=== PATIENT | male | born 2000 | race Caucasian/White ===

== ENCOUNTER 2020-10-20 15:16 | Emergency (ER) | payer MEDICAID ==
[~2020-10-20] VITALS: Ht 170.2 cm; Wt 63.6 kg
[2020-10-20] MEDS ORDERED: QUET300T2 PO (15:41)
[2020-10-20] MEDS ORDERED: ARIP5TAB14 PO ×2 (15:41)
[2020-10-20] MEDS ORDERED: DIVA500T9 PO (15:41)
[2020-10-20] MEDS ORDERED: BUSP10TA11 PO (15:41)
[2020-10-20] MEDS ORDERED: CETI-90 PO (15:41)
[2020-10-20] MEDS ORDERED: OMEP40CA21 PO (15:41)
--- NOTE | 2020-10-20 16:06 | NUR ---
Per pt's mother, last psychiatric hospitalization was 04/2020. Pt is responding to internal stimuli AEB his talking when none engaged with him with simultaneous hand gestures in the air.
[2020-10-20] MEDS ORDERED: LORazepam 2 mg/ml vial IM ONE (16:25)
[2020-10-20 16:44] LABS: BASOPHILS # (AUTO) 0.1 X10'3 (0-0.2); BASOPHILS % (AUTO) 0.7 % (0-1); EOSINOPHILS % (AUTO) 0.1 % (0-6); HEMATOCRIT 39.9 % (42.0-52.0); HEMOGLOBIN 13.7 g/dl (14.0-17.9); LYMPHOCYTES # (AUTO) 1.7 X10'3 (1.1-4.8); LYMPHOCYTES % (AUTO) 19.1 % (21-51); MEAN CORPUSCULAR HEMOGLOBIN 31.6 PG (27.0-31.0); MEAN CORPUSCULAR HGB CONC 34.3 g/dL (33.0-36.5); MEAN CORPUSCULAR VOLUME 92.1 FL (78-98); MEAN PLATELET VOLUME 7.7 FL (7.4-10.4); MONOCYTES # (AUTO) 0.9 X10'3 (0-0.9); MONOCYTES % (AUTO) 10.3 % (2-12); NEUTROPHILS # (AUTO) 6.2 X10'3 (1.8-7.7); NEUTROPHILS % (AUTO) 69.8 % (42-75); PLATELET COUNT 249 X10'3 (140-440); RED BLOOD COUNT 4.33 X10'6 (4.70-6.10); RED CELL DISTRIBUTION WIDTH 13.1 % (11.5-14.5); WHITE BLOOD COUNT 8.9 X10'3 (4.5-11.0)
[2020-10-20 16:58] LABS: ALANINE AMINOTRANSFERASE 23 U/L (12-78); ALBUMIN/GLOBULIN RATIO 1.3 (1.1-1.5); ALKALINE PHOSPHATASE 70 IU/L (46-116); ANION GAP 11 (8-16); ASPARTATE AMINO TRANSFERASE 28 U/L (10-37); BILIRUBIN,TOTAL 0.5 MG/DL (0.1-1.0); BLOOD UREA NITROGEN 17 MG/DL (7-18); CALCIUM 8.7 MG/DL (8.5-10.1); CHLORIDE 103 MMOL/L (99-107); CREATININE 1.06 MG/DL (0.60-1.10); GLUCOSE 111 MG/DL (70-104); POTASSIUM 3.3 MMOL/L (3.5-5.1); SODIUM 139 MMOL/L (135-145); TOTAL PROTEIN 7.2 G/DL (6.4-8.2); eGFR 88 ML/MIN
[2020-10-20] MEDS ORDERED: potassium Cl 20 mEq SR tablet PO ONE (17:05)
[2020-10-20 17:18] LABS: ETHANOL < 0.010 GM/DL (0.0-0.010)
[2020-10-20] MEDS ORDERED: OLANZapine **IM** 10 mg inj. IM ONE (17:20)
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
[2020-10-20 17:41] LABS: CLARITY,URINE SLIGHTLY CLOUDY (Clear); COLOR,URINE YELLOW (Yellow); GLUCOSE, URINE NEGATIVE (Neg); KETONES,URINE TRACE mg/dl (Neg); LEUKOCYTE ESTERASE ,URINE NEGATIVE (Neg); NITRITES, URINE NEGATIVE (Neg); OCCULT BLOOD,URINE NEGATIVE (Neg); PH,URINE 7.5 (4.8-8.0); PROTEIN,URINE TRACE mg/dl (Neg)
[2020-10-20 17:44] LABS: UA COLLECTION TYPE CLN CATCH MIDSTREAM
[2020-10-20 17:45] LABS: URINE AMPHETAMINE SCREEN POSITIVE (Neg); URINE BARBITUATE SCREEN NEGATIVE (Neg); URINE BENZODIAZEPINES SCREEN NEGATIVE (Neg); URINE CANNABINOID SCREEN POSITIVE (Neg); URINE COCAINE SCREEN NEGATIVE (Neg); URINE METHADONE SCREEN NEGATIVE (Neg); URINE OPIATE SCREEN NEGATIVE (Neg); URINE PHENCYCLIDINE SCREEN NEGATIVE (Neg)
[2020-10-20 17:47] LABS: AMORPHOUS PHOSPHATES 1+; BACTERIA,URINE NONE SEEN /HPF (Neg); MUCUS STRANDS FEW /LPF (Neg); RBC,URINE 0-2 /HPF (0-2); SQUAMOUS EPITHELIAL CELL,UR NONE SEEN /LPF (FEW); WBC,URINE 0-4 /HPF (0-4)
--- NOTE | 2020-10-20 19:20 | NUR ---
Patient ate a sandwich and swallowed PO potassium pills with water. Mother will be leaving- she is POA and can be reached at [phone] (Renata Gould).
--- NOTE | 2020-10-20 20:28 | NUR ---
pATIENT RESTING INS TRETCHER LAYING ON HIS SIDE, EVEN AND UNLABORED RESPIRATIONS. APPEARS TO BE ASLEEP
--- NOTE | 2020-10-20 22:50 | NUR ---
Patient resting comfortably sleeping on his side, respirations even and unlabored.
--- NOTE | 2020-10-21 09:00 | NUR ---
Attempted to assess patient unable due to patient is sedated. Patient does answer simple question with one word then gets back to sleep.
--- NOTE | 2020-10-21 11:01 | NUR ---
attempted to assess patient yet unable due to patientis sedated at this time.
--- NOTE | 2020-10-21 11:03 | NUR ---
Mental health attempted to assess patient, they stated they will come back later this afternoon to try to assess again
--- NOTE | 2020-10-21 17:47 | NUR ---
JUST CALLED [facility] TO SEE WHEN A CLINICIAN WOULD BE COMING BY TO SEE THE PT. WE WERE TOLD SOMEONE WOULD BE HERE BY 1700 TO SEE PT, AND NO ONE HAS BEEN HERE YET.
--- NOTE | 2020-10-21 18:22 | NUR ---
PT MOVED FROM ER BED 10 TO OVERFLOW BED 22
[2020-10-21 21:38] VITALS: BP 98/64
== END 2020-10-21 21:44 | disposition home or self-care (01) ==
LOC: ER 15:18
DX: F23 Brief psychotic disorder (principal); Z59.0 Homelessness; Z79.899 Other long term (current) drug therapy
CPT/HCPCS: 36415; 80053; 80305; 80320; 81001; 84443; 85025; 96372; 99284; J2060; J3490

== ENCOUNTER 2021-12-12 23:25 | Emergency (ER) | payer MEDICAID, MEDICARE ==
[~2021-12-12] VITALS: Ht 172.7 cm; Wt 60.0 kg
[~2021-12-12 23:25] MED LIST: ARIP5TAB14 PO; BUSP10TA11 PO; CETI-90 PO; DIVA500T9 PO; OMEP40CA21 PO; QUET300T2 PO
[2021-12-12] MEDS ORDERED: ketamine 50 mg/ml 10ml vial IM ONE (23:30)
[2021-12-12] MEDS ORDERED: ringers solution, lacted 1,000 ML IV ONE (23:40)
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
--- NOTE | 2021-12-13 00:01 | NUR ---
PT MEDICATED WITH KETAMINE PER MD.
[2021-12-13 00:08] LABS: BASOPHILS # (AUTO) 0.1 X10'3 (0-0.2); BASOPHILS % (AUTO) 0.8 % (0-1); EOSINOPHILS % (AUTO) 0.2 % (0-6); HEMATOCRIT 38.4 % (42.0-52.0); LYMPHOCYTES # (AUTO) 2.3 X10'3 (1.1-4.8); LYMPHOCYTES % (AUTO) 17.4 % (21-51); MEAN CORPUSCULAR HEMOGLOBIN 29.7 PG (27.0-31.0); MEAN CORPUSCULAR HGB CONC 33.9 g/dL (33.0-36.5); MEAN CORPUSCULAR VOLUME 87.4 FL (78-98); MEAN PLATELET VOLUME 7.3 FL (7.4-10.4); MONOCYTES % (AUTO) 7.6 % (2-12); NEUTROPHILS # (AUTO) 9.9 X10'3 (1.8-7.7); PLATELET COUNT 356 X10'3 (140-440); RED BLOOD COUNT 4.39 X10'6 (4.70-6.10); RED CELL DISTRIBUTION WIDTH 14.2 % (11.5-14.5); WHITE BLOOD COUNT 13.4 X10'3 (4.5-11.0)
[2021-12-13 00:42] LABS: URINE AMPHETAMINE SCREEN POSITIVE (Neg); URINE BARBITUATE SCREEN NEGATIVE (Neg); URINE BENZODIAZEPINES SCREEN NEGATIVE (Neg); URINE CANNABINOID SCREEN POSITIVE (Neg); URINE COCAINE SCREEN NEGATIVE (Neg); URINE METHADONE SCREEN NEGATIVE (Neg); URINE OPIATE SCREEN NEGATIVE (Neg); URINE PHENCYCLIDINE SCREEN NEGATIVE (Neg)
[2021-12-13 00:49] LABS: ANION GAP 19 (8-16); BLOOD UREA NITROGEN 25 MG/DL (7-18); BUN/CREATININE RATIO 16.6 (5.4-32.0); CALCIUM 9.1 MG/DL (8.5-10.1); CHLORIDE 99 MMOL/L (99-107); CREATININE 1.51 MG/DL (0.60-1.10); GLUCOSE 125 MG/DL (70-104); SODIUM 139 MMOL/L (135-145); TOTAL CARBON DIOXIDE 21.4 MMOL/L (24-32); eGFR 58 ML/MIN
[2021-12-13 00:50] LABS: ALANINE AMINOTRANSFERASE 58 U/L (12-78); ALBUMIN 4.2 G/DL (3.4-5.0); ALKALINE PHOSPHATASE 96 IU/L (46-116); ASPARTATE AMINO TRANSFERASE 79 U/L (10-37); BILIRUBIN,TOTAL 0.7 MG/DL (0.1-1.0); TOTAL PROTEIN 8.3 G/DL (6.4-8.2)
[2021-12-13 00:51] LABS: CREATINE KINASE 3383 U/L (39-308); VALPROATE < 3.0 UG/ML (50-100)
[2021-12-13 00:52] LABS: ACETAMINOPHEN < 2.0 UG/ML (10-30); POTASSIUM 2.8 MMOL/L (3.5-5.1)
[2021-12-13 00:53] LABS: ETHANOL < 0.010 GM/DL (0.0-0.010)
[2021-12-13] MEDS ORDERED: ketamine 50 mg/ml 10ml vial IM ONE (01:05)
[2021-12-13] MEDS ORDERED: normal saline 1000ML IV soln IVB ONE ×2 (01:05→07:45)
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
[2021-12-13 01:36] LABS: CLARITY,URINE SLIGHTLY CLOUDY (Clear); COLOR,URINE YELLOW (Yellow); GLUCOSE, URINE NEGATIVE (Neg); KETONES,URINE NEGATIVE (Neg); LEUKOCYTE ESTERASE ,URINE NEGATIVE (Neg); NITRITES, URINE NEGATIVE (Neg); OCCULT BLOOD,URINE TRACE-INTACT (Neg); PROTEIN,URINE 30 mg/dl (Neg); UROBILINOGEN,URINE 0.2 E.U/dL (0.2-1.0)
[2021-12-13 01:38] LABS: UA COLLECTION TYPE FOLEY CATH
[2021-12-13] MEDS: potassium Cl 10 mEq/100mL bag IV SCH ×4 (01:40→04:10)
[2021-12-13 01:45] LABS: BACTERIA,URINE NONE SEEN /HPF (Neg); MUCUS STRANDS MANY /LPF (Neg); RBC,URINE 0-2 /HPF (0-2); SQUAMOUS EPITHELIAL CELL,UR FEW /LPF (FEW); TRANSITIONAL EPI CELLS,URINE FEW /HPF; WBC,URINE 0-4 /HPF (0-4)
[2021-12-13] MEDS: potassium CL 10mEq/100ml bag 100 ML IV SCH ×2 (04:10→08:06)
[2021-12-13 04:26] LABS: ALBUMIN 3.2 G/DL (3.4-5.0); ANION GAP 9 (8-16); BLOOD UREA NITROGEN 20 MG/DL (7-18); BUN/CREATININE RATIO 22.2 (5.4-32.0); CALCIUM 7.2 MG/DL (8.5-10.1); CHLORIDE 110 MMOL/L (99-107); GLUCOSE 68 MG/DL (70-104); POTASSIUM 3.2 MMOL/L (3.5-5.1); SODIUM 142 MMOL/L (135-145); TOTAL CARBON DIOXIDE 22.7 MMOL/L (24-32); eGFR > 90 ML/MIN
[2021-12-13 04:27] LABS: CREATINE KINASE 4325 U/L (39-308)
[2021-12-13] MEDS ORDERED: ringers solution, lacted 1,000 ML IV ONE (04:50)
--- NOTE | 2021-12-13 06:40 | NUR ---
restraints removed at this time. patient calm and requesting water
[2021-12-13 07:02] LABS: ALANINE AMINOTRANSFERASE 71 U/L (12-78); ALBUMIN 3.4 G/DL (3.4-5.0); ALKALINE PHOSPHATASE 91 IU/L (46-116); ANION GAP 10 (8-16); ASPARTATE AMINO TRANSFERASE 125 U/L (10-37); BILIRUBIN,TOTAL 0.7 MG/DL (0.1-1.0); BLOOD UREA NITROGEN 19 MG/DL (7-18); BUN/CREATININE RATIO 21.8 (5.4-32.0); CALCIUM 8.1 MG/DL (8.5-10.1); CHLORIDE 105 MMOL/L (99-107); CREATININE 0.87 MG/DL (0.60-1.10); GLUCOSE 84 MG/DL (70-104); POTASSIUM 3.1 MMOL/L (3.5-5.1); SODIUM 141 MMOL/L (135-145); TOTAL CARBON DIOXIDE 25.9 MMOL/L (24-32); TOTAL PROTEIN 6.9 G/DL (6.4-8.2); eGFR > 90 ML/MIN
[2021-12-13 07:16] LABS: CREATINE KINASE 4925 U/L (39-308)
--- NOTE | 2021-12-13 07:35 | NUR ---
HAKEEM WHITT advised of K level, states he will order 40meq PO
[2021-12-13] MEDS ORDERED: potassium Cl 20 mEq SR tablet PO STA (07:46)
[2021-12-13 12:36] LABS: CREATINE KINASE 5522 U/L (39-308)
--- NOTE | 2021-12-13 13:10 | NUR ---
Pt d/chome via ambuatory in good condition,instructions given, pt verbalized understanding.
[2021-12-13 13:11] VITALS: BP 120/84
== END 2021-12-13 13:13 | disposition home or self-care (01) ==
LOC: ER 23:25
DX: S00.11XA Contusion of right eyelid and periocular area, initial encounter (principal); R74.8 Abnormal levels of other serum enzymes; E87.6 Hypokalemia; Z79.899 Other long term (current) drug therapy; Z79.2 Long term (current) use of antibiotics; W18.39XA Other fall on same level, initial encounter; Y93.89 Activity, other specified; Y92.89 Other specified places as the place of occurrence of the external cause; Y99.8 Other external cause status
CPT/HCPCS: 36415; 70450; 80048; 80053; 80164; 80178; 80305; 80320; 80329; 81001; 82550; 85025; 93005; 96361; 96372; 96374; 96375; 99285; J3480; J3490; J7030; J7120

== ENCOUNTER 2024-10-23 11:46 | Inpatient (IN) | payer MEDICARE, MEDICAID ==
[~2024-10-23] VITALS: Ht 170.2 cm; Wt 75.3 kg
[~2024-10-23 11:46] MED LIST changes: +ANBESOL MM; +ARIP15TA68 PO; -ARIP5TAB14 PO; +ATI1T PO; -BUSP10TA11 PO; -CETI-90 PO; -DIVA500T9 PO; +MULT-622 PO; -OMEP40CA21 PO; +PRAZ1CAP5 PO; +QUET-1 PO; -QUET300T2 PO; +SENN-362 PO; +TRAZ-251 PO
[2024-10-23] MEDS ORDERED: magnesium hydroxide 30ml (MOM) UD suspension PO PRN (15:45)
[2024-10-23] MEDS ORDERED: mag hydrox/Alum hydrox/simeth 30ml oral suspension PO PRN (15:45)
[2024-10-23] MEDS ORDERED: loperamide 2mg capsule PO PRN (15:45)
[2024-10-23 15:55] VITALS: BP 121/69; PULSE 80; RESP 16; TEMP 98.6; O2SAT 100
[2024-10-23 16:11] VITALS: RESP 16; O2SAT 100
[2024-10-23 17:12] LABS: MEAN PLATELET VOLUME 7.2 FL (7.4-10.4); RED CELL DISTRIBUTION WIDTH 13.7 % (11.5-14.5)
[2024-10-23 19:00] VITALS: RESP 18; O2SAT 100
[2024-10-23 20:00] VITALS: BP 115/75; PULSE 83; RESP 18; TEMP 97.1; O2SAT 100
[2024-10-23] MEDS ORDERED: POLY17PO10 PO (20:01)
[2024-10-23] MEDS ORDERED: POLY119P2 PO (20:01)
[2024-10-23] MEDS ORDERED: CLINDA TP (20:01)
[2024-10-23] MEDS ORDERED: NICOTINE POLACRILEX 2 MG LOZENGE BC PRN (22:15)
[2024-10-24 06:56] LABS: CHOL/HDL RATIO 2.8 (0.00-4.99); LDL CHOLESTEROL 71 MG/DL (50-100)
[2024-10-24] MEDS: multivitamins, therapeutics tablet PO SCH (07:29)
[2024-10-24] MEDS: polyethylene glycol 3350 17gm powd pack PO SCH (07:29)
[2024-10-24 07:32] VITALS: RESP 16; O2SAT 99
[2024-10-24 08:00] VITALS: BP 104/60; PULSE 60; RESP 16; TEMP 97.9; O2SAT 99
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
[2024-10-24 15:40] LABS: CREATININE 0.71 MG/DL (0.60-1.10); TOTAL CARBON DIOXIDE 29.1 MMOL/L (24-32); eCRCL 149 ML/MIN; eGFR > 90 ML/MIN
[2024-10-24] MEDS: NICOTINE POLACRILEX 2 MG LOZENGE BC PRN (16:03)
[2024-10-24 16:47] LABS: URINE AMPHETAMINE SCREEN POSITIVE (Neg); URINE BARBITUATE SCREEN NEGATIVE (Neg); URINE BENZODIAZEPINES SCREEN NEGATIVE (Neg); URINE CANNABINOID SCREEN POSITIVE (Neg); URINE COCAINE SCREEN NEGATIVE (Neg); URINE METHADONE SCREEN NEGATIVE (Neg); URINE OPIATE SCREEN NEGATIVE (Neg); URINE PHENCYCLIDINE SCREEN NEGATIVE (Neg)
--- NOTE | 2024-10-24 18:59 | HISTORY AND PHYSICAL-Residence ---
History & Physical Providers to CC Resident Creating Document: NADIA HAMMOND, RES ~ History of Present Illness Reason for Admit\Complaint: Mental health consult History of Present Illness The patient is a 24-year-old male with history of substance abuse disorder was admitted into the mental health unit. Patient says that he does not know why he is in the hospital and why they brought him here. He looks frustrated with what happened. He does not have any past medical history. Denies fever, cough, chest pain, palpitations, shortness of breath, nausea, vomiting, diarrhea, constipation, abdominal pain, burning micturition. He says that he has history of schizophrenia for which he was on Seroquel. He reported being compliant with his medications. Allergies: Coded Allergies: latex (Verified Allergy, Intermediate, itching redness swelling, 06/16/22) Uncoded Allergies: surgical tape, cloth (Allergy, Intermediate, redness, swelling, 04/03/22) Home Medications Home Medications Active Miralax (Polyethylene Glycol 3350) 17 Gram/Dose Powder 17 Gm PO DAILY dissolve in water [Clinda] 1 TP BID Ativan (Lorazepam) 1 Mg Tablet 1 Mg PO Q6H PRN 14 Days Senna Lax (Sennosides) 8.6 Mg Tablet 8.6 Mg PO HS 30 Days Aripiprazole 15 Mg Tablet 30 Mg PO DAILY 30 Days Trazodone HCl 50 Mg Tablet 200 Mg PO HS 30 Days Prazosin Hcl 1 Mg Capsule 1 Mg PO HS 30 Days Daily Slick (Multivitamin) 1 Each Tablet 1 Tab PO DAILY 30 Days Seroquel* (Quetiapine Fumarate) 100 Mg Tablet 550 Tab PO HS 30 Days Reported Miralax* (Polyethylene Glycol) 1 Packet Packet 1 Pkt PO DAILY dissolve in water Past Medical History Past Medical History Substance use disorder Schizophrenia Past Surgical History Surgical History Comment None Family History Family History: FH: stomach ulcer MOTHER Past Social History Social History Comment The patient is single and lives by himself. Smokes about one pack of cigarettes per day. Denies alcohol consumption. Does methamphetamines. Does not remember the last time he took methamphetamines. Drug Use: Methamphetamine Lives In: Homeless ROS ROS Reviewed in full. Negative except for pertinent positives in HPI. Exam Vitals: Vital Signs Date Time Temp Pulse Resp B/P (MAP) Pulse Ox O2 Delivery O2 Flow Rate FiO2 10/24/24 08:00 97.9 60 16 104/60 (75) 99 Room Air General: Adult male, alert and oriented, easily irritable Head: Normocephalic with an atraumatic Eyes: Pupils- 3mm, reacting to light, conjunctiva- anicteric Nose and throat: No polyps, septum- normal, no mucosal ulcers Neck: Supple, no lymphadenopathy, no carotid bruit Respiratory: No use of accessory muscles of respiration, Bilateral normal vesiscular breath sounds heard. No wheeze, rhochi or creps Cardiac: S1-S2 heard, rhythm regular, no gallop/murmur Abdomen: non distended, no tenderness, no organomegaly, bowel sounds - heard Extremities: no clubbing, no pedal edema, no deformities, peripheral pulses - 2+ Skin: warm and dry, no rash, no purpura Neuro: No focal deficit, gross cranial nerve exam - normal Diagnostic Data Last Recorded Lab Results: 10/23/24 1603 10/24/24 0633 Additional Plan Schizophrenia Management as per Psychiatry. Substance use history Urine toxicology screen positive for cannabinoids and methamphetamines. Management as per Psychiatry. Substance use navigator and high school social studies teacher. Labs reviewed. The patient does not have any other past or present medical conditions. Disposition: Hospitalist team will continue to follow the patient during the course of his hospital stay. Nadia Hammond MD Internal Medicine Resident, PGY-1 Date of Service: Oct 24, 2024 Billing Provider: ABEL DUKES MD Common Visit Codes: [id number] INP/OBS CARE(LOW) NADIA HAMMOND, RES Oct 24, 2024 18:59 ABEL DUKES MD Oct 25, 2024 12:10
[2024-10-24 19:00] VITALS: BP 116/48; PULSE 63; RESP 16; TEMP 97.4; O2SAT 96
[2024-10-25 07:00] VITALS: RESP 16; O2SAT 100
[2024-10-25 08:00] VITALS: BP 99/50; PULSE 57; RESP 16; TEMP 97.8; O2SAT 100
--- NOTE | 2024-10-25 13:01 | PROGRESS NOTE ---
Progress Note Dictate Providers to CC ~ Central Line/PICC still needed: N\\A Antibiotic Ordered?: No MRSA Education MRSA Education Provided to pt: No Objective Vitals Vital Signs Date Time Temp Pulse Resp B/P (MAP) Pulse Ox O2 Delivery O2 Flow Rate FiO2 10/25/24 08:00 97.8 57 16 99/50 (66) 100 Room Air Lab Results: 10/23/24 1603 10/24/24 0633 Counseling Services Smoking & Tobacco Cessation: > 10 Minutes Problem\\Assessment\\Plan Problems/Diagnosis: (1) Gravely disabled (2) Schizophrenia Psychiatrist's Progress Note Date of Service: Oct 25, 2024 Notes CHART REVIEW Pt is a 24-year-old single male who is currently conserved in [facility] and his conservator is Yocasta Vinson. Pt was recently at [facility] and was discharged in May 2024 and had placement at [facility] in [place]. 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 The pt is now at [facility] awaiting new placement. The pt reports that he felt he was doing well at his most recent placement and doesn't understand why he was moved out and why he likely cannot return. The pt reports that he was close to his dad and was getting visits and is worried he'll be moved to another facility with more restrictions. The pt appears upset and unable to process how the course of his actions led to where he's at now. The pt will likely be at [facility] until his conservator finds placement for him. ASSESSMENT The patient was interviewed in observation room. The patient was actively walking in hallway. The patient endorses " I really hope I can go back." Patient endorses no worsening mental health symptoms. Denies SI. Denies HI. Denies AVH. Patient endorses adequate sleep and food intake. The patient is stable no acute distress noted. The patient presents as a bit anxious, depressed, cooperative, and engaged during session. Despite the patient's drug screen coming back positive for amphetamines patient denies any drug use. Per staff report patient is medication compliant. Per staff report no abnormal behaviors. Per staff report patient has been engaging with activities in peers. Will continue daily assessment and adjusting treatment as needed. Closely monitor behavior and response to medication during hospitalization. Results Of any Diagn. Testing REVIEW OF LABS WBC 8.0 RBC 4.55 HEMOGLOBIN 14.2 HEMATOCRIT 41.8 PLATELET [id number] SODIUM 143 POTASSIUM 4.2 CHLORIDE 104 ANION GAP 10 BUN 11 CREATININE 0.71 CALCIUM 8.8 ALBUMIN 3.8 TSH 0.78 LDL 71 HDL 50 TRIGLYCERIDES 111 URINE TOX SCREEN POSITIVE CANNABIS AND AMPHETAMINES URINALYSIS NEGATIVE Appearnace: Other (APPROPRIATE. AVERAGE WEIGHT AVERAGE HEIGHT MALE. WEARING STREET CLOTHING. SHABBY HAIRCUT) Speech: Other (CIRCUMSTANTIAL ) Eye Contact: Other (INTERMITTENT) Motor Activity: Normal Affect: Full Mood: Anxious Orientation Impairment: None Memory Impairment: None Attention: Normal Hallucinations: None Other: None Suicidality: None Homicidality: None Delusions: None Behavior: Cooperative Insight: Fair, Poor Judgment: Poor Treatment ABILIFY 30 MG P.O. DAILY PRAZOSIN 1 MG P.O. Q.H.S. SEROQUEL 550 MG P.O. Q.H.S. TRAZODONE 200 MG P.O. Q.H.S. SENNA 8.6 MG ONE TAB P.O. Q.H.S. ATIVAN 1 MG P.O. Q.6 PRN NEEDED FOR ANXIETY Monitoring by Staff, Milieu, Group, and Individual counseling as needed -- According to the [place] Suicide Assessment the above named patient is on Q15 MINUTE CHECKS. LPS CONSERVED Total time spent 40 minutes on REVIEW OF Clinical notes [X ] RN notes [X] PCT documentation [X] SW notes Labs [ X] Medications [X] Care trends/care activity [X] Vitals [X] DISCUSSION WITH laboratory chemist [X] Staff SW Treatment Team [X] Discharge UNSURE AT THIS TIME. PATIENT IS LPS CONSERVED AWAITING PLACEMENT. CODING VISIT-PSYCHIATRY Date of Service: Oct 25, 2024 Billing Provider: KARIS HALLMAN APRN Psych Common Visit Codes: [id number] INP/OBS CARE(Mod) KARIS HALLMAN APRN Oct 25, 2024 13:01
[2024-10-25 20:00] VITALS: BP 119/69; PULSE 70; RESP 14; TEMP 98.1; O2SAT 99
[2024-10-26 07:30] VITALS: BP 119/68; PULSE 70; RESP 16; TEMP 97.5; O2SAT 100
[2024-10-26] MEDS: lactose-reduced food (Ensure Enlive) - 237ml bottle PO SCH (08:02)
--- NOTE | 2024-10-26 10:22 | PROGRESS NOTE ---
Progress Note Dictate Providers to CC ~ Central Line/PICC still needed: N\\A Antibiotic Ordered?: No MRSA Education MRSA Education Provided to pt: No Objective Vitals Vital Signs Date Time Temp Pulse Resp B/P (MAP) Pulse Ox O2 Delivery O2 Flow Rate FiO2 10/25/24 20:00 98.1 70 14 119/69 (86) 99 Room Air Lab Results: 10/23/24 1603 10/24/24 0633 Counseling Services Smoking & Tobacco Cessation: > 10 Minutes Problem\\Assessment\\Plan Problems/Diagnosis: (1) Gravely disabled (2) Schizophrenia Psychiatrist's Progress Note Date of Service: Oct 26, 2024 Notes CHART REVIEW Pt is a 24-year-old single male who is currently conserved in [facility] and his conservator is Yocasta Vinson. Pt was recently at [facility] and was discharged in May 2024 and had placement at [facility] in [place]. 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 The pt is now at [facility] awaiting new placement. The pt reports that he felt he was doing well at his most recent placement and doesn't understand why he was moved out and why he likely cannot return. The pt reports that he was close to his dad and was getting visits and is worried he'll be moved to another facility with more restrictions. The pt appears upset and unable to process how the course of his actions led to where he's at now. The pt will likely be at [facility] until his conservator finds placement for him. ASSESSMENT The patient was interviewed in observation room. The patient was actively walking in hallway. The patient endorses "Fine." The patient was informed he is not able to return [facility] due to non-compliance. The patient endorses no worsening mental health symptoms. Denies SI. Denies HI. Denies AVH. Patient endorses adequate sleep and food intake. The patient is stable no acute distress noted. The patient presents as a bit anxious, cooperative, and engaged during session. Despite the patient's drug screen coming back positive for amphetamines patient denies any drug use. Per staff report patient is medication compliant. Per staff report no abnormal behaviors. Per staff report patient has been engaging with activities in peers. Will continue daily assessment and adjusting treatment as needed. Closely monitor behavior and response to medication during hospitalization. Results Of any Diagn. Testing REVIEW OF LABS WBC 8.0 RBC 4.55 HEMOGLOBIN 14.2 HEMATOCRIT 41.8 PLATELET [id number] SODIUM 143 POTASSIUM 4.2 CHLORIDE 104 ANION GAP 10 BUN 11 CREATININE 0.71 CALCIUM 8.8 ALBUMIN 3.8 TSH 0.78 LDL 71 HDL 50 TRIGLYCERIDES 111 URINE TOX SCREEN POSITIVE CANNABIS AND AMPHETAMINES URINALYSIS NEGATIVE Speech: Other (CIRCUMSTANTIAL) Eye Contact: Normal Motor Activity: Normal Affect: Full Mood: Anxious, Irritable Orientation Impairment: None Memory Impairment: None Attention: Normal Hallucinations: None Other: None Suicidality: None Homicidality: None Delusions: None Behavior: Cooperative Insight: Fair, Poor Judgment: Poor Treatment ABILIFY 30 MG P.O. DAILY PRAZOSIN 1 MG P.O. Q.H.S. SEROQUEL 550 MG P.O. Q.H.S. TRAZODONE 200 MG P.O. Q.H.S. SENNA 8.6 MG ONE TAB P.O. Q.H.S. ATIVAN 1 MG P.O. Q.6 PRN NEEDED FOR ANXIETY Monitoring by Staff, Milieu, Group, and Individual counseling as needed -- According to the [place] Suicide Assessment the above named patient is on Q15 MINUTE CHECKS. LPS CONSERVED Total time spent 45 minutes on REVIEW OF Clinical notes [X ] RN notes [X] PCT documentation [X] SW notes Labs [ X] Medications [X] Care trends/care activity [X] Vitals [X] DISCUSSION WITH water quality analyst [X] Staff SW Treatment Team [X] Discharge UNSURE AT THIS TIME. PATIENT IS LPS CONSERVED AWAITING PLACEMENT. CODING VISIT-PSYCHIATRY Date of Service: Oct 26, 2024 Billing Provider: KARIS HALLMAN APRN Psych Common Visit Codes: [id number] INP/OBS CARE(Mod) KARIS HALLMAN APRN Oct 26, 2024 10:22
[2024-10-26 18:46] VITALS: RESP 16
--- NOTE | 2024-10-26 18:49 | PROGRESS NOTE ---
Daily Progress Note Providers to CC ~ Antibiotic Timeout Antibiotic Ordered?: No Subjective Patient was seen in mental health unit in presence of nursing staff he denied any concerns looks comfortable Objective Vital Signs Date Time Temp Pulse Resp B/P (MAP) Pulse Ox O2 Delivery O2 Flow Rate FiO2 10/26/24 07:30 97.5 70 16 119/68 (85) 100 Room Air Result Diagram: 10/23/24 1603 10/24/24 0633 General-patient not in any acute distress, awake , age-appropriate, looks comfortable HEENT-atraumatic normocephalic, neck supple without elevated JVD, No lymphadenopathy bilaterally. Eyes-no icterus or pallor seen in eyes Chest-clear to auscultation bilaterally, breathing nonlabored no tachypnea, no wheezing, no crepitation, no crackles. Heart-S1-S2 normal, regular heart rate no murmur Abdomen bowel sounds positive on auscultation, soft nondistended nontender no guarding, no rigidity Skin no active skin rash Neurology-grossly intact, nonfocal alert awake oriented Extremity- no pedal edema able to move all 4 extremities Psychiatry - patient is not confused or agitated cooperated during physical examination Problem\Assessment\Plan Schizophrenia Management as per Psychiatry. Substance use history Urine toxicology screen positive for cannabinoids and methamphetamines. Management as per Psychiatry. Substance use navigator and social sciences chair. Labs reviewed. The patient does not have any other past or present medical conditions. Disposition: Hospitalist team will continue to follow the patient during the course of his hospital stay. Date of Service: Oct 26, 2024 Billing Provider: ALBARO BARNETT MD Common Visit Codes: [id number] INP/OBS CARE(LOW) ALBARO BARNETT MD Oct 26, 2024 18:49
[2024-10-26 19:42] VITALS: BP 118/58; PULSE 55; RESP 18; TEMP 97.7; O2SAT 95
--- NOTE | 2024-10-27 06:24 | PROGRESS NOTE ---
Progress Note Dictate Providers to CC ~ Central Line/PICC still needed: N\\A Antibiotic Ordered?: No MRSA Education MRSA Education Provided to pt: No Objective Vitals Vital Signs Date Time Temp Pulse Resp B/P (MAP) Pulse Ox O2 Delivery O2 Flow Rate FiO2 10/26/24 19:42 97.7 55 18 118/58 (78) 95 10/26/24 18:46 Room Air Lab Results: 10/23/24 1603 10/24/24 0633 Counseling Services Smoking & Tobacco Cessation: > 10 Minutes Problem\\Assessment\\Plan Problems/Diagnosis: (1) Gravely disabled (2) Schizophrenia Psychiatrist's Progress Note Date of Service: Oct 27, 2024 Notes CHART REVIEW Pt is a 24-year-old single male who is currently conserved in [facility] and his conservator is Yocasta Vinson. Pt was recently at [facility] and was discharged in May 2024 and had placement at [facility] in [place]. 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 The pt is now at [facility] awaiting new placement. The pt reports that he felt he was doing well at his most recent placement and doesn't understand why he was moved out and why he likely cannot return. The pt reports that he was close to his dad and was getting visits and is worried he'll be moved to another facility with more restrictions. The pt appears upset and unable to process how the course of his actions led to where he's at now. The pt will likely be at [facility] until his conservator finds placement for him. ASSESSMENT The patient was interviewed in observation room. The patient was actively resting in bed with eyes open. The patient endorses "I'm fine." "I can't believe I can't go back, I really liked that place." The patient endorses no worsening mental health symptoms. Denies SI. Denies HI. Denies AVH. Patient endorses adequate sleep and food intake. The patient is stable no acute distress noted. The patient presents as calm, cooperative, and engaged during session. Per staff report patient is medication compliant. Per staff report no abnormal behaviors. Per staff report patient has been engaging with activities in peers. Will continue daily assessment and adjusting treatment as needed. Closely monitor behavior and response to medication during hospitalization. Results Of any Diagn. Testing REVIEW OF LABS WBC 8.0 RBC 4.55 HEMOGLOBIN 14.2 HEMATOCRIT 41.8 PLATELET [id number] SODIUM 143 POTASSIUM 4.2 CHLORIDE 104 ANION GAP 10 BUN 11 CREATININE 0.71 CALCIUM 8.8 ALBUMIN 3.8 TSH 0.78 LDL 71 HDL 50 TRIGLYCERIDES 111 URINE TOX SCREEN POSITIVE CANNABIS AND AMPHETAMINES URINALYSIS NEGATIVE Appearnace: Other Speech: Impoverished, Other (CIRCUMSTANTIAL) Eye Contact: Other (INTERMITTENT) Motor Activity: Normal Affect: Constricted Orientation Impairment: None Memory Impairment: None Attention: Normal Hallucinations: None Other: None Suicidality: None Homicidality: None Delusions: None Behavior: Cooperative Insight: Fair, Poor Judgment: Fair, Poor Treatment ABILIFY 30 MG P.O. DAILY PRAZOSIN 1 MG P.O. Q.H.S. SEROQUEL 550 MG P.O. Q.H.S. TRAZODONE 200 MG P.O. Q.H.S. SENNA 8.6 MG ONE TAB P.O. Q.H.S. ATIVAN 1 MG P.O. Q.6 PRN NEEDED FOR ANXIETY Monitoring by Staff, Milieu, Group, and Individual counseling as needed -- According to the [place] Suicide Assessment the above named patient is on Q15 MINUTE CHECKS. LPS CONSERVED Total time spent 35 minutes on REVIEW OF Clinical notes [X ] RN notes [X] PCT documentation [X] SW notes Labs [ X] Medications [X] Care trends/care activity [X] Vitals [X] DISCUSSION WITH administrative professional [X] Staff SW Treatment Team [X] Discharge UNSURE AT THIS TIME. PATIENT IS LPS CONSERVED AWAITING PLACEMENT. CODING VISIT-PSYCHIATRY Date of Service: Oct 27, 2024 Billing Provider: KARIS HALLMAN APRN Psych Common Visit Codes: [id number] INP/OBS CARE(Mod) Problem Qualifiers (1) Schizophrenia: Qualified Codes: F20.9 - Schizophrenia, unspecified KARIS HALLMAN APRN Oct 27, 2024 06:24
[2024-10-27 07:30] VITALS: BP 94/58; PULSE 71; RESP 16; TEMP 98.8; O2SAT 97
[2024-10-27 18:48] VITALS: RESP 16
[2024-10-27 19:17] VITALS: BP 118/73; PULSE 71; RESP 16; TEMP 98.8; O2SAT 96
[2024-10-28 07:30] VITALS: BP 115/65; PULSE 88; RESP 16; TEMP 97.4; O2SAT 98
--- NOTE | 2024-10-28 17:01 | PROGRESS NOTE ---
Progress Note Dictate Providers to CC ~ Central Line/PICC still needed: N\A Antibiotic Ordered?: No Objective Vitals Vital Signs Date Time Temp Pulse Resp B/P (MAP) Pulse Ox O2 Delivery O2 Flow Rate FiO2 10/28/24 07:30 16 98 Room Air 10/28/24 07:30 97.4 88 115/65 (82) Lab Results: 10/24/24 0633 Problem\Assessment\Plan Problems/Diagnosis: (1) Schizophrenia (2) Gravely disabled Psychiatrist's Progress Note Date of Service: Oct 28, 2024 Notes Temo Cook is a 24-year-old single male who is currently conserved in [facility] and his conservator is Yocasta Vinson. Pt was recently at [facility] and was discharged in May 2024 and had placement at [facility] in [place]. 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 The pt is now at [facility] awaiting new placement. The pt reports that he felt he was doing well at his most recent placement and doesn't understand why he was moved out and why he likely cannot return. The pt reports that he was close to his dad and was getting visits and is worried he'll be moved to another facility with more restrictions. The pt appears upset and unable to process how the course of his actions led to where he's at now. The pt will likely be at [facility] until his conservator finds placement for him. Patient is of normal height and weight. He has short dark hair. Some acne. Not much facial hair. He is wearing street clothes. He is up pacing the hallways. He is a little sad because he is back here. Nothing much going on. Had a relapse. Got caught with a girl in his room and a baggie with residue. Then ended up using again because he might as well if he was going to get blamed for it. Might go to board and care or locked. Little depressed, mad at himself. Doesn't want to use again. It's hard. Doesn't think rehab or AA would work. may want to use more. A little irritable. No AH/VH. No Paranoia. Sleeping okay but wondering if can get more med to help sleep. Last BM today. Mental Status Eye contact: Fair; Behavior: Cooperative. Speech: Regular Mood: 'I'm okay' Affect: Constricted. Thought process: No disorganization, Minimal speech. Denies Paranoid Delusions. Thought Content: immediate needs/medications. Cognition: A&O X4; Insight: Poor. Judgment: Very Poor and impulsive; SI Denies/HI Denies, AH Denies/VH Denies Results Of any Diagn. Testing REVIEW OF LABS WBC 8.0 RBC 4.55 HEMOGLOBIN 14.2 HEMATOCRIT 41.8 PLATELET [id number] SODIUM 143 POTASSIUM 4.2 CHLORIDE 104 ANION GAP 10 BUN 11 CREATININE 0.71 CALCIUM 8.8 ALBUMIN 3.8 TSH 0.78 LDL 71 HDL 50 TRIGLYCERIDES 111 URINE TOX SCREEN POSITIVE CANNABIS AND AMPHETAMINES URINALYSIS NEGATIVE Treatment Fairly stable. Increase seroquel 600mg hs from 550mg ABILIFY 30 MG P.O. DAILY PRAZOSIN 1 MG P.O. Q.H.S. SEROQUEL 600 MG P.O. Q.H.S. TRAZODONE 200 MG P.O. Q.H.S. SENNA 8.6 MG ONE TAB P.O. Q.H.S. ATIVAN 1 MG P.O. Q.6 PRN NEEDED FOR ANXIETY Monitoring by Staff, Milieu, Group, and Individual counseling as needed -- According to the [place] Suicide Assessment the above named patient is on Q15 MINUTE CHECKS. LPS CONSERVED Discharge UNSURE AT THIS TIME. PATIENT IS LPS CONSERVED AWAITING PLACEMENT. REVIEW OF Clinical notes [X ] RN notes [X] PCT documentation [X] SW notes [X] Labs [ X] Medications [X] Care trends/care activity [X] Vitals [X] DISCUSSION WITH security test engineer [X] CODING VISIT-PSYCHIATRY Date of Service: Oct 28, 2024 Billing Provider: HARRY HALL Psych Common Visit Codes: [id number] INP/OBS CARE(Mod) Problem Qualifiers (1) Schizophrenia: Qualified Codes: F20.9 - Schizophrenia, unspecified HARRY HALL Oct 28, 2024 17:01
[2024-10-28 19:00] VITALS: RESP 18; O2SAT 97
--- NOTE | 2024-10-28 19:28 | PROGRESS NOTE- Residence ---
Progress Note - Resident Providers to CC Resident Creating Document: NADIA HAMMOND, RES ~ Antibiotic Timeout Antibiotic Ordered?: No Subjective The patient was seen and examined at bedside today. He has no new complaints except for an acne on his chin. Objective Vital Signs Date Time Temp Pulse Resp B/P (MAP) Pulse Ox O2 Delivery O2 Flow Rate FiO2 10/28/24 07:30 16 98 Room Air 10/28/24 07:30 97.4 88 115/65 (82) Result Diagram: 10/24/24 0633 Adult male, alert and oriented, not in acute distress Head: Normocephalic with an atraumatic Eyes: Pupils- 3mm, reacting to light, conjunctiva- anicteric Nose and throat: No polyps, septum- normal, no mucosal ulcers Neck: Supple, no lymphadenopathy, no carotid bruit Respiratory: No use of accessory muscles of respiration, Bilateral normal vesiscular breath sounds heard. No wheeze, rhochi or creps Cardiac: S1-S2 heard, rhythm regular, no gallop/murmur Abdomen: non distended, no tenderness, no organomegaly, bowel sounds - heard Extremities: no clubbing, no pedal edema, no deformities, peripheral pulses - 2+ Skin: warm and dry, no rash, no purpura, multiple acne on his face Neuro: No focal deficit, gross cranial nerve exam - normal Plan Plan Schizophrenia Management as per Psychiatry. Substance use history Urine toxicology screen positive for cannabinoids and methamphetamines. Management as per Psychiatry. Substance use navigator and psych social worker. Labs reviewed. The patient does not have any other past or present medical conditions. Disposition: Hospitalist team will continue to follow the patient during the course of his hospital stay. Nadia Hammond MD Internal Medicine Resident, PGY-1 Date of Service: Oct 28, 2024 Billing Provider: JOY NOLASCO MD Common Visit Codes: [id number] INP/OBS CARE(MOD) NADIA HAMMOND, RES Oct 28, 2024 19:28 JOY NOLASCO MD Oct 31, 2024 16:41
[2024-10-28 19:45] VITALS: BP 106/54; PULSE 65; RESP 18; TEMP 97.9; O2SAT 97
[2024-10-29 08:00] VITALS: BP 107/60; PULSE 60; RESP 16; TEMP 99.1; O2SAT 100
--- NOTE | 2024-10-29 17:51 | PROGRESS NOTE ---
Progress Note Dictate Providers to CC ~ Central Line/PICC still needed: N\A Antibiotic Ordered?: No Objective Vitals Vital Signs Date Time Temp Pulse Resp B/P (MAP) Pulse Ox O2 Delivery O2 Flow Rate FiO2 10/29/24 08:00 99.1 60 16 107/60 (76) 100 Room Air Problem\Assessment\Plan Problems/Diagnosis: (1) Schizophrenia (2) Gravely disabled Psychiatrist's Progress Note Date of Service: Oct 29, 2024 Notes Temo Cook is a 24-year-old single male who is currently conserved in [facility] and his conservator is Yocasta Vinson. Pt was recently at [facility] and was discharged in May 2024 and had placement at [facility] in [place]. 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 The pt is now at [facility] awaiting new placement. The pt reports that he felt he was doing well at his most recent placement and doesn't understand why he was moved out and why he likely cannot return. The pt reports that he was close to his dad and was getting visits and is worried he'll be moved to another facility with more restrictions. The pt appears upset and unable to process how the course of his actions led to where he's at now. The pt will likely be at [facility] until his conservator finds placement for him. Patient is of normal height and weight. He has short dark hair. Some acne. No real facial hair. He is wearing street clothes. He is up walking the hallway after dinner and states he is doing fine for the most part. He states his mood has been fine. Not depressed or anxious. He denies any AH/VH or paranoid thinking. He has no huge complaints. He had a visit with his mother today. He wishes he could smoke. He is waiting for RN to bring him a nicotine lozenge. States he had an episode where he had a muscle spasm and felt unsteady on his feet for a second. Wondering if meds can cause this. Mental Status Eye contact: Fair; Behavior: Cooperative. Speech: Regular Mood: 'I'm okay' Affect: Constricted. Thought process: No disorganization, Minimal speech. Denies Paranoid Delusions. Thought Content: immediate needs/medications. Cognition: A&O X4; Insight: Poor. Judgment: Very Poor and impulsive; SI Denies/HI Denies, AH Denies/VH Denies Results Of any Diagn. Testing REVIEW OF LABS WBC 8.0 RBC 4.55 HEMOGLOBIN 14.2 HEMATOCRIT 41.8 PLATELET [id number] SODIUM 143 POTASSIUM 4.2 CHLORIDE 104 ANION GAP 10 BUN 11 CREATININE 0.71 CALCIUM 8.8 ALBUMIN 3.8 TSH 0.78 LDL 71 HDL 50 TRIGLYCERIDES 111 URINE TOX SCREEN POSITIVE CANNABIS AND AMPHETAMINES URINALYSIS NEGATIVE Treatment Hypotensive. Encouraged more fluids. ABILIFY 30 MG P.O. DAILY PRAZOSIN 1 MG P.O. Q.H.S. SEROQUEL 550 MG P.O. Q.H.S. TRAZODONE 200 MG P.O. Q.H.S. SENNA 8.6 MG ONE TAB P.O. Q.H.S. ATIVAN 1 MG P.O. Q.6 PRN NEEDED FOR ANXIETY Monitoring by Staff, Milieu, Group, and Individual counseling as needed -- According to the [place] Suicide Assessment the above named patient is on Q15 MINUTE CHECKS. LPS CONSERVED Discharge UNSURE AT THIS TIME. PATIENT IS LPS CONSERVED AWAITING PLACEMENT. REVIEW OF Clinical notes [X ] RN notes [X] PCT documentation [X] SW notes [X] Labs [ X] Medications [X] Care trends/care activity [X] Vitals [X] DISCUSSION WITH talent development director [X] CODING VISIT-PSYCHIATRY Date of Service: Oct 29, 2024 Billing Provider: HARRY HALL Psych Common Visit Codes: [id number] INP/OBS CARE(Mod) Problem Qualifiers (1) Schizophrenia: Qualified Codes: F20.9 - Schizophrenia, unspecified HARRY HALL Oct 29, 2024 17:51
[2024-10-29 19:00] VITALS: RESP 18; O2SAT 99
[2024-10-29 20:00] VITALS: BP 123/64; PULSE 68; RESP 18; TEMP 97.2; O2SAT 99
[2024-10-30 08:00] VITALS: BP 107/58; PULSE 60; RESP 16; TEMP 97.3; O2SAT 99
--- NOTE | 2024-10-30 09:54 | PROGRESS NOTE ---
Progress Note Dictate Providers to CC ~ Central Line/PICC still needed: N\\A Antibiotic Ordered?: No MRSA Education MRSA Education Provided to pt: No Objective Vitals Vital Signs Date Time Temp Pulse Resp B/P (MAP) Pulse Ox O2 Delivery O2 Flow Rate FiO2 10/29/24 20:00 97.2 68 18 123/64 (83) 99 Room Air Problem\\Assessment\\Plan Problems/Diagnosis: (1) Gravely disabled (2) Schizophrenia Psychiatrist's Progress Note Date of Service: Oct 30, 2024 Notes CHART REVIEW Pt is a 24-year-old single male who is currently conserved in [facility] and his conservator is Yocasta Vinson. Pt was recently at [facility] and was discharged in May 2024 and had placement at [facility] in [place]. 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 The pt is now at [facility] awaiting new placement. The pt reports that he felt he was doing well at his most recent placement and doesn't understand why he was moved out and why he likely cannot return. The pt reports that he was close to his dad and was getting visits and is worried he'll be moved to another facility with more restrictions. The pt appears upset and unable to process how the course of his actions led to where he's at now. The pt will likely be at [facility] until his conservator finds placement for him. ASSESSMENT The patient was interviewed in observation room. The patient was actively standing in hallway. The patient endorses "Temo is doing well." "I hope I can stay here until my conservatorship is up by next year so I can go on my own." The patient endorses no worsening mental health symptoms. Denies SI. Denies HI. Denies AVH. Patient endorses adequate sleep and food intake. The patient is stable no acute distress noted. The patient presents as calm, cooperative, and engaged during session. Per staff report patient is medication compliant. Per staff report no abnormal behaviors. Per staff report patient has been engaging with activities in peers. Will continue daily assessment and adjusting treatment as needed. Closely monitor behavior and response to medi cation during hospitalization. Results Of any Diagn. Testing REVIEW OF LABS WBC 8.0 RBC 4.55 HEMOGLOBIN 14.2 HEMATOCRIT 41.8 PLATELET [id number] SODIUM 143 POTASSIUM 4.2 CHLORIDE 104 ANION GAP 10 BUN 11 CREATININE 0.71 CALCIUM 8.8 ALBUMIN 3.8 TSH 0.78 LDL 71 HDL 50 TRIGLYCERIDES 111 URINE TOX SCREEN POSITIVE CANNABIS AND AMPHETAMINES URINALYSIS NEGATIVE Appearnace: Other (APPROPRIATE. AVERAGE HIGH AVERAGE WEIGHT MALE. WEARING STREET CLOTHING. SHORT DARK HAIR.) Speech: Other (CIRCUMSTANTIAL) Eye Contact: Normal Motor Activity: Normal Affect: Full Mood: Euthymic Orientation Impairment: None Memory Impairment: None Attention: Normal Hallucinations: None Other: None Suicidality: None Homicidality: None Delusions: None Behavior: Cooperative Insight: Fair Judgment: Fair Treatment ABILIFY 30 MG P.O. DAILY PRAZOSIN 1 MG P.O. Q.H.S. SEROQUEL 550 MG P.O. Q.H.S. TRAZODONE 200 MG P.O. Q.H.S. SENNA 8.6 MG ONE TAB P.O. Q.H.S. ATIVAN 1 MG P.O. Q.6 PRN NEEDED FOR ANXIETY Monitoring by Staff, Milieu, Group, and Individual counseling as needed -- According to the [place] Suicide Assessment the above named patient is on Q15 MINUTE CHECKS. LPS CONSERVED Total time spent 45 minutes on REVIEW OF Clinical notes [X ] RN notes [X] PCT documentation [X] SW notes Labs [ X] Medications [X] Care trends/care activity [X] Vitals [X] DISCUSSION WITH fibre technologist [X] Staff SW Treatment Team [X] Discharge UNSURE AT THIS TIME. PATIENT IS LPS CONSERVED AWAITING PLACEMENT. CODING VISIT-PSYCHIATRY Date of Service: Oct 30, 2024 Billing Provider: KARIS HALLMAN APRN Psych Common Visit Codes: [id number] INP/OBS CARE(Mod) Problem Qualifiers (1) Schizophrenia: Qualified Codes: F20.9 - Schizophrenia, unspecified KARIS HALLMAN APRN Oct 30, 2024 09:54
[2024-10-30 13:53] VITALS: BP 107/58; PULSE 60; RESP 16; TEMP 97.3; O2SAT 99
[2024-10-30 19:43] VITALS: RESP 18; O2SAT 97
[2024-10-30 20:00] VITALS: BP 137/71; PULSE 79; RESP 18; TEMP 98.5; O2SAT 97
--- NOTE | 2024-10-30 20:41 | PROGRESS NOTE ---
Daily Progress Note Providers to CC ~ Antibiotic Timeout Antibiotic Ordered?: No Subjective Patient was seen in his room looks comfortable cooperated during physical exam denied any concerns, passed stools today Objective Vital Signs Date Time Temp Pulse Resp B/P (MAP) Pulse Ox O2 Delivery O2 Flow Rate FiO2 10/30/24 19:43 18 97 Room Air 10/30/24 13:53 97.3 60 107/58 (74) General-patient not in any acute distress, awake , age-appropriate, looks comfortable HEENT-atraumatic normocephalic, neck supple without elevated JVD, No lymphadenopathy bilaterally. Eyes-no icterus or pallor seen in eyes Chest-clear to auscultation bilaterally, breathing nonlabored no tachypnea, no wheezing, no crepitation, no crackles. Heart-S1-S2 normal, regular heart rate no murmur Abdomen bowel sounds positive on auscultation, soft nondistended nontender no guarding, no rigidity Skin no active skin rash Neurology-grossly intact, nonfocal alert awake oriented Extremity- no pedal edema able to move all 4 extremities Psychiatry - patient is not confused or agitated cooperated during physical examination Problem\Assessment\Plan Schizophrenia Management as per Psychiatry. Substance use history Urine toxicology screen positive for cannabinoids and methamphetamines. Management as per Psychiatry. Substance use navigator and social security benefits interviewer. Labs reviewed. The patient does not have any other past or present medical conditions. Disposition: Hospitalist team will continue to follow the patient during the course of his hospital stay. Date of Service: Oct 30, 2024 Billing Provider: ALBARO BARNETT MD Common Visit Codes: [id number] INP/OBS CARE(LOW) ALBARO BARNETT MD Oct 30, 2024 20:41
[2024-10-31 07:34] VITALS: BP 110/58; PULSE 65; RESP 12; TEMP 97.3; O2SAT 99
[2024-10-31 08:30] VITALS: RESP 12
--- NOTE | 2024-10-31 10:21 | PROGRESS NOTE ---
Progress Note Dictate Providers to CC ~ Central Line/PICC still needed: N\\A Antibiotic Ordered?: No MRSA Education MRSA Education Provided to pt: No Objective Vitals Vital Signs Date Time Temp Pulse Resp B/P (MAP) Pulse Ox O2 Delivery O2 Flow Rate FiO2 10/31/24 08:30 12 Room Air 10/31/24 07:34 97.3 65 110/58 (75) 99 Problem\\Assessment\\Plan Problems/Diagnosis: (1) Gravely disabled (2) Schizophrenia Psychiatrist's Progress Note Date of Service: Oct 31, 2024 Notes CHART REVIEW Pt is a 24-year-old single male who is currently conserved in [facility] and his conservator is Yocasta Vinson. Pt was recently at [facility] and was discharged in May 2024 and had placement at [facility] in [place]. 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 The pt is now at [facility] awaiting new placement. The pt reports that he felt he was doing well at his most recent placement and doesn't understand why he was moved out and why he likely cannot return. The pt reports that he was close to his dad and was getting visits and is worried he'll be moved to another facility with more restrictions. The pt appears upset and unable to process how the course of his actions led to where he's at now. The pt will likely be at [facility] until his conservator finds placement for him. ASSESSMENT The patient was interviewed in observation room. The patient was actively walking hallway engaging with peers. The patient endorses "I am doing good." The patient endorses his sister and her came to visit him today and it was a "good" visit. The patient endorses no worsening mental health symptoms. Denies SI. Denies HI. Denies AVH. Patient endorses adequate sleep and food intake. The patient is stable no acute distress noted. The patient presents as calm, cooperative, and engaged during session. Per staff report patient is medication compliant. Per staff report no abnormal behaviors. Per staff report patient has been engaging with activities in peers. Will continue daily assessment and adjusting treatment as needed. Closely monitor behavior and response to medication during hospitalization. Results Of any Diagn. Testing REVIEW OF LABS WBC 8.0 RBC 4.55 HEMOGLOBIN 14.2 HEMATOCRIT 41.8 PLATELET [id number] SODIUM 143 POTASSIUM 4.2 CHLORIDE 104 ANION GAP 10 BUN 11 CREATININE 0.71 CALCIUM 8.8 ALBUMIN 3.8 TSH 0.78 LDL 71 HDL 50 TRIGLYCERIDES 111 URINE TOX SCREEN POSITIVE CANNABIS AND AMPHETAMINES URINALYSIS NEGATIVE Appearnace: Other (APPROPRIATE. AVERAGE HIGH AVERAGE WEIGHT MALE. WEARING STREET CLOTHING. SHORT DARK HAIR.) Speech: Other (CIRCUMSTANTIAL) Eye Contact: Other (INTERMITTENT) Motor Activity: Normal Affect: Full Mood: Euthymic Orientation Impairment: None Memory Impairment: None Attention: Normal Hallucinations: None Other: None Suicidality: None Homicidality: None Delusions: None Behavior: Cooperative Insight: Fair Judgment: Fair Treatment ABILIFY 30 MG P.O. DAILY PRAZOSIN 1 MG P.O. Q.H.S. SEROQUEL 550 MG P.O. Q.H.S. TRAZODONE 200 MG P.O. Q.H.S. SENNA 8.6 MG ONE TAB P.O. Q.H.S. ATIVAN 1 MG P.O. Q.6 PRN NEEDED FOR ANXIETY Monitoring by Staff, Milieu, Group, and Individual counseling as needed -- According to the [place] Suicide Assessment the above named patient is on Q15 MINUTE CHECKS. LPS CONSERVED Total time spent 40 minutes on REVIEW OF Clinical notes [X ] RN notes [X] PCT documentation [X] SW notes Labs [ X] Medications [X] Care trends/care activity [X] Vitals [X] DISCUSSION WITH metal bonding helper [X] Staff SW Treatment Team [X] Discharge UNSURE AT THIS TIME. PATIENT IS LPS CONSERVED AWAITING PLACEMENT. CODING VISIT-PSYCHIATRY Date of Service: Oct 31, 2024 Billing Provider: KARIS HALLMAN APRN Psych Common Visit Codes: 30365-UET/OBS DISCH DAY >30min Problem Qualifiers (1) Schizophrenia: Qualified Codes: F20.9 - Schizophrenia, unspecified KARIS HALLMAN APRN Oct 31, 2024 10:21
[2024-10-31 19:58] VITALS: RESP 16; O2SAT 99
[2024-10-31 20:00] VITALS: BP 114/57; PULSE 61; RESP 16; TEMP 98.2; O2SAT 99
[2024-11-01 07:00] VITALS: RESP 16; O2SAT 99
[2024-11-01 08:00] VITALS: BP 113/64; PULSE 81; RESP 16; TEMP 97.9; O2SAT 99
--- NOTE | 2024-11-01 09:57 | PROGRESS NOTE ---
Progress Note Dictate Providers to CC ~ Central Line/PICC still needed: N\A Antibiotic Ordered?: No MRSA Education MRSA Education Provided to pt: No Objective Vitals Vital Signs Date Time Temp Pulse Resp B/P (MAP) Pulse Ox O2 Delivery O2 Flow Rate FiO2 11/01/24 08:00 97.9 81 16 113/64 (80) 99 Room Air Counseling Services Smoking & Tobacco Cessation: > 10 Minutes Problem\Assessment\Plan Problems/Diagnosis: (1) Gravely disabled (2) Schizophrenia Psychiatrist's Progress Note Date of Service: Nov 01, 2024 Notes CHART REVIEW Pt is a 24-year-old single male who is currently conserved in [facility] and his conservator is Yocasta Karel. Pt was recently at [facility] and was discharged in May 2024 and had placement at [facility] in [place]. 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 The pt is now at [facility] awaiting new placement. The pt reports that he felt he was doing well at his most recent placement and doesn't understand why he was moved out and why he likely cannot return. The pt reports that he was close to his dad and was getting visits and is worried he'll be moved to another facility with more restrictions. The pt appears upset and unable to process how the course of his actions led to where he's at now. The pt will likely be at [facility] until his conservator finds placement for him. ASSESSMENT The patient was interviewed in observation room. The patient was actively standing in hallway. The patient endorses The patient endorses no worsening mental health symptoms. Denies SI. Denies HI. Denies AVH. Patient endorses adequate sleep and food intake. The patient is stable no acute distress noted. The patient presents as calm, cooperative, and engaged during session. Per staff report patient is medication compliant. Per staff report no abnormal behaviors. Per staff report patient has been engaging with activities in peers. Will continue daily assessment and adjusting treatment as needed. Closely monitor behavior and response to medication during hospitalization. Results Of any Diagn. Testing REVIEW OF LABS WBC 8.0 RBC 4.55 HEMOGLOBIN 14.2 HEMATOCRIT 41.8 PLATELET [id number] SODIUM 143 POTASSIUM 4.2 CHLORIDE 104 ANION GAP 10 BUN 11 CREATININE 0.71 CALCIUM 8.8 ALBUMIN 3.8 TSH 0.78 LDL 71 HDL 50 TRIGLYCERIDES 111 URINE TOX SCREEN POSITIVE CANNABIS AND AMPHETAMINES URINALYSIS NEGATIVE Appearnace: Other (APPROPRIATE. AVERAGE HIGH AVERAGE WEIGHT MALE. WEARING STREET CLOTHING. SHORT DARK HAIR) Speech: Other (CIRCUMSTANTIAL) Eye Contact: Normal Motor Activity: Normal Affect: Full Mood: Euthymic Orientation Impairment: None Memory Impairment: None Attention: Normal Hallucinations: None Other: None Suicidality: None Homicidality: None Delusions: None Behavior: Cooperative Insight: Fair Judgment: Fair Treatment ABILIFY 30 MG P.O. DAILY PRAZOSIN 1 MG P.O. Q.H.S. SEROQUEL 550 MG P.O. Q.H.S. TRAZODONE 200 MG P.O. Q.H.S. SENNA 8.6 MG ONE TAB P.O. Q.H.S. ATIVAN 1 MG P.O. Q.6 PRN NEEDED FOR ANXIETY Monitoring by Staff, Milieu, Group, and Individual counseling as needed -- According to the [place] Suicide Assessment the above named patient is on Q15 MINUTE CHECKS. LPS CONSERVED Total time spent 45 minutes on REVIEW OF Clinical notes [X ] RN notes [X] PCT documentation [X] SW notes Labs [ X] Medications [X] Care trends/care activity [X] Vitals [X] DISCUSSION WITH cloth finishing range back tender [X] Staff SW Treatment Team [X] Discharge UNSURE AT THIS TIME. PATIENT IS LPS CONSERVED AWAITING PLACEMENT. CODING VISIT-PSYCHIATRY Date of Service: Nov 01, 2024 Billing Provider: KARIS HALLMAN APRN Psych Common Visit Codes: [id number] INP/OBS CARE(Low) Problem Qualifiers (1) Schizophrenia: Qualified Codes: F20.9 - Schizophrenia, unspecified KARIS HALLMAN APRN Nov 01, 2024 09:57
--- NOTE | 2024-11-01 10:00 | PROGRESS NOTE ---
Progress Note Dictate Providers to CC ~ Central Line/PICC still needed: N\\A Antibiotic Ordered?: No MRSA Education MRSA Education Provided to pt: No Objective Vitals Vital Signs Date Time Temp Pulse Resp B/P (MAP) Pulse Ox O2 Delivery O2 Flow Rate FiO2 11/01/24 08:00 97.9 81 16 113/64 (80) 99 Room Air Problem\\Assessment\\Plan Problems/Diagnosis: (1) Gravely disabled (2) Schizophrenia Psychiatrist's Progress Note Date of Service: Nov 01, 2024 Notes CHART REVIEW Pt is a 24-year-old single male who is currently conserved in [facility] and his conservator is Yocasta Karel. Pt was recently at [facility] and was discharged in May 2024 and had placement at [facility] in [place]. 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 The pt is now at [facility] awaiting new placement. The pt reports that he felt he was doing well at his most recent placement and doesn't understand why he was moved out and why he likely cannot return. The pt reports that he was close to his dad and was getting visits and is worried he'll be moved to another facility with more restrictions. The pt appears upset and unable to process how the course of his actions led to where he's at now. The pt will likely be at [facility] until his conservator finds placement for him. ASSESSMENT The patient was interviewed in observation room. The patient was actively walking hallway engaging with peers. The patient endorses "Good." The pateint divina gonzales he has been trying to get hold of his conservetor to see if she has found him placement yet. "I am just a little worried I will be here for while and I just want to be out to see my family." The patient endorses no worsening mental health symptoms. Denies SI. Denies HI. Denies AVH. Patient endorses adequate sleep and food intake. The patient is stable no acute distress noted. The patient presents as calm, cooperative, and engaged during session. Per staff report patient is medication compliant. Per staff report no abnormal behaviors. Per staff report patient has been engaging with activities in peers. Will continue daily assessment and adjusting treatment as needed. Closely monitor behavior and response to medication during hospitalization. Results Of any Diagn. Testing REVIEW OF LABS WBC 8.0 RBC 4.55 HEMOGLOBIN 14.2 HEMATOCRIT 41.8 PLATELET [id number] SODIUM 143 POTASSIUM 4.2 CHLORIDE 104 ANION GAP 10 BUN 11 CREATININE 0.71 CALCIUM 8.8 ALBUMIN 3.8 TSH 0.78 LDL 71 HDL 50 TRIGLYCERIDES 111 URINE TOX SCREEN POSITIVE CANNABIS AND AMPHETAMINES URINALYSIS NEGATIVE Appearnace: Other (APPROPRIATE. AVERAGE HIGH AVERAGE WEIGHT MALE.WEARING STREET CLOTHING.SHORT DARK HAIR) Speech: Other Eye Contact: Normal Motor Activity: Normal Affect: Full Mood: Euthymic Orientation Impairment: None Memory Impairment: None Attention: Normal Hallucinations: None Other: None Suicidality: None Homicidality: None Delusions: None Behavior: Cooperative Insight: Fair Judgment: Fair Treatment ABILIFY 30 MG P.O. DAILY PRAZOSIN 1 MG P.O. Q.H.S. SEROQUEL 550 MG P.O. Q.H.S. TRAZODONE 200 MG P.O. Q.H.S. SENNA 8.6 MG ONE TAB P.O. Q.H.S. ATIVAN 1 MG P.O. Q.6 PRN NEEDED FOR ANXIETY Monitoring by Staff, Milieu, Group, and Individual counseling as needed -- According to the [place] Suicide Assessment the above named patient is on Q15 MINUTE CHECKS. LPS CONSERVED Total time spent 45 minutes on REVIEW OF Clinical notes [X ] RN notes [X] PCT documentation [X] SW notes Labs [ X] Medications [X] Care trends/care activity [X] Vitals [X] DISCUSSION WITH jute bag sewer [X] Staff SW Treatment Team [X] Discharge UNSURE AT THIS TIME. PATIENT IS LPS CONSERVED AWAITING PLACEMENT. CODING VISIT-PSYCHIATRY Date of Service: Nov 01, 2024 Billing Provider: KARIS HALLMAN APRN Psych Common Visit Codes: [id number] INP/OBS CARE(Low) Problem Qualifiers (1) Schizophrenia: Qualified Codes: F20.9 - Schizophrenia, unspecified KARIS HALLMAN APRN Nov 01, 2024 10:00
--- NOTE | 2024-11-01 18:54 | PROGRESS NOTE- Residence ---
Progress Note - Resident Providers to CC Resident Creating Document: OLY SIN RES ~ Antibiotic Timeout Antibiotic Ordered?: No Subjective Patient was seen at the [facility] this afternoon, complained about the pain and needle sensation over half of his left arm shooting from the left wrist he attributed from the previous scar is the cause of that abnormal sensation. He did have a injury and a broken and dislocated right wrist on slip and for from skateboarding last more than two years ago and complained about the deformity of his right thumb could not thumbs up and curvature and permanent flexion of the right index finger. Objective Vital Signs Date Time Temp Pulse Resp B/P (MAP) Pulse Ox O2 Delivery O2 Flow Rate FiO2 11/01/24 08:00 97.9 81 16 113/64 (80) 99 Room Air Vitals were stable at the moment. On exam, General: Well alert, well oriented, not confused, not agitated, not in acute distress, well cooperated during the physical. HEENT: Conjunctive are pink, sclerae clear, no icterus, pupil is equal in both sides, reactive to light, no ear discharge, no pharyngeal erythema or an edema, mouth and lips are moist. Neck: Supple, no JVD, no lymphadenopathy and thyromegaly. Lungs:Equal air entry on both lungs, no additional sounds Heart: S1-S2 regular sinus rhythm and, regular rate, no gallops, no rubs, no murmurs Abdomen: No visible peristalsis, Bowel sounds present on auscultation, soft, nontender, no guarding, no rigidity Extremities: Right thumb could not thumbs up info degree up to 90 degree, right index finger flexion, left wrist per minute scars, No obvious deformities, no pitting edema bilaterally, capillary refill intact, able to wiggle toes both sides, peripheral pulsations are intact on both sides METAL INSPECTOR: No focal neurological deficits, no motor and sensory weakness in all 4 extremities, could move all 4 extremities Musculoskeletal: No joint swelling, deformities, inflammations, and no scoliosis and back tenderness Skin: No active skin lesions and rashes Assessment Assessment A 24-year-old single male who was transferred from [place] for behavior r ehabilitation for his behavior issues and substance abuse history while his conservatory find a new placement for him. Plan Plan Schizophrenia Management as per Psychiatry. Substance use history Urine toxicology screen positive for cannabinoids and methamphetamines. Management as per Psychiatry. Substance use navigator and environmental services lead. Abnormal deformities and pin and needle abnormal sensation over the left thumb -recommended to wear a wrist and thumb stabilizer -recommended to follow up with PCP fro the regular physical therapy session for the deformities -will consider to add PO Gabapentin low dose 50 or 75 mg at night time once daily as needed if the abnormal sensation are persistent and if Psych meds allow for the non drug to drug interaction Labs reviewed. The patient does not have any other past or present medical conditions. Disposition: Hospitalist team will follow the patient during hospitalization, you are welcome to questions and medical consultation, appreciate for letting us involved in patient's care. Resident MD attestation: Patient was seen, examined and discussed with attending MD, Dr. Khadar SIN MD Internal Medicine Resident, PGY2 [facility] Date of Service: Nov 01, 2024 Billing Provider: JOY NOLASCO MD Common Visit Codes: [id number] INP/OBS CARE(MOD) OLY SIN, RES Nov 01, 2024 18:54 JOY NOLASCO MD Dec 11, 2024 14:35
[2024-11-01 19:00] VITALS: RESP 16; O2SAT 97
[2024-11-01 20:00] VITALS: BP 115/60; PULSE 65; RESP 16; TEMP 98; O2SAT 97
[2024-11-02 07:30] VITALS: BP 104/55; PULSE 70; RESP 16; TEMP 98.3; O2SAT 99
--- NOTE | 2024-11-02 13:25 | PROGRESS NOTE ---
Progress Note Dictate Providers to CC ~ Central Line/PICC still needed: N\\A Antibiotic Ordered?: No MRSA Education MRSA Education Provided to pt: No Objective Vitals Vital Signs Date Time Temp Pulse Resp B/P (MAP) Pulse Ox O2 Delivery O2 Flow Rate FiO2 11/02/24 07:30 98.3 70 16 104/55 (71) 99 Room Air Problem\\Assessment\\Plan Problems/Diagnosis: (1) Gravely disabled (2) Schizophrenia Psychiatrist's Progress Note Date of Service: Nov 02, 2024 Notes CHART REVIEW Pt is a 24-year-old single male who is currently conserved in [facility] and his conservator is Yocasta Vinson. Pt was recently at [facility] and was discharged in May 2024 and had placement at [facility] in [place]. 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 The pt is now at [facility] awaiting new placement. The pt reports that he felt he was doing well at his most recent placement and doesn't understand why he was moved out and why he likely cannot return. The pt reports that he was close to his dad and was getting visits and is worried he'll be moved to another facility with more restrictions. The pt appears upset and unable to process how the course of his actions led to where he's at now. The pt will likely be at [facility] until his conservator finds placement for him. ASSESSMENT The patient was interviewed in observation room. The patient was actively standing in hallway. The patient endorses "I'm doing Good." "I am bored out of my mind, though." "I didn't sleep good last because I was having nightmares." .Denies SI. Denies HI. Denies AVH. Patient endorses adequate food intake. The patient is stable no acute distress noted. The patient presents as calm, cooperative, and engaged during session. Per staff report patient is medication compliant. Per staff report no abnormal behaviors. Per staff report patient has been engaging with activities in peers. Will continue daily assessment and adjusting treatment as needed. Closely monitor behavior and response to medication during hospitalization. Results Of any Diagn. Testing REVIEW OF LABS WBC 8.0 RBC 4.55 HEMOGLOBIN 14.2 HEMATOCRIT 41.8 PLATELET [id number] SODIUM 143 POTASSIUM 4.2 CHLORIDE 104 ANION GAP 10 BUN 11 CREATININE 0.71 CALCIUM 8.8 ALBUMIN 3.8 TSH 0.78 LDL 71 HDL 50 TRIGLYCERIDES 111 URINE TOX SCREEN POSITIVE CANNABIS AND AMPHETAMINES URINALYSIS NEGATIVE Appearnace: Other (APPROPRIATE. AVERAGE HIGH AVERAGE WEIGHT MALE.WEARING STREET CLOTHING.SHORT DARK HAIR) Speech: Other (CIRCUMSTANTIAL) Eye Contact: Normal Motor Activity: Normal Affect: Constricted Orientation Impairment: None Memory Impairment: None Attention: Normal Hallucinations: None Other: None Suicidality: None Homicidality: None Delusions: None Behavior: Cooperative Insight: Fair Judgment: Fair Treatment ABILIFY 30 MG P.O. DAILY Increase PRAZOSIN 2 MG P.O. Q.H.S. SEROQUEL 550 MG P.O. Q.H.S. TRAZODONE 200 MG P.O. Q.H.S. SENNA 8.6 MG ONE TAB P.O. Q.H.S. ATIVAN 1 MG P.O. Q.6 PRN NEEDED FOR ANXIETY Monitoring by Staff, Milieu, Group, and Individual counseling as needed -- According to the [place] Suicide Assessment the above named patient is on Q15 MINUTE CHECKS. LPS CONSERVED Total time spent 35 minutes on REVIEW OF Clinical notes [X ] RN notes [X] PCT documentation [X] SW notes Labs [ X] Medications [X] Care trends/care activity [X] Vitals [X] DISCUSSION WITH credit investigator [X] Staff SW Treatment Team [X] Discharge UNSURE AT THIS TIME. PATIENT IS LPS CONSERVED AWAITING PLACEMENT. CODING VISIT-PSYCHIATRY Date of Service: Nov 02, 2024 Billing Provider: KARIS HALLMAN APRN Psych Common Visit Codes: [id number] INP/OBS CARE(Low) Problem Qualifiers (1) Schizophrenia: Qualified Codes: F20.9 - Schizophrenia, unspecified KARIS HALLMAN APRN Nov 02, 2024 13:25
[2024-11-02 19:55] VITALS: BP 114/72; PULSE 83; RESP 18; TEMP 98.8; O2SAT 97
[2024-11-02 20:50] VITALS: RESP 18; O2SAT 97
[2024-11-03 07:30] VITALS: BP 109/44; PULSE 59; RESP 16; TEMP 97.3; O2SAT 98
--- NOTE | 2024-11-03 09:57 | PROGRESS NOTE ---
Progress Note Dictate Providers to CC ~ Central Line/PICC still needed: N\\A Antibiotic Ordered?: No MRSA Education MRSA Education Provided to pt: No Objective Vitals Vital Signs Date Time Temp Pulse Resp B/P (MAP) Pulse Ox O2 Delivery O2 Flow Rate FiO2 11/02/24 20:50 18 97 11/02/24 19:55 98.8 83 114/72 (86) Room Air Counseling Services Smoking & Tobacco Cessation: > 10 Minutes Problem\\Assessment\\Plan Problems/Diagnosis: (1) Gravely disabled (2) Schizophrenia Psychiatrist's Progress Note Date of Service: Nov 03, 2024 Notes CHART REVIEW Pt is a 24-year-old single male who is currently conserved in [facility] and his conservator is Yocasta Vinson. Pt was recently at [facility] and was discharged in May 2024 and had placement at [facility] in [place]. 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 The pt is now at [facility] awaiting new placement. The pt reports that he felt he was doing well at his most recent placement and doesn't understand why he was moved out and why he likely cannot return. The pt reports that he was close to his dad and was getting visits and is worried he'll be moved to another facility with more restrictions. The pt appears upset and unable to process how the course of his actions led to where he's at now. The pt will likely be at [facility] until his conservator finds placement for him. ASSESSMENT The patient was interviewed in observation room. The patient was actively walking in hallway. The patient endorses "Good." "I slept pretty good last night, no nightmares." The patient endorses no worsening mental health symptoms. Denies SI. Denies HI. Denies AVH. Patient endorses adequate food intake. The patient is stable no acute distress noted. The patient presents as calm, cooperative, and engaged during session. Per staff report patient is medication compliant. Per staff report no abnormal behaviors. Per staff report patient has been engaging with activities in peers. Will continue daily assessment and adjusting treatment as needed. Closely monitor behavior and response to medication during hospitalization. Results Of any Diagn. Testing REVIEW OF LABS WBC 8.0 RBC 4.55 HEMOGLOBIN 14.2 HEMATOCRIT 41.8 PLATELET [id number] SODIUM 143 POTASSIUM 4.2 CHLORIDE 104 ANION GAP 10 BUN 11 CREATININE 0.71 CALCIUM 8.8 ALBUMIN 3.8 TSH 0.78 LDL 71 HDL 50 TRIGLYCERIDES 111 URINE TOX SCREEN POSITIVE CANNABIS AND AMPHETAMINES URINALYSIS NEGATIVE Appearnace: Other (APPROPRIATE. AVERAGE HIGH AVERAGE WEIGHT MALE.WEARING STREET CLOTHING.SHORT DARK HAIR) Speech: Normal Eye Contact: Normal Motor Activity: Normal Affect: Full Mood: Euthymic Orientation Impairment: None Memory Impairment: None Attention: Normal Hallucinations: None Other: None Suicidality: None Homicidality: None Delusions: None Behavior: Cooperative Insight: Fair Judgment: Fair, Poor Treatment ABILIFY 30 MG P.O. DAILY PRAZOSIN 2 MG P.O. Q.H.S. SEROQUEL 550 MG P.O. Q.H.S. TRAZODONE 200 MG P.O. Q.H.S. SENNA 8.6 MG ONE TAB P.O. Q.H.S. ATIVAN 1 MG P.O. Q.6 PRN NEEDED FOR ANXIETY Monitoring by Staff, Milieu, Group, and Individual counseling as needed -- According to the [place] Suicide Assessment the above named patient is on Q15 MINUTE CHECKS. LPS CONSERVED Total time spent 45 minutes on REVIEW OF Clinical notes [X ] RN notes [X] PCT documentation [X] SW notes Labs [ X] Medications [X] Care trends/care activity [X] Vitals [X] DISCUSSION WITH cow rider [X] Staff SW Treatment Team [X] Discharge UNSURE AT THIS TIME. PATIENT IS LPS CONSERVED AWAITING PLACEMENT. CODING VISIT-PSYCHIATRY Date of Service: Nov 03, 2024 Billing Provider: KARIS HALLMAN APRN Psych Common Visit Codes: [id number] INP/OBS CARE(Low) Problem Qualifiers (1) Schizophrenia: Qualified Codes: F20.9 - Schizophrenia, unspecified KARIS HALLMAN APRN Nov 03, 2024 09:57
--- NOTE | 2024-11-03 19:13 | PROGRESS NOTE- Residence ---
Progress Note - Resident Providers to CC Resident Creating Document: OLY SIN RES ~ Antibiotic Timeout Antibiotic Ordered?: Yes Subjective Patient has the same complaint for pain and needles sensation over the half of left thumb and complained that he is not still having any wrist stabilizing wear. Objective Vital Signs Date Time Temp Pulse Resp B/P (MAP) Pulse Ox O2 Delivery O2 Flow Rate FiO2 11/03/24 07:30 16 98 Room Air 11/03/24 07:30 97.3 59 109/44 (65) Vitals were stable at the moment. On exam, General: Well alert, well oriented, not confused, not agitated, not in acute distress, well cooperated during the physical. HEENT: Conjunctive are pink, sclerae clear, no icterus, pupil is equal in both sides, reactive to light, no ear discharge, no pharyngeal erythema or an edema, mouth and lips are moist. Neck: Supple, no JVD, no lymphadenopathy and thyromegaly. Lungs:Equal air entry on both lungs, no additional sounds Heart: S1-S2 regular sinus rhythm and, regular rate, no gallops, no rubs, no murmurs Abdomen: No visible peristalsis, Bowel sounds present on auscultation, soft, nontender, no guarding, no rigidity Extremities: Right thumb could not thumbs up info degree up to 90 degree, right index finger flexion, left wrist per minute scars, No obvious deformities, no pitting edema bilaterally, capillary refill intact, able to wiggle toes both sides, peripheral pulsations are intact on both sides BOOKMOBILE DRIVER: No focal neurological deficits, no motor and sensory weakness in all 4 extremities, could move all 4 extremities Musculoskeletal: No joint swelling, deformities, inflammations, and no scoliosis and back tenderness Skin: No active skin lesions and rashes Assessment Assessment A 24-year-old single male who was transferred from [place] for behavior rehabilitation for his behavior issues and substance abuse history while his conservatory find a new placement for him. Plan Plan Schizophrenia Management as per Psychiatry. Substance use history Urine toxicology screen positive for cannabinoids and methamphetamines. Management as per Psychiatry. Substance use navigator and director of social work. Abnormal deformities and pin and needle abnormal sensation over the left thumb -recommended to wear a wrist and thumb stabilizer, ordered miscellaneous nursing order to prescribe a wrist stabilizing wear -recommended to follow up with PCP fro the regular physical therapy session for the deformities -will consider to add PO Gabapentin low dose 50 or 75 mg at night time once daily as needed if the abnormal sensation are persistent and if Psych meds allow for the non drug to drug interaction Labs reviewed. The patient does not have any other past or present medical conditions. Disposition: Hospitalist team will follow the patient during hospitalization, you are welcome to questions and medical consultation, appreciate for letting us involved in patient's care. Resident MD attestation: Patient was seen, examined and discussed with attending MD, Dr. Khadar SIN MD Internal Medicine Resident, PGY2 [facility] Date of Service: Nov 03, 2024 Billing Provider: JOY NOLASCO MD Common Visit Codes: [id number] INP/OBS CARE(MOD) OLY SIN, RES Nov 03, 2024 19:13 JOY NOLASCO MD Dec 11, 2024 14:35
[2024-11-03 19:43] VITALS: BP 129/74; PULSE 70; RESP 18; TEMP 97.7; O2SAT 97
[2024-11-03 19:44] VITALS: RESP 18; O2SAT 97
[2024-11-04 07:30] VITALS: BP 107/62; PULSE 78; RESP 18; TEMP 96.6; O2SAT 98
[2024-11-04 11:18] VITALS: BP 104/62; PULSE 78; RESP 18; TEMP 96.6; O2SAT 98
[2024-11-04 11:22] VITALS: RESP 18; O2SAT 98
--- NOTE | 2024-11-04 12:22 | PROGRESS NOTE ---
Progress Note Dictate Providers to CC ~ Central Line/PICC still needed: N\A Antibiotic Ordered?: No Objective Vitals Vital Signs Date Time Temp Pulse Resp B/P (MAP) Pulse Ox O2 Delivery O2 Flow Rate FiO2 11/04/24 11:22 18 98 Room Air 11/04/24 11:18 96.6 78 104/62 (76) Problem\Assessment\Plan Problems/Diagnosis: (1) Schizophrenia (2) Gravely disabled Psychiatrist's Progress Note Date of Service: Nov 04, 2024 Notes Temo Cook is a 24-year-old single male who is currently conserved in [facility] and his conservator is Yocasta Vinson. Pt was recently at [facility] and was discharged in May 2024 and had placement at [facility] in [place]. 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 The pt is now at [facility] awaiting new placement. The pt reports that he felt he was doing well at his most recent placement and doesn't understand why he was moved out and why he likely cannot return. The pt reports that he was close to his dad and was getting visits and is worried he'll be moved to another facility with more restrictions. The pt appears upset and unable to process how the course of his actions led to where he's at now. The pt will likely be at [facility] until his conservator finds placement for him. Patient is of normal height and weight. He has shaved head. Some acne. Some facial hair. Right guaged ear lobe. He is wearing street clothes. Feeling a bit depressed. No sleep at all. A lot of nightmares. Horrible nightmare and didn't want to sleep after that. 'brother went missing... wandering in dream and panicking.' When woke up feeling panic. Knows in reality he is okay. Denies AH/VH. No Paranoid thinking. Last BM today. Mental Status Eye contact: Fair; Behavior: Cooperative. Speech: Regular Mood: 'I'm okay' Affect: Constricted. Thought process: No disorganization, Minimal speech. Denies Paranoid Delusions. Thought Content: immediate needs/medications. Cognition: A&O X4; Insight: Seems to be improved. He is more insightful. Even asking if his dreams were d/t his psychosis or possibly trauma? Judgment: Poor and impulsive; SI Denies/HI Denies, AH Denies/VH Denies Results Of any Diagn. Testing REVIEW OF LABS WBC 8.0 RBC 4.55 HEMOGLOBIN 14.2 HEMATOCRIT 41.8 PLATELET [id number] SODIUM 143 POTASSIUM 4.2 CHLORIDE 104 ANION GAP 10 BUN 11 CREATININE 0.71 CALCIUM 8.8 ALBUMIN 3.8 TSH 0.78 LDL 71 HDL 50 TRIGLYCERIDES 111 URINE TOX SCREEN POSITIVE CANNABIS AND AMPHETAMINES URINALYSIS NEGATIVE Treatment Too hypotensive to keep increasing Prazosin - Prazosin can actually cause nightmares in some people. Will d/c. Try adding a low dose Remeron to help with his depressive sx and sleep. d/c PRAZOSIN 2 MG P.O. Q.H.S. Remeron 15mg one po hs. ABILIFY 30 MG P.O. DAILY SEROQUEL 550 MG P.O. Q.H.S. TRAZODONE 200 MG P.O. Q.H.S. SENNA 8.6 MG ONE TAB P.O. Q.H.S. ATIVAN 1 MG P.O. Q.6 PRN NEEDED FOR ANXIETY Monitoring by Staff, Milieu, Group, and Individual counseling as needed -- A ccording to the [place] Suicide Assessment the above named patient is on Q15 MINUTE CHECKS. LPS CONSERVED Discharge UNSURE AT THIS TIME. PATIENT IS LPS CONSERVED AWAITING PLACEMENT. REVIEW OF Clinical notes [X ] RN notes [X] PCT documentation [X] SW notes [X] Labs [ X] Medications [X] Care trends/care activity [X] Vitals [X] DISCUSSION WITH construction crew member [X] CODING VISIT-PSYCHIATRY Date of Service: Nov 04, 2024 Billing Provider: HARRY HALL Psych Common Visit Codes: [id number] INP/OBS CARE(Mod) Problem Qualifiers (1) Schizophrenia: Qualified Codes: F20.9 - Schizophrenia, unspecified HARRY HALL Nov 04, 2024 12:22
[2024-11-04 19:46] VITALS: BP 126/64; PULSE 77; RESP 17; TEMP 98.1; O2SAT 96
[2024-11-04 19:48] VITALS: RESP 17; O2SAT 96
[2024-11-05 07:00] VITALS: BP 113/64; PULSE 98; RESP 16; TEMP 97.2; O2SAT 95
--- NOTE | 2024-11-05 16:03 | PROGRESS NOTE ---
Daily Progress Note Providers to CC ~ Antibiotic Timeout Antibiotic Ordered?: No Subjective patient looks Comfortable denies any concerns ambulating well passed stools, no other new concerns Objective Vital Signs Date Time Temp Pulse Resp B/P (MAP) Pulse Ox O2 Delivery O2 Flow Rate FiO2 11/05/24 07:00 16 95 Room Air 11/05/24 07:00 97.2 98 113/64 (80) General-patient not in any acute distress, awake , age-appropriate, looks comfortable HEENT-atraumatic normocephalic, neck supple without elevated JVD, No lymphadenopathy bilaterally. Eyes-no icterus or pallor seen in eyes Chest-clear to auscultation bilaterally, breathing nonlabored no tachypnea, no wheezing, no crepitation, no crackles. Heart-S1-S2 normal, regular heart rate no murmur Abdomen bowel sounds positive on auscultation, soft nondistended nontender no guarding, no rigidity Skin no active skin rash Neurology-grossly intact, nonfocal alert awake oriented Extremity- no pedal edema able to move all 4 extremities Psychiatry - patient is not confused or agitated cooperated during physical examination Problem\Assessment\Plan Schizophrenia Management as per Psychiatry. Substance use history Urine toxicology screen positive for cannabinoids and methamphetamines. Management as per Psychiatry. Substance use navigator and professor of social work. Labs reviewed. The patient does not have any other past or present medical conditions. Disposition: Hospitalist team will continue to follow the patient during the course of his hospital stay. Date of Service: Nov 05, 2024 Billing Provider: ALBARO BARNETT MD Common Visit Codes: [id number] INP/OBS CARE(LOW) ALBARO BARNETT MD Nov 05, 2024 16:03
--- NOTE | 2024-11-05 17:36 | PROGRESS NOTE ---
Progress Note Dictate Providers to CC ~ Central Line/PICC still needed: N\A Antibiotic Ordered?: No Objective Vitals Vital Signs Date Time Temp Pulse Resp B/P (MAP) Pulse Ox O2 Delivery O2 Flow Rate FiO2 11/05/24 07:00 16 95 Room Air 11/05/24 07:00 97.2 98 113/64 (80) Problem\Assessment\Plan Problems/Diagnosis: (1) Schizophrenia (2) Gravely disabled Psychiatrist's Progress Note Date of Service: Nov 05, 2024 Notes Temo Cook is a 24-year-old single male who is currently conserved in [facility] and his conservator is Yocasta Visnon. Pt was recently at [facility] and was discharged in May 2024 and had placement at [facility] in [place]. 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 The pt is now at [facility] awaiting new placement. The pt reports that he felt he was doing well at his most recent placement and doesn't understand why he was moved out and why he likely cannot return. The pt reports that he was close to his dad and was getting visits and is worried he'll be moved to another facility with more restrictions. The pt appears upset and unable to process how the course of his actions led to where he's at now. The pt will likely be at [facility] until his conservator finds placement for him. Patient is of normal height and weight. He has shaved head. Some acne. Some facial hair. Right guaged ear lobe. He is wearing street clothes. Didn't sleep well. Still having nightmares. 'Scary shit.' Wake him up and can't go back to sleep take anxiety med and go back to sleep. No AH/VH. Not Paranoid thinking. A little of sadness. Because of a bunch of things. Naturally feels like he's in a bad mood and 'too nice' and easily lead into bad things. 'been working on that.' learning to set boundaries. He still hasn't been able to get his teeth taking care of. Mental Status Eye contact: Fair; Behavior: Cooperative. Speech: Regular Mood: 'I'm okay' Affect: Constricted. Thought process: No disorganization, Minimal speech. Denies Paranoid Delusions. Thought Content: immediate needs/medications. Cognition: A&O X4; Insight: Seems to be improved. He is more insightful. Even asking if his dreams were d/t his psychosis or possibly trauma? Judgment: Poor and impulsive; SI Denies/HI Denies, AH Denies/VH Denies Results Of any Diagn. Testing REVIEW OF LABS WBC 8.0 RBC 4.55 HEMOGLOBIN 14.2 HEMATOCRIT 41.8 PLATELET [id number] SODIUM 143 POTASSIUM 4.2 CHLORIDE 104 ANION GAP 10 BUN 11 CREATININE 0.71 CALCIUM 8.8 ALBUMIN 3.8 TSH 0.78 LDL 71 HDL 50 TRIGLYCERIDES 111 URINE TOX SCREEN POSITIVE CANNABIS AND AMPHETAMINES URINALYSIS NEGATIVE Treatment INCREASE Remeron to help with his depressive sx and sleep. d/c PRAZOSIN 2 MG P.O. Q.H.S. INCREASE Remeron 30mg one po hs. ABILIFY 30 MG P.O. DAILY SEROQUEL 550 MG P.O. Q.H.S. TRAZODONE 200 MG P.O. Q.H.S. SENNA 8.6 MG ONE TAB P.O. Q.H.S. ATIVAN 1 MG P.O. Q.6 PRN NEEDED FOR ANXIETY Monitoring by Staff, Milieu, Group, and Individual counseling as needed -- According to the [place] Suicide Assessment the above named patient is on Q15 MINUTE CHECKS. LPS CONSERVED Discharge UNSURE AT THIS TIME. PATIENT IS LPS CONSERVED AWAITING PLACEMENT. REVIEW OF Clinical notes [X ] RN notes [X] PCT documentation [X] SW notes [X] Labs [ X] Medications [X] Care trends/care activity [X] Vitals [X] DISCUSSION WITH recruiting coordinator [X] CODING VISIT-PSYCHIATRY Date of Service: Nov 05, 2024 Billing Provider: HARRY HALL Psych Common Visit Codes: [id number] INP/OBS CARE(Mod) Problem Qualifiers (1) Schizophrenia: Qualified Codes: F20.9 - Schizophrenia, unspecified HARRY HALL Nov 05, 2024 17:35
[2024-11-05 19:41] VITALS: RESP 16; O2SAT 99
[2024-11-05 20:10] VITALS: BP 126/73; PULSE 85; RESP 16; TEMP 97.8; O2SAT 99
[2024-11-06 07:00] VITALS: RESP 15; O2SAT 97
[2024-11-06 08:00] VITALS: BP 113/50; PULSE 56; RESP 15; TEMP 98; O2SAT 97
--- NOTE | 2024-11-06 09:44 | PROGRESS NOTE ---
Progress Note Dictate Providers to CC ~ Central Line/PICC still needed: N\\A Antibiotic Ordered?: No MRSA Education MRSA Education Provided to pt: No Objective Vitals Vital Signs Date Time Temp Pulse Resp B/P (MAP) Pulse Ox O2 Delivery O2 Flow Rate FiO2 11/05/24 20:10 97.8 85 16 126/73 (90) 99 11/05/24 19:41 Room Air Counseling Services Smoking & Tobacco Cessation: > 10 Minutes Problem\\Assessment\\Plan Problems/Diagnosis: (1) Gravely disabled (2) Schizophrenia Psychiatrist's Progress Note Date of Service: Nov 06, 2024 Notes CHART REVIEW Pt is a 24-year-old single male who is currently conserved in [facility] and his conservator is Yocasta Vinson. Pt was recently at [facility] and was discharged in May 2024 and had placement at [facility] in [place]. 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 The pt is now at [facility] awaiting new placement. The pt reports that he felt he was doing well at his most recent placement and doesn't understand why he was moved out and why he likely cannot return. The pt reports that he was close to his dad and was getting visits and is worried he'll be moved to another facility with more restrictions. The pt appears upset and unable to process how the course of his actions led to where he's at now. The pt will likely be at [facility] until his conservator finds placement for him. ASSESSMENT The patient was interviewed in observation room. The patient was actively walking in hallway. The patient endorses "I am doing okay." "I slept really good with the higher dose of my Remeron." The patient endorses no worsening mental health symptoms. Denies SI. Denies HI. Denies AVH. Patient endorses adequate food intake food intake. The patient is stable no acute distress noted. The patient presents as calm, cooperative, and engaged during session. Per staff report patient is medication compliant. Per staff report no abnormal behaviors. Per staff report patient has been engaging with activities in peers. Will continue daily assessment and adjusting treatment as needed. Closely monitor behavior and response to medication during hospitalization. Results Of any Diagn. Testing REVIEW OF LABS WBC 8.0 RBC 4.55 HEMOGLOBIN 14.2 HEMATOCRIT 41.8 PLATELET [id number] SODIUM 143 POTASSIUM 4.2 CHLORIDE 104 ANION GAP 10 BUN 11 CREATININE 0.71 CALCIUM 8.8 ALBUMIN 3.8 TSH 0.78 LDL 71 HDL 50 TRIGLYCERIDES 111 URINE TOX SCREEN POSITIVE CANNABIS AND AMPHETAMINES URINALYSIS NEGATIVE Appearnace: Other (APPROPRIATE. AVERAGE HIGH AVERAGE WEIGHT MALE.WEARING STREET CLOTHING.BALD) Speech: Other (SABRA) Eye Contact: Normal Motor Activity: Normal Affect: Full Orientation Impairment: None Memory Impairment: None Attention: Normal Hallucinations: None Other: None Suicidality: None Homicidality: None Delusions: None Behavior: Cooperative Insight: Fair Judgment: Fair, Poor Treatment ABILIFY 30 MG P.O. DAILY SEROQUEL 550 MG P.O. Q.H.S. TRAZODONE 200 MG P.O. Q.H.S. SENNA 8.6 MG ONE TAB P.O. Q.H.S. ATIVAN 1 MG P.O. Q.6 PRN NEEDED FOR ANXIETY Monitoring by Staff, Milieu, Group, and Individual counseling as needed -- According to the [place] Suicide Assessment the above named patient is on Q15 MINUTE CHECKS. LPS CONSERVED Total time spent 45 minutes on REVIEW OF Clinical notes [X ] RN notes [X] PCT documentation [X] SW notes Labs [ X] Medications [X] Care trends/care activity [X] Vitals [X] DISCUSSION WITH bench assembler electrical [X] Staff SW Treatment Team [X] Discharge UNSURE AT THIS TIME. PATIENT IS LPS CONSERVED AWAITING PLACEMENT. CODING VISIT-PSYCHIATRY Date of Service: Nov 06, 2024 Billing Provider: KARIS HALLMAN APRN Psych Common Visit Codes: [id number] INP/OBS CARE(Mod) Problem Qualifiers (1) Schizophrenia: Qualified Codes: F20.9 - Schizophrenia, unspecified KARIS HALLMAN APRN Nov 06, 2024 09:44
[2024-11-06 16:52] LABS: URINE AMPHETAMINE SCREEN NEGATIVE (Neg); URINE BARBITUATE SCREEN NEGATIVE (Neg); URINE BENZODIAZEPINES SCREEN NEGATIVE (Neg); URINE CANNABINOID SCREEN NEGATIVE (Neg); URINE COCAINE SCREEN NEGATIVE (Neg); URINE METHADONE SCREEN NEGATIVE (Neg); URINE OPIATE SCREEN NEGATIVE (Neg); URINE PHENCYCLIDINE SCREEN NEGATIVE (Neg)
[2024-11-06 19:00] VITALS: RESP 16; O2SAT 96
[2024-11-06 20:00] VITALS: BP 116/56; PULSE 60; RESP 18; TEMP 98; O2SAT 97
[2024-11-07 07:43] VITALS: RESP 12; O2SAT 99
[2024-11-07 08:35] VITALS: BP 89/59; PULSE 65; RESP 12; TEMP 98.2; O2SAT 99
--- NOTE | 2024-11-07 13:53 | PROGRESS NOTE ---
Progress Note Dictate Providers to CC ~ Central Line/PICC still needed: N\\A Antibiotic Ordered?: No MRSA Education MRSA Education Provided to pt: No Objective Vitals Vital Signs Date Time Temp Pulse Resp B/P (MAP) Pulse Ox O2 Delivery O2 Flow Rate FiO2 11/07/24 08:35 98.2 65 12 89/59 (69) 99 Room Air Problem\\Assessment\\Plan Problems/Diagnosis: (1) Gravely disabled (2) Schizophrenia Psychiatrist's Progress Note Date of Service: Nov 07, 2024 Notes CHART REVIEW Pt is a 24-year-old single male who is currently conserved in [facility] and his conservator is Yocasta Karel. Pt was recently at [facility] and was discharged in May 2024 and had placement at [facility] in [place]. 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 The pt is now at [facility] awaiting new placement. The pt reports that he felt he was doing well at his most recent placement and doesn't understand why he was moved out and why he likely cannot return. The pt reports that he was close to his dad and was getting visits and is worried he'll be moved to another facility with more restrictions. The pt appears upset and unable to process how the course of his actions led to where he's at now. The pt will likely be at [facility] until his conservator finds placement for him. ASSESSMENT The patient was interviewed in observation room. The patient was actively sitting in rec room engaging with peers. The patient endorses "doing good." The patient endorses no worsening mental health symptoms. Denies SI. Denies HI. Denies AVH. Patient endorses adequate food intake food intake. The patient is stable no acute distress noted. The patient presents as calm, cooperative, and engaged during session. Per staff report patient is medication compliant. Per staff report no abnormal behaviors. Per staff report patient has been engaging with activities in peers. Will continue daily assessment and adjusting treatment as needed. Closely monitor behavior and response to medication during hospitalization. Results Of any Diagn. Testing REVIEW OF LABS WBC 8.0 RBC 4.55 HEMOGLOBIN 14.2 HEMATOCRIT 41.8 PLATELET [id number] SODIUM 143 POTASSIUM 4.2 CHLORIDE 104 ANION GAP 10 BUN 11 CREATININE 0.71 CALCIUM 8.8 ALBUMIN 3.8 TSH 0.78 LDL 71 HDL 50 TRIGLYCERIDES 111 URINE TOX SCREEN POSITIVE CANNABIS AND AMPHETAMINES URINALYSIS NEGATIVE Appearnace: Other (APPROPRIATE. AVERAGE HIGH AVERAGE WEIGHT MALE.WEARING STREET CLOTHING.BALD) Speech: Other (CIRCUMSTANTIAL) Eye Contact: Normal Motor Activity: Normal Affect: Full Mood: Euthymic Orientation Impairment: None Memory Impairment: None Attention: Normal Hallucinations: None Other: None Suicidality: None Homicidality: None Delusions: None Behavior: Cooperative Insight: Fair Judgment: Fair Treatment ABILIFY 30 MG P.O. DAILY SEROQUEL 550 MG P.O. Q.H.S. TRAZODONE 200 MG P.O. Q.H.S. SENNA 8.6 MG ONE TAB P.O. Q.H.S. ATIVAN 1 MG P.O. Q.6 PRN NEEDED FOR ANXIETY Monitoring by Staff, Milieu, Group, and Individual counseling as needed -- According to the [place] Suicide Assessment the above named patient is on Q15 MINUTE CHECKS. LPS CONSERVED Total time spent 30 minutes on REVIEW OF Clinical notes [X ] RN notes [X] PCT documentation [X] SW notes Labs [ X] Medications [X] Care trends/care activity [X] Vitals [X] DISCUSSION WITH cake press operator helper [X] Staff SW Treatment Team [X] Discharge UNSURE AT THIS TIME. PATIENT IS LPS CONSERVED AWAITING PLACEMENT. CODING VISIT-PSYCHIATRY Date of Service: Nov 07, 2024 Billing Provider: KARIS HALLMAN APRN Psych Common Visit Codes: [id number] INP/OBS CARE(Low) Problem Qualifiers (1) Schizophrenia: Qualified Codes: F20.9 - Schizophrenia, unspecified KARIS HALLMAN APRN Nov 07, 2024 13:53
[2024-11-07 19:00] VITALS: RESP 16; O2SAT 99
--- NOTE | 2024-11-07 19:31 | PROGRESS NOTE- Residence ---
Progress Note - Resident Providers to CC Resident Creating Document: PHILLIP SOSA, RES ~ Antibiotic Timeout Antibiotic Ordered?: No Subjective Patient was seen and examined at bedside, denied any new medical symptoms. He claims of having right wrist dislocation 2 weeks ago at the prior facility and he has reduced it by himself. Objective Vital Signs Date Time Temp Pulse Resp B/P (MAP) Pulse Ox O2 Delivery O2 Flow Rate FiO2 11/07/24 08:35 98.2 65 12 89/59 (69) 99 Room Air Awake , alert, and oriented x4, resting comfortably in the bed, in no acute distress HEENT: Atraumatic, normocephalic, EOMI, anicteric sclera ; pink conjunctiva Neck: Trachea midline. Supple, full range of motion, no JVD Cardiac: Regular rhythm, regular rate with no murmurs all over the precordium. Respiratory: Equal breath sounds bilaterally, no tachypnea, no wheezing ,rub or rales, Chest wall is symmetric and without deformity. Gastrointestinal: Abdomen symmetric, non-distended, soft, non-tender, normal bowel sounds x4 quadrant, normoactive, no hepatosplenomegaly Musculoskeletal: No pedal edema, no cyanosis Neurological: Speech is clear, alert, and oriented x 4. No motor or sensory deficit, deep tendon reflexes normal, cerebellar intact. Cranial nerves II-XII intact. Skin: Warm and dry Advance Care Planning Advanced Care plannin - 30 Minutes Assessment Assessment A 24-year-old single male who was transferred from [facility] for behavior rehabilitation for his behavior issues and substance abuse history was admitted for further management. Plan Plan Schizophrenia Management as per Psychiatry. Substance use history Urine toxicology screen positive for cannabinoids and methamphetamines. Management as per Psychiatry. Substance use navigator and high school social studies teacher consulted. Dislocation of his right wrist Patient was requesting for a wrist brace, ordering it again admissions nursing orders He further denied any pain, pins and needles sensations Wrist x-ray ordered Phillip Sosa MD Internal Medicine Resident, PGY-2 Date of Service: Nov 07, 2024 Billing Provider: JOY NOLASCO MD Common Visit Codes: [id number] INP/OBS CARE(MOD) PHILLIP SOSA, RES Nov 07, 2024 19:31 JOY NOLASCO MD Dec 11, 2024 14:36
[2024-11-07 19:52] VITALS: BP 106/71; PULSE 79; RESP 16; TEMP 98.3; O2SAT 99
[2024-11-08 07:00] VITALS: RESP 16; O2SAT 97
[2024-11-08 08:00] VITALS: BP 105/59; PULSE 61; RESP 16; TEMP 97.8; O2SAT 97
--- NOTE | 2024-11-08 10:56 | PROGRESS NOTE ---
Progress Note Dictate Providers to CC ~ Central Line/PICC still needed: N\\A Antibiotic Ordered?: No MRSA Education MRSA Education Provided to pt: No Objective Vitals Vital Signs Date Time Temp Pulse Resp B/P (MAP) Pulse Ox O2 Delivery O2 Flow Rate FiO2 11/08/24 08:00 97.8 61 16 105/59 (74) 97 Room Air Counseling Services Smoking & Tobacco Cessation: > 10 Minutes Problem\\Assessment\\Plan Problems/Diagnosis: (1) Gravely disabled (2) Schizophrenia Psychiatrist's Progress Note Date of Service: Nov 08, 2024 Notes CHART REVIEW Pt is a 24-year-old single male who is currently conserved in [facility] and his conservator is Yocasta Karel. Pt was recently at [facility] and was discharged in May 2024 and had placement at [facility] in [place]. 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 The pt is now at [facility] awaiting new placement. The pt reports that he felt he was doing well at his most recent placement and doesn't understand why he was moved out and why he likely cannot return. The pt reports that he was close to his dad and was getting visits and is worried he'll be moved to another facility with more restrictions. The pt appears upset and unable to process how the course of his actions led to where he's at now. The pt will likely be at [facility] until his conservator finds placement for him. ASSESSMENT The patient was interviewed in observation room. The patient was actively walking in hallway. The patient endorses "Okay." "I am just bored." The patient endorses no worsening mental health symptoms. Denies SI. Denies HI. Denies AVH. Patient endorses adequate food intake food intake. The patient is stable no acute distress noted. The patient presents as calm, cooperative, and engaged during session. Per staff report patient is medication compliant. Per staff report no abnormal behaviors. Per staff report patient has been engaging with activities in peers. Will continue daily assessment and adjusting treatment as needed. Closely monitor behavior and response to medication during hospitalization. Results Of any Diagn. Testing REVIEW OF LABS WBC 8.0 RBC 4.55 HEMOGLOBIN 14.2 HEMATOCRIT 41.8 PLATELET [id number] SODIUM 143 POTASSIUM 4.2 CHLORIDE 104 ANION GAP 10 BUN 11 CREATININE 0.71 CALCIUM 8.8 ALBUMIN 3.8 TSH 0.78 LDL 71 HDL 50 TRIGLYCERIDES 111 URINE TOX SCREEN POSITIVE CANNABIS AND AMPHETAMINES URINALYSIS NEGATIVE Appearnace: Other (APPROPRIATE. AVERAGE HIGH AVERAGE WEIGHT MALE.WEARING STREET CLOTHING.BALD) Speech: Other (CIRCUMSTANTIAL) Eye Contact: Normal Motor Activity: Normal Affect: Full Mood: Euthymic Orientation Impairment: None Memory Impairment: None Attention: Normal Hallucinations: None Other: None Suicidality: None Homicidality: None Delusions: None Behavior: Cooperative Insight: Fair, Poor Judgment: Fair, Poor Treatment ABILIFY 30 MG P.O. DAILY SEROQUEL 550 MG P.O. Q.H.S. TRAZODONE 200 MG P.O. Q.H.S. SENNA 8.6 MG ONE TAB P.O. Q.H.S. ATIVAN 1 MG P.O. Q.6 PRN NEEDED FOR ANXIETY Monitoring by Staff, Milieu, Group, and Individual counseling as needed -- According to the [place] Suicide Assessment the above named patient is on Q15 MINUTE CHECKS. LPS CONSERVED Total time spent 25 minutes on REVIEW OF Clinical notes [X ] RN notes [X] PCT documentation [X] SW notes Labs [ X] Medications [X] Care trends/care activity [X] Vitals [X] DISCUSSION WITH fiber artist [X] Staff SW Treatment Team [X] Discharge UNSURE AT THIS TIME. PATIENT IS LPS CONSERVED AWAITING PLACEMENT. CODING VISIT-PSYCHIATRY Date of Service: Nov 08, 2024 Billing Provider: KARIS HALLMAN APRN Psych Common Visit Codes: [id number] INP/OBS CARE(Low) Problem Qualifiers (1) Schizophrenia: Qualified Codes: F20.9 - Schizophrenia, unspecified KARIS HALLMAN APRN Nov 08, 2024 10:56
[2024-11-08] MEDS ORDERED: CLIN60SO2 TOP (14:52)
--- NOTE | 2024-11-08 16:29 | RADIOLOGY REPORT ---
EXAM: DI WRIST,LIMITED (AP/LAT) CLINICAL HISTORY: Patient reports dislocation, "popping out sometimes" COMPARISON: None TECHNIQUE: DI WRIST,LIMITED (AP/LAT) Findings/Impression: 2 views of the right wrist. There is no evidence of an acute fracture, dislocation, blastic, or lytic lesions. If symptoms persis t or worsen, recommend CT for further evaluation. No radiopaque foreign bodies. No joint effusion or superficial soft tissue abnormalities.
[2024-11-08 19:53] VITALS: BP 104/61; PULSE 100; RESP 18; TEMP 98.7; O2SAT 97
[2024-11-08 20:00] VITALS: RESP 18; O2SAT 97
[2024-11-09 07:00] VITALS: RESP 18; O2SAT 97
[2024-11-09 08:00] VITALS: BP 131/82; PULSE 71; RESP 18; TEMP 97.8; O2SAT 97
--- NOTE | 2024-11-09 14:21 | PROGRESS NOTE ---
Progress Note Dictate Providers to CC ~ Central Line/PICC still needed: N\\A Antibiotic Ordered?: No MRSA Education MRSA Education Provided to pt: No Objective Vitals Vital Signs Date Time Temp Pulse Resp B/P (MAP) Pulse Ox O2 Delivery O2 Flow Rate FiO2 11/09/24 08:00 97.8 71 18 131/82 (98) 97 Room Air Problem\\Assessment\\Plan Problems/Diagnosis: (1) Gravely disabled (2) Schizophrenia Psychiatrist's Progress Note Date of Service: Nov 09, 2024 Notes CHART REVIEW Pt is a 24-year-old single male who is currently conserved in [facility] and his conservator is Yocasta Karel. Pt was recently at [facility] and was discharged in May 2024 and had placement at [facility] in [place]. 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 The pt is now at [facility] awaiting new placement. The pt reports that he felt he was doing well at his most recent placement and doesn't understand why he was moved out and why he likely cannot return. The pt reports that he was close to his dad and was getting visits and is worried he'll be moved to another facility with more restrictions. The pt appears upset and unable to process how the course of his actions led to where he's at now. The pt will likely be at [facility] until his conservator finds placement for him. ASSESSMENT The patient was interviewed in observation room. The patient was actively resting in bed with eyes closed. The patient endorses "good.' The patient endorses no worsening mental health symptoms. Denies SI. Denies HI. Denies AVH. Patient endorses adequate food intake food intake. The patient is stable no acute distress noted. The patient presents as calm, cooperative, and engaged during session. Per staff report patient is medication compliant. Per staff report no abnormal behaviors. Per staff report patient has been engaging with activities in peers. Will continue daily assessment and adjusting treatment as needed. Closely monitor behavior and response to medication during hospitalization. Results Of any Diagn. Testing REVIEW OF LABS WBC 8.0 RBC 4.55 HEMOGLOBIN 14.2 HEMATOCRIT 41.8 PLATELET [id number] SODIUM 143 POTASSIUM 4.2 CHLORIDE 104 ANION GAP 10 BUN 11 CREATININE 0.71 CALCIUM 8.8 ALBUMIN 3.8 TSH 0.78 LDL 71 HDL 50 TRIGLYCERIDES 111 URINE TOX SCREEN POSITIVE CANNABIS AND AMPHETAMINES URINALYSIS NEGATIVE Appearnace: Other (APPROPRIATE. AVERAGE HIGH AVERAGE WEIGHT MALE.WEARING STREET CLOTHING.BALD HEAD) Speech: Other (CIRCUMSTANTIAL) Eye Contact: Normal Motor Activity: Normal Affect: Full Mood: Euthymic Orientation Impairment: None Memory Impairment: None Attention: Normal Hallucinations: None Other: None Suicidality: None Homicidality: None Delusions: None Behavior: Cooperative Insight: Fair Judgment: Fair Treatment ABILIFY 30 MG P.O. DAILY SEROQUEL 550 MG P.O. Q.H.S. TRAZODONE 200 MG P.O. Q.H.S. SENNA 8.6 MG ONE TAB P.O. Q.H.S. ATIVAN 1 MG P.O. Q.6 PRN NEEDED FOR ANXIETY Monitoring by Staff, Milieu, Group, and Individual counseling as needed -- According to the [place] Suicide Assessment the above named patient is on Q15 MINUTE CHECKS. LPS CONSERVED Total time spent 20 minutes on REVIEW OF Clinical notes [X ] RN notes [X] PCT documentation [X] SW notes Labs [ X] Medications [X] Care trends/care activity [X] Vitals [X] DISCUSSION WITH time clock inspector [X] Staff SW Treatment Team [X] Discharge UNSURE AT THIS TIME. PATIENT IS LPS CONSERVED AWAITING PLACEMENT. CODING VISIT-PSYCHIATRY Date of Service: Nov 09, 2024 Billing Provider: KARIS HALLMAN APRN Psych Common Visit Codes: [id number] INP/OBS CARE(Mod) Problem Qualifiers (1) Schizophrenia: Qualified Codes: F20.9 - Schizophrenia, unspecified KARIS HALLMAN APRN Nov 09, 2024 14:21
--- NOTE | 2024-11-09 15:28 | PROGRESS NOTE ---
Daily Progress Note Providers to CC ~ no new complaint today, resting comfortably in the bed Central Line/PICC still needed: No Grullon-Non Protocol Grullon Indications Met/Not Met: F/C Indications Not Met Antibiotic Timeout Antibiotic Ordered?: No MRSA Education MRSA Education Provided to pt: No Subjective As above Objective Vital Signs Date Time Temp Pulse Resp B/P (MAP) Pulse Ox O2 Delivery O2 Flow Rate FiO2 11/09/24 08:00 97.8 71 18 131/82 (98) 97 Room Air Vital signs, stable ,afebrile. Pulse Oximetry reflects adequate oxygenation. BMI is 24 General: well developed, well nourished. Awake , alert, and oriented x4, resting comfortably in the bed, in no acute distress . Skin: Warm, dry, no pallor, no rash or petechiae. HEENT: Atraumatic, normocephalic, EOMI, anicteric sclera B; pink conjunctiva; PERRLA, normal oropharynx, moist oral and nasal mucosa. Tympanic membrane , nose , throat clear. Neck: Trachea midline. Supple, full range of motion, no JVD, bruit , hepatojugular reflex , lymphadenopathy or masses, or other lesions Cardiac: Regular rhythm, regular rate no murmurs, rubs, or gallops. Normal S1 and S2, no S3 noticed. PMI is normal. Respiratory: Equal breath sounds bilaterally, no tachypnea; lungs clear to auscultation bilaterally, no wheezing ,rub or rales, or crackles. Chest wall is symmetric and without deformity. No signs of trauma. Chest wall is nontender. No signs of respiratory distress. Resonance is normal upon percussion bilaterally. Gastrointestinal: Abdomen symmetric, non-distended, soft, non-tender, normal bowel sounds x4 quadrant, normoactive, no hepatosplenomegaly , no masses , no bruit, no flank pain bilaterally. No voluntary guarding, rebound, or rigidity. No tenderness to percussion. No pulsatile masses. Equal femoral pulses. No Stafford's sign or McBurney point tenderness. Back; no CVA tenderness bilaterally, no deformities. Neck and back are without deformity as well. No tenderness noted on palpation of the spinous processes. Spinous processes are midline. Cervical, thoracic, and lumbar paraspinal muscles are not tender and are without spasm. : normal external genitalia, without lesions, swelling, masses or tenderness. Musculoskeletal: Extremities, normal range of motion, non-tender, muscle strength 5/5 x 4. Negative Homans signs bilaterally on lower extremity. Distal pulses full symmetrical, no clubbing, cyanosis , edema. Neurological: Speech is clear, alert, and oriented x 4. No motor or sensory deficit, deep tendon reflexes normal, cerebellar intact. Cranial nerves II-XII intact. Psych: Alert and or appropriate, normal affect. Vascular: Good distal pulses, which are equal x4; capillary refill less than 2 seconds. Lymphatic, no lymphadenopathy. Problem\Assessment\Plan Assessment/plan Schizophrenia in exacerbation Management as per Psychiatry. Substance use history Urine toxicology screen positive for cannabinoids and methamphetamines. Management as per Psychiatry. Substance use navigator and social work specialist. Labs reviewed. The patient does not have any other past or present medical conditions. Disposition: Hospitalist team will continue to follow the patient during the course of his hospital stay. Sepsis Screening Reassessment Date: Nov 09, 2024 Date of Service: Nov 09, 2024 Billing Provider: BULMARO SCANLON MD Common Visit Codes: [id number] INP/OBS CARE(LOW) BULMARO SCANLON MD Nov 09, 2024 15:28
[2024-11-09 19:00] VITALS: RESP 16; O2SAT 99
[2024-11-09 20:00] VITALS: BP 109/67; PULSE 66; RESP 16; TEMP 98.1; O2SAT 99
[2024-11-10 07:00] VITALS: RESP 16; O2SAT 98
--- NOTE | 2024-11-10 07:46 | PROGRESS NOTE ---
Progress Note Dictate Providers to CC ~ Central Line/PICC still needed: N\\A Antibiotic Ordered?: No MRSA Education MRSA Education Provided to pt: No Objective Vitals Vital Signs Date Time Temp Pulse Resp B/P (MAP) Pulse Ox O2 Delivery O2 Flow Rate FiO2 11/09/24 20:00 98.1 66 16 109/67 (81) 99 Room Air Counseling Services Smoking & Tobacco Cessation: > 10 Minutes Problem\\Assessment\\Plan Problems/Diagnosis: (1) Gravely disabled (2) Schizophrenia Psychiatrist's Progress Note Date of Service: Nov 10, 2024 Notes CHART REVIEW Pt is a 24-year-old single male who is currently conserved in [facility] and his conservator is Yocasta Karel. Pt was recently at [facility] and was discharged in May 2024 and had placement at [facility] in [place]. 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 The pt is now at [facility] awaiting new placement. The pt reports that he felt he was doing well at his most recent placement and doesn't understand why he was moved out and why he likely cannot return. The pt reports that he was close to his dad and was getting visits and is worried he'll be moved to another facility with more restrictions. The pt appears upset and unable to process how the course of his actions led to where he's at now. The pt will likely be at [facility] until his conservator finds placement for him. ASSESSMENT The patient was interviewed in observation room. The patient was actively standing in hallway engaging with his nurse. The patient endorses "I'm good.' "There is really nothing to do here so I get bored and sleep a lot." "I Am sleeping really good at nighttime too." "My mom brought me some new clothing yesterday." The patient endorses no worsening mental health symptoms. Denies SI. Denies HI. Denies AVH. Patient endorses adequate food intake food intake. The patient is stable no acute distress noted. The patient presents as calm, cooperative, and engaged during session. Per staff report patient is medication compliant. Per staff report no abnormal behaviors. Will continue daily assessment and adjusting treatment as needed. Closely monitor behavior and response to medication during hospitalization. Results Of any Diagn. Testing REVIEW OF LABS WBC 8.0 RBC 4.55 HEMOGLOBIN 14.2 HEMATOCRIT 41.8 PLATELET [id number] SODIUM 143 POTASSIUM 4.2 CHLORIDE 104 ANION GAP 10 BUN 11 CREATININE 0.71 CALCIUM 8.8 ALBUMIN 3.8 TSH 0.78 LDL 71 HDL 50 TRIGLYCERIDES 111 URINE TOX SCREEN POSITIVE CANNABIS AND AMPHETAMINES URINALYSIS NEGATIVE Appearnace: Other (APPROPRIATE. AVERAGE HIGH AVERAGE WEIGHT MALE.WEARING STREET CLOTHING.BALD HEAD) Speech: Other (CIRCUMSTANTIAL) Eye Contact: Other (INTERMITTENT) Motor Activity: Normal Affect: Full Orientation Impairment: None Memory Impairment: None Attention: Normal Hallucinations: None Other: None Suicidality: None Homicidality: None Delusions: None Behavior: Cooperative Insight: Fair Judgment: Fair Treatment ABILIFY 30 MG P.O. DAILY SEROQUEL 550 MG P.O. Q.H.S. TRAZODONE 200 MG P.O. Q.H.S. SENNA 8.6 MG ONE TAB P.O. Q.H.S. ATIVAN 1 MG P.O. Q.6 PRN NEEDED FOR ANXIETY Monitoring by Staff, Milieu, Group, and Individual counseling as needed -- According to the [place] Suicide Assessment the above named patient is on Q15 MINUTE CHECKS. LPS CONSERVED Total time spent 25 minutes on REVIEW OF Clinical notes [X ] RN notes [X] PCT documentation [X] SW notes Labs [ X] Medications [X] Care trends/care activity [X] Vitals [X] DISCUSSION WITH ehs specialist [X] Staff SW Treatment Team [X] Discharge UNSURE AT THIS TIME. PATIENT IS LPS CONSERVED AWAITING PLACEMENT. CODING VISIT-PSYCHIATRY Date of Service: Nov 10, 2024 Billing Provider: KARIS HALLMAN APRN Psych Common Visit Codes: [id number] INP/OBS CARE(Low) Problem Qualifiers (1) Schizophrenia: Qualified Codes: F20.9 - Schizophrenia, unspecified KARIS HALLMAN APRN Nov 10, 2024 07:46
[2024-11-10 07:58] VITALS: BP 92/50; PULSE 78; RESP 16; TEMP 97.5; O2SAT 98
[2024-11-10 19:17] VITALS: RESP 16; O2SAT 98
[2024-11-10 19:21] VITALS: BP 113/70; PULSE 79; RESP 16; TEMP 98; O2SAT 98
[2024-11-11 07:00] VITALS: RESP 12; O2SAT 97
[2024-11-11 08:00] VITALS: BP 105/62; PULSE 57; RESP 12; TEMP 97
--- NOTE | 2024-11-11 10:45 | PROGRESS NOTE ---
Progress Note Dictate Providers to CC ~ Central Line/PICC still needed: N\\A Antibiotic Ordered?: No MRSA Education MRSA Education Provided to pt: No Objective Vitals Vital Signs Date Time Temp Pulse Resp B/P (MAP) Pulse Ox O2 Delivery O2 Flow Rate FiO2 11/10/24 19:21 98.0 79 16 113/70 (84) 98 Room Air Counseling Services Smoking & Tobacco Cessation: > 10 Minutes Problem\\Assessment\\Plan Problems/Diagnosis: (1) Gravely disabled (2) Schizophrenia Psychiatrist's Progress Note Date of Service: Nov 11, 2024 Notes CHART REVIEW Pt is a 24-year-old single male who is currently conserved in [facility] and his conservator is Yocasta Karel. Pt was recently at [facility] and was discharged in May 2024 and had placement at [facility] in [place]. 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 The pt is now at [facility] awaiting new placement. The pt reports that he felt he was doing well at his most recent placement and doesn't understand why he was moved out and why he likely cannot return. The pt reports that he was close to his dad and was getting visits and is worried he'll be moved to another facility with more restrictions. The pt appears upset and unable to process how the course of his actions led to where he's at now. The pt will likely be at [facility] until his conservator finds placement for him. ASSESSMENT The patient was interviewed in observation room. The patient was actively standing in hallway. The patient endorses "doing good." "Have you heard anything?" "I am just bored out of my mind but my sister should be coming to see me tonight." The patient endorses no worsening mental health symptoms. Denies SI. Denies HI. Denies AVH. Patient endorses adequate food intake food intake. The patient is stable no acute distress noted. The patient presents as calm, cooperative, and engaged during session. Per staff report patient is medication compliant. Per staff report no abnormal behaviors. Will continue daily assessment and adjusting treatment as needed. Closely monitor behavior and response to medication during hospitalization. Results Of any Diagn. Testing REVIEW OF LABS WBC 8.0 RBC 4.55 HEMOGLOBIN 14.2 HEMATOCRIT 41.8 PLATELET [id number] SODIUM 143 POTASSIUM 4.2 CHLORIDE 104 ANION GAP 10 BUN 11 CREATININE 0.71 CALCIUM 8.8 ALBUMIN 3.8 TSH 0.78 LDL 71 HDL 50 TRIGLYCERIDES 111 URINE TOX SCREEN POSITIVE CANNABIS AND AMPHETAMINES URINALYSIS NEGATIVE Appearnace: Other (APPROPRIATE. AVERAGE HIGH AVERAGE WEIGHT MALE.WEARING STREET CLOTHING.BALD HEAD) Speech: Other (CIRCUMSTANTIAL) Eye Contact: Normal Motor Activity: Normal Affect: Full Orientation Impairment: None Memory Impairment: None Attention: Normal Hallucinations: None Other: None Suicidality: None Homicidality: None Delusions: None Behavior: Cooperative Insight: Fair Judgment: Fair Treatment ABILIFY 30 MG P.O. DAILY SEROQUEL 550 MG P.O. Q.H.S. TRAZODONE 200 MG P.O. Q.H.S. SENNA 8.6 MG ONE TAB P.O. Q.H.S. ATIVAN 1 MG P.O. Q.6 PRN NEEDED FOR ANXIETY Monitoring by Staff, Milieu, Group, and Individual counseling as needed -- According to the [place] Suicide Assessment the above named patient is on Q15 MINUTE CHECKS. LPS CONSERVED Total time spent 30 minutes on REVIEW OF Clinical notes [X ] RN notes [X] PCT documentation [X] SW notes Labs [ X] Medications [X] Care trends/care activity [X] Vitals [X] DISCUSSION WITH counter server [X] Staff SW Treatment Team [X] Discharge UNSURE AT THIS TIME. PATIENT IS LPS CONSERVED AWAITING PLACEMENT. CODING VISIT-PSYCHIATRY Date of Service: Nov 11, 2024 Billing Provider: KARIS HALLMAN APRN Psych Common Visit Codes: [id number] INP/OBS CARE(Low) Problem Qualifiers (1) Schizophrenia: Qualified Codes: F20.9 - Schizophrenia, unspecified KARIS HALLMAN APRN Nov 11, 2024 10:45
--- NOTE | 2024-11-11 15:31 | PROGRESS NOTE ---
Daily Progress Note Providers to CC Doing fine, no new complaint, resting comfortably in the bed ~ Central Line/PICC still needed: No Grullon-Non Protocol Grullon Indications Met/Not Met: F/C Indications Not Met Antibiotic Timeout Antibiotic Ordered?: No MRSA Education MRSA Education Provided to pt: No Subjective As above Objective Vital Signs Date Time Temp Pulse Resp B/P (MAP) Pulse Ox O2 Delivery O2 Flow Rate FiO2 11/11/24 08:00 97.0 57 12 105/62 (76) Room Air 11/11/24 07:00 97 Vital signs, stable ,afebrile. Pulse Oximetry reflects adequate oxygenation. General: well developed, well nourished. Awake , alert, and oriented x4, resting comfortably in the bed, in no acute distress . Skin: Warm, dry, no pallor, no rash or petechiae. HEENT: Atraumatic, normocephalic, EOMI, anicteric sclera B; pink conjunctiva; PERRLA, normal oropharynx, moist oral and nasal mucosa. Tympanic membrane , nose , throat clear. Neck: Trachea midline. Supple, full range of motion, no JVD, bruit , hepatojugular reflex , lymphadenopathy or masses, or other lesions Cardiac: Regular rhythm, regular rate no murmurs, rubs, or gallops. Normal S1 and S2, no S3 noticed. PMI is normal. Respiratory: Equal breath sounds bilaterally, no tachypnea; lungs clear to auscultation bilaterally, no wheezing ,rub or rales, or crackles. Chest wall is symmetric and without deformity. No signs of trauma. Chest wall is nontender. No signs of respiratory distress. Resonance is normal upon percussion bilaterally. Gastrointestinal: Abdomen symmetric, non-distended, soft, non-tender, normal bowel sounds x4 quadrant, normoactive, no hepatosplenomegaly , no masses , no bruit, no flank pain bilaterally. No voluntary guarding, rebound, or rigidity. No tenderness to percussion. No pulsatile masses. Equal femoral pulses. No Stafford's sign or McBurney point tenderness. Back; no CVA tenderness bilaterally, no deformities. Neck and back are without deformity as well. No tenderness noted on palpation of the spinous processes. Spinous processes are midline. Cervical, thoracic, and lumbar paraspinal muscles are not tender and are without spasm. : normal external genitalia, without lesions, swelling, masses or tenderness. Musculoskeletal: Extremities, normal range of motion, non-tender, muscle strength 5/5 x 4. Negative Homans signs bilaterally on lower extremity. Distal pulses full symmetrical, no clubbing, cyanosis , edema. Neurological: Speech is clear, alert, and oriented x 4. No motor or sensory deficit, deep tendon reflexes normal, cerebellar intact. Cranial nerves II-XII intact. Psych: Alert and or appropriate, normal affect. Vascular: Good distal pulses, which are equal x4; capillary refill less than 2 seconds. Lymphatic, no lymphadenopathy. Problem\Assessment\Plan Assessment/plan Schizophrenia in exacerbation Management as per Psychiatry. Substance use history Urine toxicology screen positive for cannabinoids and methamphetamines. Management as per Psychiatry. Substance use navigator and social research assistant. Labs reviewed. T Disposition: Hospitalist team will continue to follow the patient during the course of his hospital stay. Sepsis Screening Reassessment Date: Nov 11, 2024 Date of Service: Nov 11, 2024 Billing Provider: BULMARO SCANLON MD Common Visit Codes: [id number] INP/OBS CARE(LOW) BULMARO SCANLON MD Nov 11, 2024 15:31
[2024-11-11 19:38] VITALS: RESP 17; O2SAT 99
[2024-11-11 19:39] VITALS: PULSE 78; RESP 17; TEMP 98.1; O2SAT 99
[2024-11-12 07:00] VITALS: RESP 14; O2SAT 100
[2024-11-12 08:00] VITALS: BP 96/60; PULSE 71; RESP 14; TEMP 97.6; O2SAT 100
--- NOTE | 2024-11-12 10:25 | PROGRESS NOTE ---
Progress Note Dictate Providers to CC ~ Central Line/PICC still needed: N\\A Antibiotic Ordered?: No MRSA Education MRSA Education Provided to pt: No Objective Vitals Vital Signs Date Time Temp Pulse Resp B/P (MAP) Pulse Ox O2 Delivery O2 Flow Rate FiO2 11/11/24 19:39 98.1 78 17 99 Room Air 11/11/24 08:00 105/62 (76) Problem\\Assessment\\Plan Problems/Diagnosis: (1) Gravely disabled (2) Schizophrenia Psychiatrist's Progress Note Date of Service: Nov 12, 2024 Notes CHART REVIEW Pt is a 24-year-old single male who is currently conserved in [facility] and his conservator is Yocasta Karel. Pt was recently at [facility] and was discharged in May 2024 and had placement at [facility] in [place]. 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 The pt is now at [facility] awaiting new placement. The pt reports that he felt he was doing well at his most recent placement and doesn't understand why he was moved out and why he likely cannot return. The pt reports that he was close to his dad and was getting visits and is worried he'll be moved to another facility with more restrictions. The pt appears upset and unable to process how the course of his actions led to where he's at now. The pt will likely be at [facility] until his conservator finds placement for him. ASSESSMENT The patient was interviewed in observation room. The patient was actively laying in bed with eyes open. The patient endorses "Good." The patient endorses no worsening mental health symptoms. Denies SI. Denies HI. Denies AVH. Patient endorses adequate food intake food intake. The patient is stable no acute distress noted. The patient presents as calm, cooperative, and engaged during session. Per staff report patient is medication compliant. Per staff report no abnormal behaviors. Will continue daily assessment and adjusting treatment as needed. Closely monitor behavior and response to medication during hospitalization. Results Of any Diagn. Testing REVIEW OF LABS WBC 8.0 RBC 4.55 HEMOGLOBIN 14.2 HEMATOCRIT 41.8 PLATELET [id number] SODIUM 143 POTASSIUM 4.2 CHLORIDE 104 ANION GAP 10 BUN 11 CREATININE 0.71 CALCIUM 8.8 ALBUMIN 3.8 TSH 0.78 LDL 71 HDL 50 TRIGLYCERIDES 111 URINE TOX SCREEN POSITIVE CANNABIS AND AMPHETAMINES URINALYSIS NEGATIVE Appearnace: Other (APPROPRIATE. AVERAGE HIGH AVERAGE WEIGHT MALE.WEARING STREET CLOTHING.BALD HEAD) Speech: Other (CIRCUMSTANTIAL) Eye Contact: Normal Motor Activity: Normal Affect: Full Orientation Impairment: None Memory Impairment: None Attention: Normal Hallucinations: None Other: None Suicidality: None Homicidality: None Delusions: None Behavior: Cooperative Insight: Fair Judgment: Fair Treatment ABILIFY 30 MG P.O. DAILY SEROQUEL 550 MG P.O. Q.H.S. TRAZODONE 200 MG P.O. Q.H.S. SENNA 8.6 MG ONE TAB P.O. Q.H.S. ATIVAN 1 MG P.O. Q.6 PRN NEEDED FOR ANXIETY Monitoring by Staff, Milieu, Group, and Individual counseling as needed -- According to the [place] Suicide Assessment the above named patient is on Q15 MINUTE CHECKS. LPS CONSERVED Total time spent 25 minutes on REVIEW OF Clinical notes [X ] RN notes [X] PCT documentation [X] SW notes Labs [ X] Medications [X] Care trends/care activity [X] Vitals [X] DISCUSSION WITH transformer mechanic [X] Staff SW Treatment Team [X] Discharge UNSURE AT THIS TIME. PATIENT IS LPS CONSERVED AWAITING PLACEMENT. CODING VISIT-PSYCHIATRY Date of Service: Nov 12, 2024 Billing Provider: KARIS HALLMAN APRN Psych Common Visit Codes: [id number] INP/OBS CARE(Low) Problem Qualifiers (1) Schizophrenia: Qualified Codes: F20.9 - Schizophrenia, unspecified KARIS HALLMAN APRN Nov 12, 2024 10:25
[2024-11-12 19:00] VITALS: RESP 16; O2SAT 98
[2024-11-12 20:00] VITALS: BP 102/75; PULSE 73; RESP 16; TEMP 97.9; O2SAT 98
[2024-11-13 07:00] VITALS: RESP 16; O2SAT 98
[2024-11-13 08:00] VITALS: BP 102/54; PULSE 88; RESP 16; TEMP 97.8; O2SAT 98
--- NOTE | 2024-11-13 11:44 | PROGRESS NOTE ---
Progress Note Dictate Providers to CC ~ Central Line/PICC still needed: N\\A Antibiotic Ordered?: No MRSA Education MRSA Education Provided to pt: No Objective Vitals Vital Signs Date Time Temp Pulse Resp B/P (MAP) Pulse Ox O2 Delivery O2 Flow Rate FiO2 11/13/24 08:00 97.8 88 16 102/54 (70) 98 Room Air Counseling Services Smoking & Tobacco Cessation: > 10 Minutes Problem\\Assessment\\Plan Problems/Diagnosis: (1) Gravely disabled (2) Schizophrenia Psychiatrist's Progress Note Date of Service: Nov 13, 2024 Notes CHART REVIEW Pt is a 24-year-old single male who is currently conserved in [facility] and his conservator is Yocasta Karel. Pt was recently at [facility] and was discharged in May 2024 and had placement at [facility] in [place]. 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 The pt is now at [facility] awaiting new placement. The pt reports that he felt he was doing well at his most recent placement and doesn't understand why he was moved out and why he likely cannot return. The pt reports that he was close to his dad and was getting visits and is worried he'll be moved to another facility with more restrictions. The pt appears upset and unable to process how the course of his actions led to where he's at now. The pt will likely be at [facility] until his conservator finds placement for him. ASSESSMENT The patient was interviewed in observation room. The patient was actively walking in hallway. The patient endorses "alright." "It is so boring here." She was informed he will get a chest x-ray today so that his conservator can continue to send out packets for placement. The patient endorses no worsening mental health symptoms. Denies SI. Denies HI. Denies AVH. Patient endorses adequate food intake food intake. The patient is stable no acute distress noted. The patient presents as calm, cooperative, and engaged during session. Per staff report patient is medication compliant. Per staff report no abnormal behaviors. Will continue daily assessment and adjusting treatment as needed. Closely monitor behavior and response to medication during hospitalization. Results Of any Diagn. Testing REVIEW OF LABS WBC 8.0 RBC 4.55 HEMOGLOBIN 14.2 HEMATOCRIT 41.8 PLATELET [id number] SODIUM 143 POTASSIUM 4.2 CHLORIDE 104 ANION GAP 10 BUN 11 CREATININE 0.71 CALCIUM 8.8 ALBUMIN 3.8 TSH 0.78 LDL 71 HDL 50 TRIGLYCERIDES 111 URINE TOX SCREEN POSITIVE CANNABIS AND AMPHETAMINES URINALYSIS NEGATIVE Appearnace: Other (APPROPRIATE. AVERAGE HIGH AVERAGE WEIGHT MALE.WEARING STREE T CLOTHING.BALD HEAD) Speech: Other (CIRCUMSTANTIAL) Eye Contact: Normal Motor Activity: Normal Affect: Full Mood: Euthymic Orientation Impairment: None Memory Impairment: None Attention: Normal Hallucinations: None Other: None Suicidality: None Homicidality: None Delusions: None Behavior: Cooperative Insight: Fair Judgment: Fair Treatment ABILIFY 30 MG P.O. DAILY SEROQUEL 550 MG P.O. Q.H.S. TRAZODONE 200 MG P.O. Q.H.S. SENNA 8.6 MG ONE TAB P.O. Q.H.S. ATIVAN 1 MG P.O. Q.6 PRN NEEDED FOR ANXIETY Monitoring by Staff, Milieu, Group, and Individual counseling as needed -- According to the [place] Suicide Assessment the above named patient is on Q15 MINUTE CHECKS. LPS CONSERVED Total time spent 40 minutes on REVIEW OF Clinical notes [X ] RN notes [X] PCT documentation [X] SW notes Labs [ X] Medications [X] Care trends/care activity [X] Vitals [X] DISCUSSION WITH engine installer [X] Staff SW Treatment Team [X] Discharge UNSURE AT THIS TIME. PATIENT IS LPS CONSERVED AWAITING PLACEMENT. CODING VISIT-PSYCHIATRY Date of Service: Nov 13, 2024 Billing Provider: KARIS HALLMAN APRN Psych Common Visit Codes: [id number] INP/OBS CARE(Low) Problem Qualifiers (1) Schizophrenia: Qualified Codes: F20.9 - Schizophrenia, unspecified KARIS HALLMAN APRN Nov 13, 2024 11:44
--- NOTE | 2024-11-13 12:34 | RADIOLOGY REPORT ---
CHEST RADIOGRAPH Indication: to rule out Tuberculosis, placement Technique: Single frontal view of the chest was obtained Comparison: DI CHEST,SINGLE VIEW on DOS: 06/05/24, CHEST,SINGLE VIEW on DOS: 06/22/22 FINDINGS: Lines and Tubes: None Lungs: No focal consolidation. Pleura: No effusion. No pneumothorax. Cardiomediastinal contours: Unremarkable Bones: No acute osseous abnormality. IMPRESSION: No acute cardiopulmonary disease.
[2024-11-13 19:00] VITALS: RESP 16; O2SAT 99
--- NOTE | 2024-11-13 19:21 | PROGRESS NOTE- Residence ---
Progress Note - Resident Providers to CC Resident Creating Document: PHILLIP SOSA, RES ~ Antibiotic Timeout Antibiotic Ordered?: No Subjective Patient was seen and examined at bedside, denied any new medical symptoms. Objective Vital Signs Date Time Temp Pulse Resp B/P (MAP) Pulse Ox O2 Delivery O2 Flow Rate FiO2 11/13/24 08:00 97.8 88 16 102/54 (70) 98 Room Air Awake , alert, and oriented x4, resting comfortably in the bed, in no acute distress HEENT: Atraumatic, normocephalic, EOMI, anicteric sclera ; pink conjunctiva Neck: Trachea midline. Supple, full range of motion, no JVD Cardiac: Regular rhythm, regular rate with no murmurs all over the precordium. Respiratory: Equal breath sounds bilaterally, no tachypnea, no wheezing ,rub or rales, Chest wall is symmetric and without deformity. Gastrointestinal: Abdomen symmetric, non-distended, soft, non-tender, normal bowel sounds x4 quadrant, normoactive, no hepatosplenomegaly Musculoskeletal: No pedal edema, no cyanosis Neurological: Speech is clear, alert, and oriented x 4. No motor or sensory deficit, deep tendon reflexes normal, cerebellar intact. Cranial nerves II-XII intact. Skin: Warm and dry Advance Care Planning Advanced Care plannin - 30 Minutes Assessment Assessment A 24-year-old single male who was transferred from [place] for behavior rehabilitation for his behavior issues and substance abuse history was admitted for further management. Plan Plan Schizophrenia Management as per Psychiatry. Substance use history Urine toxicology screen positive for cannabinoids and methamphetamines. Management as per Psychiatry. Substance use navigator and social secretary consulted. Dislocation of his right wrist Patient was requesting for a wrist brace, ordering it again admissions nursing orders He further denied any pain, pins and needles sensations Wrist x-ray: There is no evidence of an acute fracture, dislocation, blastic, or lytic lesions. If symptoms persist or worsen, recommend CT for further evaluation. No radiopaque foreign bodies. Phillip Sosa MD Internal Medicine Resident, PGY-2 Date of Service: Nov 13, 2024 Billing Provider: JOY NOLASCO MD Common Visit Codes: [id number] INP/OBS CARE(MOD) PHILLIP SOSA, MERVAT Nov 13, 2024 19:21 JOY NOLASCO MD Dec 11, 2024 14:36
[2024-11-13 19:54] VITALS: BP 117/62; PULSE 77; RESP 16; TEMP 98.4; O2SAT 99
[2024-11-14 07:00] VITALS: RESP 17; O2SAT 97
[2024-11-14 08:00] VITALS: BP 120/58; PULSE 64; RESP 17; TEMP 98.3; O2SAT 97
--- NOTE | 2024-11-14 14:00 | PROGRESS NOTE ---
Progress Note Dictate Providers to CC ~ Central Line/PICC still needed: N\\A Antibiotic Ordered?: No MRSA Education MRSA Education Provided to pt: No Objective Vitals Vital Signs Date Time Temp Pulse Resp B/P (MAP) Pulse Ox O2 Delivery O2 Flow Rate FiO2 11/14/24 08:00 98.3 64 17 120/58 (78) 97 Room Air Counseling Services Smoking & Tobacco Cessation: > 10 Minutes Problem\\Assessment\\Plan Problems/Diagnosis: (1) Gravely disabled (2) Schizophrenia Psychiatrist's Progress Note Date of Service: Nov 14, 2024 Notes CHART REVIEW Pt is a 24-year-old single male who is currently conserved in [facility] and his conservator is Yocasta Karel. Pt was recently at [facility] and was discharged in May 2024 and had placement at [facility] in [place]. 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 The pt is now at [facility] awaiting new placement. The pt reports that he felt he was doing well at his most recent placement and doesn't understand why he was moved out and why he likely cannot return. The pt reports that he was close to his dad and was getting visits and is worried he'll be moved to another facility with more restrictions. The pt appears upset and unable to process how the course of his actions led to where he's at now. The pt will likely be at [facility] until his conservator finds placement for him. ASSESSMENT The patient was interviewed in observation room. The patient was actively standing in hallway. The patient endorses "doing good.' The patient endorses no worsening mental health symptoms. Denies SI. Denies HI. Denies AVH. Patient endorses adequate food intake food intake. The patient is stable no acute distress noted. The patient presents as calm, cooperative, and engaged during session. Per staff report patient is medication compliant. Per staff report no abnormal behaviors. Will continue daily assessment and adjusting treatment as needed. Closely monitor behavior and response to medication during hospitalization. Results Of any Diagn. Testing REVIEW OF LABS WBC 8.0 RBC 4.55 HEMOGLOBIN 14.2 HEMATOCRIT 41.8 PLATELET [id number] SODIUM 143 POTASSIUM 4.2 CHLORIDE 104 ANION GAP 10 BUN 11 CREATININE 0.71 CALCIUM 8.8 ALBUMIN 3.8 TSH 0.78 LDL 71 HDL 50 TRIGLYCERIDES 111 URINE TOX SCREEN POSITIVE CANNABIS AND AMPHETAMINES URINALYSIS NEGATIVE Appearnace: Other (APPROPRIATE. AVERAGE HIGH AVERAGE WEIGHT MALE.WEARING STREET CLOTHING.BALD HEAD) Speech: Other (CIRCUMSTANTIAL) Eye Contact: Normal Motor Activity: Normal Affect: Full Orientation Impairment: None Memory Impairment: None Attention: Normal Hallucinations: None Other: None Suicidality: None Homicidality: None Delusions: None Behavior: Cooperative Insight: Fair Judgment: Fair Treatment ABILIFY 30 MG P.O. DAILY SEROQUEL 550 MG P.O. Q.H.S. TRAZODONE 200 MG P.O. Q.H.S. SENNA 8.6 MG ONE TAB P.O. Q.H.S. ATIVAN 1 MG P.O. Q.6 PRN NEEDED FOR ANXIETY Monitoring by Staff, Milieu, Group, and Individual counseling as needed -- According to the [place] Suicide Assessment the above named patient is on Q15 MINUTE CHECKS. LPS CONSERVED Total time spent 30 minutes on REVIEW OF Clinical notes [X ] RN notes [X] PCT documentation [X] SW notes Labs [ X] Medications [X] Care trends/care activity [X] Vitals [X] DISCUSSION WITH organizational development consultant [X] Staff SW Treatment Team [X] Discharge UNSURE AT THIS TIME. PATIENT IS LPS CONSERVED AWAITING PLACEMENT. CODING VISIT-PSYCHIATRY Date of Service: Nov 14, 2024 Billing Provider: KARIS HALLMAN APRN Psych Common Visit Codes: [id number] INP/OBS CARE(Low) Problem Qualifiers (1) Schizophrenia: Qualified Codes: F20.9 - Schizophrenia, unspecified KARIS HALLMAN APRN Nov 14, 2024 14:00
[2024-11-14 19:00] VITALS: RESP 18; O2SAT 98
[2024-11-14 20:00] VITALS: BP 123/73; PULSE 75; RESP 18; TEMP 98; O2SAT 98
[2024-11-15 07:00] VITALS: RESP 16; O2SAT 98
[2024-11-15 08:00] VITALS: BP 129/55; PULSE 57; RESP 16; TEMP 97.2; O2SAT 98
--- NOTE | 2024-11-15 10:48 | PROGRESS NOTE ---
Progress Note Dictate Providers to CC ~ Central Line/PICC still needed: N\\A Antibiotic Ordered?: No MRSA Education MRSA Education Provided to pt: No Objective Vitals Vital Signs Date Time Temp Pulse Resp B/P (MAP) Pulse Ox O2 Delivery O2 Flow Rate FiO2 11/14/24 20:00 98.0 75 18 123/73 (90) 98 Room Air Counseling Services Smoking & Tobacco Cessation: > 10 Minutes Problem\\Assessment\\Plan Problems/Diagnosis: (1) Gravely disabled (2) Schizophrenia Psychiatrist's Progress Note Date of Service: Nov 15, 2024 Notes CHART REVIEW Pt is a 24-year-old single male who is currently conserved in [facility] and his conservator is Yocasta Karel. Pt was recently at [facility] and was discharged in May 2024 and had placement at [facility] in [place]. 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 The pt is now at [facility] awaiting new placement. The pt reports that he felt he was doing well at his most recent placement and doesn't understand why he was moved out and why he likely cannot return. The pt reports that he was close to his dad and was getting visits and is worried he'll be moved to another facility with more restrictions. The pt appears upset and unable to process how the course of his actions led to where he's at now. The pt will likely be at [facility] until his conservator finds placement for him. ASSESSMENT The patient was interviewed in observation room. The patient was actively standing in hallway talking on telephone . The patient endorses "good, just orders usual.' The patient endorses no worsening mental health symptoms. Denies SI. Denies HI. Denies AVH. Patient endorses adequate food intake food intake. The patient is stable no acute distress noted. The patient presents as calm, cooperative, and engaged during session. Per staff report patient is medication compliant. Per staff report no abnormal behaviors. Will continue daily assessment and adjusting treatment as needed. Closely monitor behavior and response to medication during hospitalization. Results Of any Diagn. Testing REVIEW OF LABS WBC 8.0 RBC 4.55 HEMOGLOBIN 14.2 HEMATOCRIT 41.8 PLATELET [id number] SODIUM 143 POTASSIUM 4.2 CHLORIDE 104 ANION GAP 10 BUN 11 CREATININE 0.71 CALCIUM 8.8 ALBUMIN 3.8 TSH 0.78 LDL 71 HDL 50 TRIGLYCERIDES 111 URINE TOX SCREEN POSITIVE CANNABIS AND AMPHETAMINES URINALYSIS NEGATIVE Appearnace: Other (APPROPRIATE. AVERAGE HIGH AVERAGE WEIGHT MALE.WEARING STREET CLOTHING.BALD HEAD) Speech: Other (CIRCUMSTANTIAL) Eye Contact: Normal Motor Activity: Normal Affect: Full Orientation Impairment: None Memory Impairment: None Attention: Normal Hallucinations: None Other: None Suicidality: None Homicidality: None Delusions: None Behavior: Cooperative Insight: Fair Judgment: Fair Treatment ABILIFY 30 MG P.O. DAILY SEROQUEL 550 MG P.O. Q.H.S. TRAZODONE 200 MG P.O. Q.H.S. SENNA 8.6 MG ONE TAB P.O. Q.H.S. ATIVAN 1 MG P.O. Q.6 PRN NEEDED FOR ANXIETY Monitoring by Staff, Milieu, Group, and Individual counseling as needed -- According to the [place] Suicide Assessment the above named patient is on Q15 MINUTE CHECKS. LPS CONSERVED Total time spent 40 minutes on REVIEW OF Clinical notes [X ] RN notes [X] PCT documentation [X] SW notes Labs [ X] Medications [X] Care trends/care activity [X] Vitals [X] DISCUSSION WITH manager nursing [X] Staff SW Treatment Team [X] Discharge UNSURE AT THIS TIME. PATIENT IS LPS CONSERVED AWAITING PLACEMENT. CODING VISIT-PSYCHIATRY Date of Service: Nov 15, 2024 Billing Provider: KARIS HALLMAN APRN Psych Common Visit Codes: [id number] INP/OBS CARE(Low) Problem Qualifiers (1) Schizophrenia: Qualified Codes: F20.9 - Schizophrenia, unspecified KARIS HALLMAN APRN Nov 15, 2024 10:48
--- NOTE | 2024-11-15 17:47 | PROGRESS NOTE- Residence ---
Progress Note - Resident Providers to CC Resident Creating Document: ENMANUEL GARCIAS RES ~ Antibiotic Timeout Antibiotic Ordered?: No Subjective Patient was seen and examined at bedside, denied any new medical symptoms. Objective Vital Signs Date Time Temp Pulse Resp B/P (MAP) Pulse Ox O2 Delivery O2 Flow Rate FiO2 11/15/24 08:00 97.2 57 16 129/55 (79) 98 Room Air General: Well alert, well oriented, not confused, not agitated, not in acute distress, well cooperated during the physical. HEENT: Conjunctive are pink, sclerae clear, no icterus, pupil is equal in both sides, reactive to light, no ear discharge, no pharyngeal erythema or an edema, mouth and lips are moist. Neck: Supple, no JVD, no lymphadenopathy and thyromegaly. Lungs:Equal air entry on both lungs, no additional sounds Heart: S1-S2 regular sinus rhythm and, regular rate, no gallops, no rubs, no murmurs Abdomen: No visible peristalsis, Bowel sounds present on auscultation, soft, nontender, no guarding, no rigidity Extremities: No obvious deformities, no pitting edema bilaterally, capillary refill intact, able to wiggle toes both sides, peripheral pulsations are intact on both sides MACHINE OPERATORS: No focal neurological deficits, no motor and sensory weakness in all 4 extremities, could move all 4 extremities Musculoskeletal: No joint swelling, deformities, inflammations, and no scoliosis and back tenderness Skin: No active skin lesions and rashes Assessment Assessment A 24-year-old single male who was transferred from [place] for behavior rehabilitation for his behavior issues and substance abuse history was admitted for further management. Plan Plan Schizophrenia Management as per Psychiatry. Substance use history Urine toxicology screen positive for cannabinoids and methamphetamines. Management as per Psychiatry. Substance use navigator and social services director consulted. Dislocation of his right wrist Wrist x-ray: There is no evidence of an acute fracture, dislocation, blastic, or lytic lesions. If symptoms persist or worsen, recommend CT for further evaluation. No radiopaque foreign bodies. 11/15/24 Patient denies any pain, pins and needles sensations No new medical symptoms. Date of Service: Nov 15, 2024 Billing Provider: YAMIL VEGA MD Common Visit Codes: [id number] INP/OBS CARE(MOD) ENMANUEL GARCIAS RES Nov 15, 2024 17:46 YAMIL VEGA MD Nov 16, 2024 07:26
[2024-11-15 19:00] VITALS: RESP 17; O2SAT 96
[2024-11-15 20:00] VITALS: BP 123/73; PULSE 75; RESP 18; TEMP 98; O2SAT 98
--- NOTE | 2024-11-16 05:21 | PROGRESS NOTE ---
Progress Note Dictate Providers to CC ~ Central Line/PICC still needed: N\\A Antibiotic Ordered?: No MRSA Education MRSA Education Provided to pt: No Objective Vitals Vital Signs Date Time Temp Pulse Resp B/P (MAP) Pulse Ox O2 Delivery O2 Flow Rate FiO2 11/15/24 20:00 98.0 75 18 123/73 (90) 98 Room Air Problem\\Assessment\\Plan Problems/Diagnosis: (1) Gravely disabled (2) Schizophrenia Psychiatrist's Progress Note Date of Service: Nov 16, 2024 Notes CHART REVIEW Pt is a 24-year-old single male who is currently conserved in [facility] and his conservator is Yocasta Karel. Pt was recently at [facility] and was discharged in May 2024 and had placement at [facility] in [place]. 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 The pt is now at [facility] awaiting new placement. The pt reports that he felt he was doing well at his most recent placement and doesn't understand why he was moved out and why he likely cannot return. The pt reports that he was close to his dad and was getting visits and is worried he'll be moved to another facility with more restrictions. The pt appears upset and unable to process how the course of his actions led to where he's at now. The pt will likely be at [facility] until his conservator finds placement for him. ASSESSMENT The patient was interviewed in observation room. The patient was actively thin at the nurses station engaging with staff. The patient endorses "I'm doing good, just orders usual.' The patient endorses no worsening mental health symptoms. Denies SI. Denies HI. Denies AVH. Patient endorses adequate food intake food intake. The patient is stable no acute distress noted. The patient presents as calm, cooperative, and engaged during session. Per staff report patient is medication compliant. Per staff report no abnormal behaviors. Will continue daily assessment and adjusting treatment as needed. Closely monitor behavior and response to medication during hospitalization. Results Of any Diagn. Testing REVIEW OF LABS WBC 8.0 RBC 4.55 HEMOGLOBIN 14.2 HEMATOCRIT 41.8 PLATELET [id number] SODIUM 143 POTASSIUM 4.2 CHLORIDE 104 ANION GAP 10 BUN 11 CREATININE 0.71 CALCIUM 8.8 ALBUMIN 3.8 TSH 0.78 LDL 71 HDL 50 TRIGLYCERIDES 111 URINE TOX SCREEN POSITIVE CANNABIS AND AMPHETAMINES URINALYSIS NEGATIVE Appearnace: Other (APPROPRIATE. AVERAGE HIGH AVERAGE WEIGHT MALE.WEARING STREET CLOTHING.BALD HEAD) Speech: Other (INTERMITTENT) Eye Contact: Normal Motor Activity: Normal Affect: Constricted Orientation Impairment: None Memory Impairment: None Attention: Normal Hallucinations: None Other: None Suicidality: None Homicidality: None Delusions: None Behavior: Cooperative Insight: Fair Judgment: Fair Treatment ABILIFY 30 MG P.O. DAILY SEROQUEL 550 MG P.O. Q.H.S. TRAZODONE 200 MG P.O. Q.H.S. SENNA 8.6 MG ONE TAB P.O. Q.H.S. ATIVAN 1 MG P.O. Q.6 PRN NEEDED FOR ANXIETY Monitoring by Staff, Milieu, Group, and Individual counseling as needed -- According to the [place] Suicide Assessment the above named patient is on Q15 MINUTE CHECKS. LPS CONSERVED Total time spent 25 minutes on REVIEW OF Clinical notes [X ] RN notes [X] PCT documentation [X] SW notes Labs [ X] Medications [X] Care trends/care activity [X] Vitals [X] DISCUSSION WITH toll bridge operator [X] Staff SW Treatment Team [X] Discharge UNSURE AT THIS TIME. PATIENT IS LPS CONSERVED AWAITING PLACEMENT. CODING VISIT-PSYCHIATRY Date of Service: Nov 16, 2024 Billing Provider: KARIS HALLMAN APRN Psych Common Visit Codes: [id number] INP/OBS CARE(Low) Problem Qualifiers (1) Schizophrenia: Qualified Codes: F20.9 - Schizophrenia, unspecified KARIS HALLMAN APRN Nov 16, 2024 05:21
[2024-11-16 07:00] VITALS: RESP 16; O2SAT 98
[2024-11-16 08:00] VITALS: BP 103/49; PULSE 66; RESP 16; TEMP 97.8; O2SAT 98
[2024-11-16 19:36] VITALS: RESP 16; O2SAT 98
[2024-11-16 19:37] VITALS: BP 111/60; PULSE 71; RESP 16; TEMP 97.7; O2SAT 98
--- NOTE | 2024-11-17 06:38 | PROGRESS NOTE ---
Progress Note Dictate Providers to CC ~ Central Line/PICC still needed: N\\A Antibiotic Ordered?: No MRSA Education MRSA Education Provided to pt: No Objective Vitals Vital Signs Date Time Temp Pulse Resp B/P (MAP) Pulse Ox O2 Delivery O2 Flow Rate FiO2 11/16/24 19:37 97.7 71 16 111/60 (77) 98 Room Air Counseling Services Smoking & Tobacco Cessation: > 10 Minutes Problem\\Assessment\\Plan Problems/Diagnosis: (1) Gravely disabled (2) Schizophrenia Psychiatrist's Progress Note Date of Service: Nov 17, 2024 Notes CHART REVIEW Pt is a 24-year-old single male who is currently conserved in [facility] and his conservator is Yocasta Karel. Pt was recently at [facility] and was discharged in May 2024 and had placement at [facility] in [place]. 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 The pt is now at [facility] awaiting new placement. The pt reports that he felt he was doing well at his most recent placement and doesn't understand why he was moved out and why he likely cannot return. The pt reports that he was close to his dad and was getting visits and is worried he'll be moved to another facility with more restrictions. The pt appears upset and unable to process how the course of his actions led to where he's at now. The pt will likely be at [facility] until his conservator finds placement for him. ASSESSMENT The patient was interviewed in observation room. The patient was actively sitting in rec room. The patient endorses "okay." The patient endorses no worsening mental health symptoms. Denies SI. Denies HI. Denies AVH. Patient endorses adequate food intake food intake. The patient is stable no acute distress noted. The patient presents as calm, cooperative, and engaged during session. Per staff report patient is medication compliant. Per staff report no abnormal behaviors. Will continue daily assessment and adjusting treatment as needed. Closely monitor behavior and response to medication during hospitalization. Results Of any Diagn. Testing REVIEW OF LABS WBC 8.0 RBC 4.55 HEMOGLOBIN 14.2 HEMATOCRIT 41.8 PLATELET [id number] SODIUM 143 POTASSIUM 4.2 CHLORIDE 104 ANION GAP 10 BUN 11 CREATININE 0.71 CALCIUM 8.8 ALBUMIN 3.8 TSH 0.78 LDL 71 HDL 50 TRIGLYCERIDES 111 URINE TOX SCREEN POSITIVE CANNABIS AND AMPHETAMINES URINALYSIS NEGATIVE Appearnace: Other (APPROPRIATE. AVERAGE HIGH AVERAGE WEIGHT MALE.WEARING STREET CLOTHING.BALD HEAD) Speech: Other (CIRCUMSTANTIAL) Eye Contact: Normal Motor Activity: Normal Affect: Full Orientation Impairment: None Memory Impairment: None Attention: Normal Hallucinations: None Other: None Suicidality: None Homicidality: None Delusions: None Behavior: Cooperative Insight: Fair Judgment: Fair Treatment ABILIFY 30 MG P.O. DAILY SEROQUEL 550 MG P.O. Q.H.S. TRAZODONE 200 MG P.O. Q.H.S. SENNA 8.6 MG ONE TAB P.O. Q.H.S. ATIVAN 1 MG P.O. Q.6 PRN NEEDED FOR ANXIETY Monitoring by Staff, Milieu, Group, and Individual counseling as needed -- According to the [place] Suicide Assessment the above named patient is on Q15 MINUTE CHECKS. LPS CONSERVED Total time spent 35 minutes on REVIEW OF Clinical notes [X ] RN notes [X] PCT documentation [X] SW notes Labs [ X] Medications [X] Care trends/care activity [X] Vitals [X] DISCUSSION WITH supervisor bindery [X] Staff SW Treatment Team [X] Discharge UNSURE AT THIS TIME. PATIENT IS LPS CONSERVED AWAITING PLACEMENT. CODING VISIT-PSYCHIATRY Date of Service: Nov 17, 2024 Billing Provider: KARIS HALLMAN APRN Psych Common Visit Codes: [id number] INP/OBS CARE(Low) Problem Qualifiers (1) Schizophrenia: Qualified Codes: F20.9 - Schizophrenia, unspecified KARIS HALLMAN APRN Nov 17, 2024 06:38
[2024-11-17 07:00] VITALS: RESP 16; O2SAT 98
[2024-11-17 08:00] VITALS: BP 109/56; PULSE 61; RESP 16; TEMP 97.7; O2SAT 98
--- NOTE | 2024-11-17 17:42 | PROGRESS NOTE- Residence ---
Progress Note - Resident Providers to CC Resident Creating Document: TIM [facility] RES ~ Antibiotic Timeout Antibiotic Ordered?: No Subjective Patient was seen and examined at bedside, denied any new medical symptoms. Objective Vital Signs Date Time Temp Pulse Resp B/P (MAP) Pulse Ox O2 Delivery O2 Flow Rate FiO2 11/17/24 08:00 97.7 61 16 109/56 (73) 98 Room Air General: Well alert, well oriented. HEENT: Conjunctive are pink, sclerae clear, no icterus, Neck: Supple, no JVD, no lymphadenopathy and thyromegaly. Lungs:Equal air entry on both lungs, no additional sounds Heart: S1-S2 regular sinus rhythm and, regular rate, no gallops, no rubs, no murmurs Abdomen: Bowel sounds present, soft, nontender, no guarding, no rigidity Extremities: No obvious deformities, no pitting edema bilaterally, capillary refill intact, WATER TAXI CAPTAIN: No focal neurological deficits, no motor and sensory weakness in all 4 extremities, could move all 4 extremities Musculoskeletal: No joint swelling, deformities, inflammations, and no scoliosis and back tenderness Skin: No active skin lesions and rashes Assessment Assessment A 24-year-old single male who was transferred from [place] for behavior rehabilitation for his behavior issues and substance abuse history was admitted for further management. Plan Plan Schizophrenia Management as per Psychiatry. Substance use history Urine toxicology screen positive for cannabinoids and methamphetamines. Management as per Psychiatry. Substance use navigator and dialysis social worker consulted. Dislocation of his right wrist Wrist x-ray: There is no evidence of an acute fracture, dislocation, blastic, or lytic lesions. Tim Parish M.D PGY2 Date of Service: Nov 17, 2024 Billing Provider: YAMIL VEGA MD Common Visit Codes: [id number] INP/OBS CARE(MOD) TIM [facility] RES Nov 17, 2024 17:42 YAMIL VEGA MD Nov 17, 2024 20:19
[2024-11-17 19:00] VITALS: RESP 18; O2SAT 97
[2024-11-17 20:00] VITALS: BP 117/67; PULSE 83; RESP 18; TEMP 98.1; O2SAT 97
[2024-11-18 07:42] VITALS: RESP 14; O2SAT 98
[2024-11-18 08:09] VITALS: BP 97/71; PULSE 60; RESP 14; TEMP 97.2; O2SAT 98
--- NOTE | 2024-11-18 10:39 | PROGRESS NOTE ---
Progress Note Dictate Providers to CC ~ Central Line/PICC still needed: N\\A Antibiotic Ordered?: No MRSA Education MRSA Education Provided to pt: No Objective Vitals Vital Signs Date Time Temp Pulse Resp B/P (MAP) Pulse Ox O2 Delivery O2 Flow Rate FiO2 11/18/24 08:09 97.2 60 14 97/71 (80) 98 Room Air Counseling Services Smoking & Tobacco Cessation: 3-10 Minutes Problem\\Assessment\\Plan Problems/Diagnosis: (1) Gravely disabled (2) Schizophrenia Psychiatrist's Progress Note Date of Service: Nov 18, 2024 Notes CHART REVIEW Pt is a 24-year-old single male who is currently conserved in [facility] and his conservator is Yocasta Karel. Pt was recently at [facility] and was discharged in May 2024 and had placement at [facility] in [place]. 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 The pt is now at [facility] awaiting new placement. The pt reports that he felt he was doing well at his most recent placement and doesn't understand why he was moved out and why he likely cannot return. The pt reports that he was close to his dad and was getting visits and is worried he'll be moved to another facility with more restrictions. The pt appears upset and unable to process how the course of his actions led to where he's at now. The pt will likely be at [facility] until his conservator finds placement for him. ASSESSMENT The patient was interviewed in observation room. The patient was actively walking in hallway. The patient endorses "I'm doing good." "My is on vacation so I probably will not hear anything to next week." The patient endorses no worsening mental health symptoms. Denies SI. Denies HI. Denies AVH. Patient endorses adequate food intake food intake. The patient reports last BM was yesterday. The patient is stable no acute distress noted. The patient presents as calm, cooperative, and engaged during session. Per staff report patient is medication compliant. Per staff report no abnormal behaviors. Will continue daily assessment and adjusting treatment as needed. Closely monitor behavior and re sponse to medication during hospitalization. Results Of any Diagn. Testing REVIEW OF LABS WBC 8.0 RBC 4.55 HEMOGLOBIN 14.2 HEMATOCRIT 41.8 PLATELET [id number] SODIUM 143 POTASSIUM 4.2 CHLORIDE 104 ANION GAP 10 BUN 11 CREATININE 0.71 CALCIUM 8.8 ALBUMIN 3.8 TSH 0.78 LDL 71 HDL 50 TRIGLYCERIDES 111 URINE TOX SCREEN POSITIVE CANNABIS AND AMPHETAMINES URINALYSIS NEGATIVE Appearnace: Other (APPROPRIATE. AVERAGE HIGH AVERAGE WEIGHT MALE.WEARING STREET CLOTHING.BALD HEAD) Speech: Other (CIRCUMSTANTIAL) Eye Contact: Other (INTERMITTENT) Motor Activity: Normal Affect: Full Orientation Impairment: None Memory Impairment: None Attention: Normal Hallucinations: None Other: None Suicidality: None Homicidality: None Delusions: None Behavior: Cooperative Insight: Fair Judgment: Fair Treatment ABILIFY 30 MG P.O. DAILY SEROQUEL 550 MG P.O. Q.H.S. TRAZODONE 200 MG P.O. Q.H.S. SENNA 8.6 MG ONE TAB P.O. Q.H.S. ATIVAN 1 MG P.O. Q.6 PRN NEEDED FOR ANXIETY Monitoring by Staff, Milieu, Group, and Individual counseling as needed -- According to the [place] Suicide Assessment the above named patient is on Q15 MINUTE CHECKS. LPS CONSERVED Total time spent 25 minutes on REVIEW OF Clinical notes [X ] RN notes [X] PCT documentation [X] SW notes Labs [ X] Medications [X] Care trends/care activity [X] Vitals [X] DISCUSSION WITH intermediate manager [X] Staff SW Treatment Team [X] Discharge UNSURE AT THIS TIME. PATIENT IS LPS CONSERVED AWAITING PLACEMENT. CODING VISIT-PSYCHIATRY Date of Service: Nov 18, 2024 Billing Provider: KARIS HALLMAN APRN Psych Common Visit Codes: [id number] INP/OBS CARE(Low) Problem Qualifiers (1) Schizophrenia: Qualified Codes: F20.9 - Schizophrenia, unspecified KARIS HALLMAN APRN Nov 18, 2024 10:39
[2024-11-18 19:00] VITALS: RESP 16; O2SAT 97
[2024-11-18 19:27] VITALS: BP 119/68; PULSE 79; RESP 16; TEMP 98; O2SAT 97
[2024-11-19 07:00] VITALS: RESP 16; O2SAT 97
[2024-11-19 08:00] VITALS: BP 93/45; PULSE 63; RESP 16; TEMP 98; O2SAT 97
--- NOTE | 2024-11-19 13:33 | PROGRESS NOTE ---
Progress Note Dictate Providers to CC ~ Central Line/PICC still needed: N\\A Antibiotic Ordered?: N/A MRSA Education MRSA Education Provided to pt: N/A Objective Vitals Vital Signs Date Time Temp Pulse Resp B/P (MAP) Pulse Ox O2 Delivery O2 Flow Rate FiO2 11/19/24 08:00 98.0 63 16 93/45 (61) 97 Room Air Psychiatrist's Progress Note Notes CHART REVIEW Pt is a 24-year-old single male who is currently conserved in [facility] and his conservator is Yocasta Vinson. Pt was recently at [facility] and was discharged in May 2024 and had placement at [facility] in [place]. 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 The pt is now at [facility] awaiting new placement. The pt reports that he felt he was doing well at his most recent placement and doesn't understand why he was moved out and why he likely cannot return. The pt reports that he was close to his dad and was getting visits and is worried he'll be moved to another facility with more restrictions. The pt appears upset and unable to process how the course of his actions led to where he's at now. The pt will likely be at [facility] until his conservator finds placement for him. ASSESSMENT The patient was interviewed in observation room. The patient was actively [facility]ry in [facility]. The patient endorses "I'm doing good." "my conservator is on vacation for a week since Wednesday I have nothing new. The patient endorses no worsening mental health symptoms. Denies SI. Denies HI. Denies AVH. Patient endorses adequate food intake food intake. The patient is stable no acute distress noted. The patient presents as calm, cooperative, and engaged during session. Per staff report patient is medication compliant. Per staff report no abnormal behaviors. Will continue daily assess ment and adjusting treatment as needed. Closely monitor behavior and response to medication during hospitalization. Results Of any Diagn. Testing WBC 8.0 RBC 4.55 HEMOGLOBIN 14.2 HEMATOCRIT 41.8 PLATELET [id number] SODIUM 143 POTASSIUM 4.2 CHLORIDE 104 ANION GAP 10 BUN 11 CREATININE 0.71 CALCIUM 8.8 ALBUMIN 3.8 TSH 0.78 LDL 71 HDL 50 TRIGLYCERIDES 111 URINE TOX SCREEN POSITIVE CANNABIS AND AMPHETAMINES URINALYSIS NEGATIVE Appearnace: Neat Speech: Other (Circumstantial) Eye Contact: Normal Motor Activity: Normal Affect: Constricted Orientation Impairment: None Memory Impairment: None Attention: Normal Hallucinations: None Other: None Suicidality: None Homicidality: None Delusions: None Behavior: Cooperative Insight: Fair Judgment: Fair Treatment ABILIFY 30 MG P.O. DAILY SEROQUEL 550 MG P.O. Q.H.S. TRAZODONE 200 MG P.O. Q.H.S. SENNA 8.6 MG ONE TAB P.O. Q.H.S. ATIVAN 1 MG P.O. Q.6 PRN NEEDED FOR ANXIETY Monitoring by Staff, Milieu, Group, and Individual counseling as needed -- According to the [place] Suicide Assessment the above named patient is on Q15 MINUTE CHECKS. LPS CONSERVED Total time spent 25 minutes on REVIEW OF Clinical notes [X ] RN notes [X] PCT documentation [X] SW notes Labs [ X] Medications [X] Care trends/care activity [X] Vitals [X] DISCUSSION WITH food concession manager [X] Discharge UNSURE AT THIS TIME. PATIENT IS LPS CONSERVED AWAITING PLACEMENT. CODING VISIT-PSYCHIATRY Date of Service: Nov 19, 2024 Billing Provider: BEATRIS VICTORIA APRN Psych Common Visit Codes: [id number] INP/OBS CARE(Mod) BEATRIS VICTORIA APRN Nov 19, 2024 13:33
[2024-11-19 19:00] VITALS: BP 125/69; PULSE 91; RESP 16; TEMP 98.5; O2SAT 100
--- NOTE | 2024-11-19 19:44 | PROGRESS NOTE ---
Daily Progress Note Providers to CC ~ Antibiotic Timeout Antibiotic Ordered?: No Subjective patient looks Comfortable denies any concerns ambulating well passed stools, no other new concerns Objective Vital Signs Date Time Temp Pulse Resp B/P (MAP) Pulse Ox O2 Delivery O2 Flow Rate FiO2 11/19/24 08:00 98.0 63 16 93/45 (61) 97 Room Air General-patient not in any acute distress, awake , age-appropriate, looks comfortable HEENT-atraumatic normocephalic, neck supple without elevated JVD, No ly mphadenopathy bilaterally. Eyes-no icterus or pallor seen in eyes Chest-clear to auscultation bilaterally, breathing nonlabored no tachypnea, no wheezing, no crepitation, no crackles. Heart-S1-S2 normal, regular heart rate no murmur Abdomen bowel sounds positive on auscultation, soft nondistended nontender no guarding, no rigidity Skin no active skin rash Neurology-grossly intact, nonfocal alert awake oriented Extremity- no pedal edema able to move all 4 extremities Psychiatry - patient is not confused or agitated cooperated during physical examination Problem\Assessment\Plan Assessment/plan Schizophrenia in exacerbation Management as per Psychiatry. Substance use history Urine toxicology screen positive for cannabinoids and methamphetamines. Management as per Psychiatry. Substance use navigator and social work lecturer. Labs reviewed. T Disposition: Hospitalist team will continue to follow the patient during the course of his hospital stay. Date of Service: Nov 19, 2024 Billing Provider: ALBARO BARNETT MD Common Visit Codes: [id number] INP/OBS CARE(LOW) ALBARO BARNETT MD Nov 19, 2024 19:44
[2024-11-20 07:00] VITALS: RESP 12; O2SAT 98
[2024-11-20 08:00] VITALS: BP 128/60; PULSE 83; RESP 12; TEMP 98.8; O2SAT 97
--- NOTE | 2024-11-20 09:52 | PROGRESS NOTE ---
Progress Note Dictate Providers to CC ~ Central Line/PICC still needed: N\\A Antibiotic Ordered?: No MRSA Education MRSA Education Provided to pt: No Objective Vitals Vital Signs Date Time Temp Pulse Resp B/P (MAP) Pulse Ox O2 Delivery O2 Flow Rate FiO2 11/20/24 08:00 98.8 83 12 128/60 (82) 97 Room Air Counseling Services Smoking & Tobacco Cessation: > 10 Minutes Problem\\Assessment\\Plan Problems/Diagnosis: (1) Gravely disabled (2) Schizophrenia Psychiatrist's Progress Note Date of Service: Nov 20, 2024 Notes CHART REVIEW Pt is a 24-year-old single male who is currently conserved in [facility] and his conservator is Yocasta Karel. Pt was recently at [facility] and was discharged in May 2024 and had placement at [facility] in [place]. 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 The pt is now at [facility] awaiting new placement. The pt reports that he felt he was doing well at his most recent placement and doesn't understand why he was moved out and why he likely cannot return. The pt reports that he was close to his dad and was getting visits and is worried he'll be moved to another facility with more restrictions. The pt appears upset and unable to process how the course of his actions led to where he's at now. The pt will likely be at [facility] until his conservator finds placement for him. ASSESSMENT The patient was interviewed in observation room. The patient was actively resting in bed with eyes open. The patient endorses "good." The patient endorses no worsening mental health symptoms. Denies SI. Denies HI. Denies AVH. Patient endorses adequate food intake food intake. The patient reports last BM was yesterday. The patient is stable no acute distress noted. The patient presents as calm, cooperative, and engaged during session. Per staff report patient is medication compliant. Per staff report no abnormal behaviors. Will continue daily assessment and adjusting treatment as needed. Closely monitor behavior and response to medication during hospitalization. Results Of any Diagn. Testing REVIEW OF LABS WBC 8.0 RBC 4.55 HEMOGLOBIN 14.2 HEMATOCRIT 41.8 PLATELET [id number] SODIUM 143 POTASSIUM 4.2 CHLORIDE 104 ANION GAP 10 BUN 11 CREATININE 0.71 CALCIUM 8.8 ALBUMIN 3.8 TSH 0.78 LDL 71 HDL 50 TRIGLYCERIDES 111 URINE TOX SCREEN POSITIVE CANNABIS AND AMPHETAMINES URINALYSIS NEGATIVE Appearnace: Other (APPROPRIATE. AVERAGE HIGH AVERAGE WEIGHT MALE.WEARING STREET CLOTHING.BALD HEAD) Speech: Other (CIRCUMSTANTIAL) Eye Contact: Normal Motor Activity: Normal Affect: Full Orientation Impairment: None Memory Impairment: None Attention: Normal Hallucinations: None Other: None Suicidality: None Homicidality: None Delusions: None Behavior: Cooperative Insight: Fair Judgment: Fair Treatment ABILIFY 30 MG P.O. DAILY SEROQUEL 550 MG P.O. Q.H.S. TRAZODONE 200 MG P.O. Q.H.S. SENNA 8.6 MG ONE TAB P.O. Q.H.S. ATIVAN 1 MG P.O. Q.6 PRN NEEDED FOR ANXIETY Monitoring by Staff, Milieu, Group, and Individual counseling as needed -- According to the [place] Suicide Assessment the above named patient is on Q15 MINUTE CHECKS. LPS CONSERVED Total time spent 35 minutes on REVIEW OF Clinical notes [X ] RN notes [X] PCT documentation [X] SW notes Labs [ X] Medications [X] Care trends/care activity [X] Vitals [X] DISCUSSION WITH food safety officer [X] Staff SW Treatment Team [X] Discharge UNSURE AT THIS TIME. PATIENT IS LPS CONSERVED AWAITING PLACEMENT. CODING VISIT-PSYCHIATRY Date of Service: Nov 20, 2024 Billing Provider: KARIS HALLMAN APRN Psych Common Visit Codes: [id number] INP/OBS CARE(Low) Problem Qualifiers (1) Schizophrenia: Qualified Codes: F20.9 - Schizophrenia, unspecified KARIS HALLMAN APRN Nov 20, 2024 09:52
[2024-11-20 19:00] VITALS: RESP 16; O2SAT 100
[2024-11-20 20:00] VITALS: BP 120/71; PULSE 88; RESP 16; TEMP 97.7; O2SAT 100
[2024-11-21 08:00] VITALS: BP 106/56; PULSE 62; RESP 16; TEMP 97.5; O2SAT 100
[2024-11-21 13:19] VITALS: RESP 16; O2SAT 100
--- NOTE | 2024-11-21 14:37 | PROGRESS NOTE ---
Progress Note Dictate Providers to CC ~ Central Line/PICC still needed: N\\A Antibiotic Ordered?: No MRSA Education MRSA Education Provided to pt: No Objective Vitals Vital Signs Date Time Temp Pulse Resp B/P (MAP) Pulse Ox O2 Delivery O2 Flow Rate FiO2 11/21/24 13:19 16 100 Room Air 11/21/24 08:00 97.5 62 106/56 (73) Problem\\Assessment\\Plan Problems/Diagnosis: (1) Gravely disabled (2) Schizophrenia Psychiatrist's Progress Note Date of Service: Nov 21, 2024 Notes CHART REVIEW Pt is a 24-year-old single male who is currently conserved in [facility] and his conservator is Yocasta Karel. Pt was recently at [facility] and was discharged in May 2024 and had placement at [facility] in [place]. 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 The pt is now at [facility] awaiting new placement. The pt reports that he felt he was doing well at his most recent placement and doesn't understand why he was moved out and why he likely cannot return. The pt reports that he was close to his dad and was getting visits and is worried he'll be moved to another facility with more restrictions. The pt appears upset and unable to process how the course of his actions led to where he's at now. The pt will likely be at [facility] until his conservator finds placement for him. ASSESSMENT The patient was interviewed in observation room. The patient was actively sitting in rec room. The patient endorses "I am doing good." "Just waiting to speak with my conservator to see if she felt me a new place, yet." The patient endorses no worsening mental health symptoms. Denies SI. Denies HI. Denies AVH. Patient endorses adequate food intake food intake. The patient reports last BM was yesterday. The patient is stable no acute distress noted. The patient presents as calm, cooperative, and engaged during session. Per staff report patient is medication compliant. Per staff report no abnormal behaviors. Will continue daily ass essment and adjusting treatment as needed. Closely monitor behavior and response to medication during hospitalization. Results Of any Diagn. Testing REVIEW OF LABS WBC 8.0 RBC 4.55 HEMOGLOBIN 14.2 HEMATOCRIT 41.8 PLATELET [id number] SODIUM 143 POTASSIUM 4.2 CHLORIDE 104 ANION GAP 10 BUN 11 CREATININE 0.71 CALCIUM 8.8 ALBUMIN 3.8 TSH 0.78 LDL 71 HDL 50 TRIGLYCERIDES 111 URINE TOX SCREEN POSITIVE CANNABIS AND AMPHETAMINES URINALYSIS NEGATIVE Appearnace: Other (APPROPRIATE. AVERAGE HIGH AVERAGE WEIGHT MALE.WEARING STREET CLOTHING.BALD HEAD) Speech: Other (CIRCUMSTANTIAL) Eye Contact: Normal Motor Activity: Normal Affect: Full Orientation Impairment: None Memory Impairment: None Attention: Normal Hallucinations: None Other: None Suicidality: None Homicidality: None Delusions: None Behavior: Cooperative Insight: Fair Judgment: Fair Treatment ABILIFY 30 MG P.O. DAILY SEROQUEL 550 MG P.O. Q.H.S. TRAZODONE 200 MG P.O. Q.H.S. SENNA 8.6 MG ONE TAB P.O. Q.H.S. ATIVAN 1 MG P.O. Q.6 PRN NEEDED FOR ANXIETY Monitoring by Staff, Milieu, Group, and Individual counseling as needed -- According to the [place] Suicide Assessment the above named patient is on Q15 MINUTE CHECKS. LPS CONSERVED Total time spent 25 minutes on REVIEW OF Clinical notes [X ] RN notes [X] PCT documentation [X] SW notes Labs [ X] Medications [X] Care trends/care activity [X] Vitals [X] DISCUSSION WITH director special education [X] Staff SW Treatment Team [X] Discharge UNSURE AT THIS TIME. PATIENT IS LPS CONSERVED AWAITING PLACEMENT. CODING VISIT-PSYCHIATRY Date of Service: Nov 21, 2024 Billing Provider: KARIS HALLMAN APRN Psych Common Visit Codes: [id number] INP/OBS CARE(Low) Problem Qualifiers (1) Schizophrenia: Qualified Codes: F20.9 - Schizophrenia, unspecified KARIS HALLMAN APRN Nov 21, 2024 14:37
--- NOTE | 2024-11-21 14:42 | PROGRESS NOTE- Residence ---
Progress Note - Resident Providers to CC Resident Creating Document: ENMANUEL GARCIAS RES ~ Antibiotic Timeout Antibiotic Ordered?: No Subjective Patient was seen and examined at bedside, denied any new medical symptoms. Objective Vital Signs Date Time Temp Pulse Resp B/P (MAP) Pulse Ox O2 Delivery O2 Flow Rate FiO2 11/21/24 13:19 16 100 Room Air 11/21/24 08:00 97.5 62 106/56 (73) Assessment Assessment A 24-year-old single male who was transferred from [place] for behavior rehabilitation for his behavior issues and substance abuse history was admitted for further management. Plan Plan Schizophrenia Management as per Psychiatry. Substance use history Urine toxicology screen positive for cannabinoids and methamphetamines. Management as per Psychiatry. Substance use navigator and social service worker consulted. Pain in right wrist - resolved Wrist x-ray: There is no evidence of an acute fracture, dislocation, blastic, or lytic lesions. Disposition: Hospitalist team will follow the the patient as per protocol. Date of Service: Nov 21, 2024 Billing Provider: YAMIL VEGA MD Common Visit Codes: [id number] INP/OBS CARE(MOD) ENMANUEL GARCIAS RES Nov 21, 2024 14:42 YAMIL VEGA MD Nov 22, 2024 19:55
[2024-11-21 19:00] VITALS: RESP 18; O2SAT 99
[2024-11-21 19:26] VITALS: BP 115/76; PULSE 94; RESP 18; TEMP 96.9; O2SAT 99
[2024-11-22 07:00] VITALS: RESP 16; O2SAT 98
[2024-11-22 07:30] VITALS: BP 114/70; PULSE 67; RESP 16; TEMP 97.6; O2SAT 98
--- NOTE | 2024-11-22 11:53 | PROGRESS NOTE ---
Progress Note Dictate Providers to CC ~ Central Line/PICC still needed: N\\A Antibiotic Ordered?: No MRSA Education MRSA Education Provided to pt: No Objective Vitals Vital Signs Date Time Temp Pulse Resp B/P (MAP) Pulse Ox O2 Delivery O2 Flow Rate FiO2 11/21/24 19:26 96.9 94 18 115/76 (89) 99 Room Air Counseling Services Smoking & Tobacco Cessation: > 10 Minutes Problem\\Assessment\\Plan Problems/Diagnosis: (1) Gravely disabled (2) Schizophrenia Psychiatrist's Progress Note Date of Service: Nov 22, 2024 Notes CHART REVIEW Pt is a 24-year-old single male who is currently conserved in [facility] and his conservator is Yocasta Karel. Pt was recently at [facility] and was discharged in May 2024 and had placement at [facility] in [place]. 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 The pt is now at [facility] awaiting new placement. The pt reports that he felt he was doing well at his most recent placement and doesn't understand why he was moved out and why he likely cannot return. The pt reports that he was close to his dad and was getting visits and is worried he'll be moved to another facility with more restrictions. The pt appears upset and unable to process how the course of his actions led to where he's at now. The pt will likely be at [facility] until his conservator finds placement for him. ASSESSMENT The patient was interviewed in observation room. The patient was actively sitting in rec room. The patient endorses "I am doing good." "Just waiting to speak with my conservator to see if she felt me a new place, yet." The patient endorses no worsening mental health symptoms. Denies SI. Denies HI. Denies AVH. Patient endorses adequate food intake food intake. The patient reports last BM was yesterday. The patient is stable no acute distress noted. The patient presents as calm, cooperative, and engaged during session. Per staff report patient is medication compliant. Per staff report no abnormal behaviors. Will continue daily assessment and adjusting treatment as needed. Closely monitor behavior and response to medication during hospitalization. Appearnace: Other (APPROPRIATE. AVERAGE HIGH AVERAGE WEIGHT MALE.WEARING STREET CLOTHING.BALD HEAD) Speech: Other (CIRCUMSTANTIAL) Eye Contact: Normal Motor Activity: Normal Affect: Full Orientation Impairment: None Memory Impairment: None Attention: Normal Hallucinations: None Other: None Suicidality: None Homicidality: None Delusions: None Behavior: Cooperative Insight: Fair Judgment: Fair Results Of any Diagn. Testing REVIEW OF LABS WBC 8.0 RBC 4.55 HEMOGLOBIN 14.2 HEMATOCRIT 41.8 PLATELET [id number] SODIUM 143 POTASSIUM 4.2 CHLORIDE 104 ANION GAP 10 BUN 11 CREATININE 0.71 CALCIUM 8.8 ALBUMIN 3.8 TSH 0.78 LDL 71 HDL 50 TRIGLYCERIDES 111 URINE TOX SCREEN POSITIVE CANNABIS AND AMPHETAMINES URINALYSIS NEGATIVE Appearnace: Other (APPROPRIATE. AVERAGE HIGH AVERAGE WEIGHT MALE.WEARING STREET CLOTHING.BALD HEAD)) Speech: Other (CIRCUMSTANTIAL) Eye Contact: Normal Motor Activity: Normal Affect: Constricted Mood: Euthymic Orientation Impairment: None Memory Impairment: None Attention: Normal Hallucinations: None Other: None Suicidality: None Homicidality: None Delusions: None Behavior: Cooperative Insight: Fair Judgment: Fair Treatment ABILIFY 30 MG P.O. DAILY SEROQUEL 550 MG P.O. Q.H.S. TRAZODONE 200 MG P.O. Q.H.S. SENNA 8.6 MG ONE TAB P.O. Q.H.S. ATIVAN 1 MG P.O. Q.6 PRN NEEDED FOR ANXIETY Monitoring by Staff, Milieu, Group, and Individual counseling as needed -- According to the [place] Suicide Assessment the above named patient is on Q15 MINUTE CHECKS. LPS CONSERVED Total time spent 40 minutes on REVIEW OF Clinical notes [X ] RN notes [X] PCT documentation [X] SW notes Labs [ X] Medications [X] Care trends/care activity [X] Vitals [X] DISCUSSION WITH apple peeler operator [X] Staff SW Treatment Team [X] . Discharge UNSURE AT THIS TIME. PATIENT IS LPS CONSERVED AWAITING PLACEMENT CODING VISIT-PSYCHIATRY Date of Service: Nov 22, 2024 Billing Provider: KARIS HALLMAN APRN Psych Common Visit Codes: [id number] INP/OBS CARE(Low) Problem Qualifiers (1) Schizophrenia: Qualified Codes: F20.9 - Schizophrenia, unspecified KARIS HALLMAN APRN Nov 22, 2024 11:53
[2024-11-22 19:38] VITALS: RESP 16; O2SAT 100
[2024-11-22 19:39] VITALS: BP 127/74; PULSE 95; RESP 16; TEMP 97.8; O2SAT 100
[2024-11-23 07:00] VITALS: RESP 16; O2SAT 96
[2024-11-23 07:30] VITALS: BP 118/61; PULSE 59; RESP 16; TEMP 97.5; O2SAT 96
--- NOTE | 2024-11-23 13:36 | PROGRESS NOTE ---
Progress Note Dictate Providers to CC ~ Central Line/PICC still needed: N\\A Antibiotic Ordered?: No MRSA Education MRSA Education Provided to pt: No Objective Vitals Vital Signs Date Time Temp Pulse Resp B/P (MAP) Pulse Ox O2 Delivery O2 Flow Rate FiO2 11/23/24 07:30 97.5 59 16 118/61 (80) 96 Room Air Problem\\Assessment\\Plan Problems/Diagnosis: (1) Gravely disabled (2) Schizophrenia Psychiatrist's Progress Note Date of Service: Nov 23, 2024 Notes CHART REVIEW Pt is a 24-year-old single male who is currently conserved in [facility] and his conservator is Yocasta Karel. Pt was recently at [facility] and was discharged in May 2024 and had placement at [facility] in [place]. 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 The pt is now at [facility] awaiting new placement. The pt reports that he felt he was doing well at his most recent placement and doesn't understand why he was moved out and why he likely cannot return. The pt reports that he was close to his dad and was getting visits and is worried he'll be moved to another facility with more restrictions. The pt appears upset and unable to process how the course of his actions led to where he's at now. The pt will likely be at [facility] until his conservator finds placement for him. ASSESSMENT The patient was interviewed in observation room. The patient was actively sitting in rec room engaging with peers. The patient endorses "Good." The patien t endorses no worsening mental health symptoms. Denies SI. Denies HI. Denies AVH. Patient endorses adequate food intake food intake. The patient reports last BM was yesterday. The patient is stable no acute distress noted. The patient presents as calm, cooperative, and engaged during session. Per staff report patient is medication compliant. Per staff report no abnormal behaviors. Will continue daily assessment and adjusting treatment as needed. Closely monitor behavior and response to medication during hospitalization. Appearnace: Other (APPROPRIATE. AVERAGE HIGH AVERAGE WEIGHT MALE.WEARING STREET CLOTHING.BALD HEAD) Speech: Normal Eye Contact: Normal Motor Activity: Normal Affect: Full Orientation Impairment: None Memory Impairment: None Attention: Normal Hallucinations: None Other: None Suicidality: None Homicidality: None Delusions: None Behavior: Cooperative Insight: Fair Judgment: Fair Treatment ABILIFY 30 MG P.O. DAILY SEROQUEL 550 MG P.O. Q.H.S. TRAZODONE 200 MG P.O. Q.H.S. SENNA 8.6 MG ONE TAB P.O. Q.H.S. ATIVAN 1 MG P.O. Q.6 PRN NEEDED FOR ANXIETY Monitoring by Staff, Milieu, Group, and Individual counseling as needed -- Accor ding to the [place] Suicide Assessment the above named patient is on Q15 MINUTE CHECKS. LPS CONSERVED Total time spent 25 minutes on REVIEW OF Clinical notes [X ] RN notes [X] PCT documentation [X] SW notes Labs [ X] Medications [X] Care trends/care activity [X] Vitals [X] DISCUSSION WITH charge machine operator [X] Staff SW Treatment Team [X] Discharge UNSURE AT THIS TIME. PATIENT IS LPS CONSERVED AWAITING PLACEMENT CODING VISIT-PSYCHIATRY Date of Service: Nov 23, 2024 Billing Provider: KARIS HALLMAN APRN Psych Common Visit Codes: [id number] INP/OBS CARE(Low) Problem Qualifiers (1) Schizophrenia: Qualified Codes: F20.9 - Schizophrenia, unspecified KARIS HALLMAN APRN Nov 23, 2024 13:36
--- NOTE | 2024-11-23 17:54 | PROGRESS NOTE- Residence ---
Progress Note - Resident Providers to CC Resident Creating Document: ENMANUEL GARCIAS RES ~ Antibiotic Timeout Antibiotic Ordered?: No Subjective Patient was seen and examined at bedside, denied any new medical symptoms. Objective Vital Signs Date Time Temp Pulse Resp B/P (MAP) Pulse Ox O2 Delivery O2 Flow Rate FiO2 11/23/24 07:30 97.5 59 16 118/61 (80) 96 Room Air Assessment Assessment A 24-year-old single male who was transferred from [place] for behavior rehabilitation for his behavior issues and substance abuse history was admitted for further management. Plan Plan Schizophrenia Management as per Psychiatry. Substance use history Urine toxicology screen positive for cannabinoids and methamphetamines. Management as per Psychiatry. Substance use navigator and criminal justice social worker consulted. Pain in right wrist - resolved Wrist x-ray: There is no evidence of an acute fracture, dislocation, blastic, or lytic lesions. Disposition: Hospitalist team will follow the the patient as per protocol. Date of Service: Nov 23, 2024 Billing Provider: YAMIL VEGA MD Common Visit Codes: [id number] INP/OBS CARE(MOD) ENMANUEL GARCIAS RES Nov 23, 2024 17:54 YAMIL VEGA MD Nov 27, 2024 11:14
[2024-11-23 19:00] VITALS: RESP 16; O2SAT 100
[2024-11-23 20:00] VITALS: BP 126/70; PULSE 80; RESP 16; TEMP 98.8; O2SAT 100
[2024-11-24 07:00] VITALS: BP 110/62; PULSE 61; RESP 16; TEMP 97.6; O2SAT 98
--- NOTE | 2024-11-24 07:37 | PROGRESS NOTE ---
Progress Note Dictate Providers to CC ~ Central Line/PICC still needed: N\\A Antibiotic Ordered?: No MRSA Education MRSA Education Provided to pt: No Objective Vitals Vital Signs Date Time Temp Pulse Resp B/P (MAP) Pulse Ox O2 Delivery O2 Flow Rate FiO2 11/23/24 20:00 98.8 80 16 126/70 (88) 100 Room Air Problem\\Assessment\\Plan Problems/Diagnosis: (1) Gravely disabled (2) Schizophrenia Psychiatrist's Progress Note Date of Service: Nov 24, 2024 Notes CHART REVIEW Pt is a 24-year-old single male who is currently conserved in [facility] and his conservator is Yocasta Vinson. Pt was recently at [facility] and was discharged in May 2024 and had placement at [facility] in [place]. 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 The pt is now at [facility] awaiting new placement. The pt reports that he felt he was doing well at his most recent placement and doesn't understand why he was moved out and why he likely cannot return. The pt reports that he was close to his dad and was getting visits and is worried he'll be moved to another facility with more restrictions. The pt appears upset and unable to process how the course of his actions led to where he's at now. The pt will likely be at [facility] until his conservator finds placement for him. ASSESSMENT The patient was interviewed in observation room. The patient was actively walking in the hallway with peers. The patient endorses "I am doing good." "I s till haven't heard from my conservator." The patient endorses no worsening mental health symptoms. Denies SI. Denies HI. Denies AVH. Patient endorses adequate food intake food intake. The patient reports last BM was yesterday. The patient is stable no acute distress noted. The patient presents as calm, cooperative, and engaged during session. Per staff report patient is medication compliant. Per staff report no abnormal behaviors. Will continue daily assessment and adjusting treatment as needed. Closely monitor behavior and response to medication during hospitalization. Appearnace: Other Speech: Other (CIRCUMSTANTIAL) Eye Contact: Normal Motor Activity: Normal Affect: Full Orientation Impairment: None Memory Impairment: None Attention: Normal Hallucinations: None Other: None Suicidality: None Homicidality: None Delusions: None Behavior: Cooperative Insight: Fair Judgment: Fair, Poor Treatment ABILIFY 30 MG P.O. DAILY SEROQUEL 550 MG P.O. Q.H.S. TRAZODONE 200 MG P.O. Q.H.S. SENNA 8.6 MG ONE TAB P.O. Q.H.S. ATIVAN 1 MG P.O. Q.6 PRN NEEDED FOR ANXIETY Monitoring by Staff, Milieu, Group, and Individual counseling as needed -- According to the [employer] Suicide Assessment the above named patient is on Q15 MINUTE CHECKS. LPS CONSERVED Total time spent 35 minutes on REVIEW OF Clinical notes [X ] RN notes [X] PCT documentation [X] SW notes Labs [ X] Medications [X] Care trends/care activity [X] Vitals [X] DISCUSSION WITH reading tutor [X] Staff SW Treatment Team [X] Discharge UNSURE AT THIS TIME. PATIENT IS LPS CONSERVED AWAITING PLACEMENT CODING VISIT-PSYCHIATRY Date of Service: Nov 24, 2024 Billing Provider: KARIS HALLMAN APRN Psych Common Visit Codes: [id number] INP/OBS CARE(Low) Problem Qualifiers (1) Schizophrenia: Qualified Codes: F20.9 - Schizophrenia, unspecified KARIS HALLMAN APRN Nov 24, 2024 07:37
[2024-11-24 08:00] VITALS: RESP 16; O2SAT 98
[2024-11-24 19:00] VITALS: RESP 17; O2SAT 98
[2024-11-24 20:00] VITALS: BP 143/76; PULSE 102; RESP 17; TEMP 98.2; O2SAT 98
[2024-11-25 07:00] VITALS: RESP 14; O2SAT 100
[2024-11-25 08:00] VITALS: BP 114/64; PULSE 63; RESP 12; TEMP 97.4; O2SAT 100
--- NOTE | 2024-11-25 12:12 | PROGRESS NOTE ---
Progress Note Dictate Providers to CC ~ Central Line/PICC still needed: N\\A Antibiotic Ordered?: N/A MRSA Education MRSA Education Provided to pt: N/A Objective Vitals Vital Signs Date Time Temp Pulse Resp B/P (MAP) Pulse Ox O2 Delivery O2 Flow Rate FiO2 11/25/24 08:00 97.4 63 12 114/64 (81) 100 Room Air Psychiatrist's Progress Note Date of Service: Nov 25, 2024 Notes CHART REVIEW Pt is a 24-year-old single male who is currently conserved in [facility] and his conservator is Yocasta Vinson. Pt was recently at [facility] and was discharged in May 2024 and had placement at [facility] in [place]. The pt recently had behavioral issues and r elapsed on Marijuana and Methamphetamine which made him lose his placement at the facility. The pt is now at [facility] awaiting new placement. The pt reports that he felt he was doing well at his most recent placement and doesn't understand why he was moved out and why he likely cannot return. The pt reports that he was close to his dad and was getting visits and is worried he'll be moved to another facility with more restrictions. The pt appears upset and unable to process how the course of his actions led to where he's at now. The pt will likely be at [facility] until his conservator finds placement for him. ASSESSMENT The patient was interviewed in observation room. The patient was actively walking in the hallway with peers. The patient endorses "I havent heard anything new, but I think Im almost getting out of here." "I'm going to change my life." "Im not going to use meth anymore because it worsens the voices. "The patient endorses no worsening mental health symptoms. Denies SI. Denies HI. Denies AVH. Patient endorses adequate food intake food intake. The patient reports last BM was yesterday. The patient is stable no acute distress noted. The patient presents as calm, cooperative, and engaged during session. Per staff report patient is medication compliant. Per staff report no abnormal behaviors. Will continue daily assessment and adjusting treatment as needed. Closely monitor behavior and response to medication during hospitalization. Appearnace: Neat Speech: Normal Eye Contact: Normal Motor Activity: Normal Affect: Full Mood: Euthymic Orientation Impairment: None Memory Impairment: None Attention: Normal Hallucinations: None Other: None Suicidality: None Homicidality: None Delusions: None Behavior: Cooperative Insight: Fair Judgment: Fair Treatment ABILIFY 30 MG P.O. DAILY SEROQUEL 550 MG P.O. Q.H.S. TRAZODONE 200 MG P.O. Q.H.S. SENNA 8.6 MG ONE TAB P.O. Q.H.S. ATIVAN 1 MG P.O. Q.6 PRN NEEDED FOR ANXIETY Monitoring by Staff, Milieu, Group, and Individual counseling as needed -- According to the [place] Suicide Assessment the above named patient is on Q15 MINUTE CHECKS. LPS CONSERVED Total time spent 35 minutes on REVIEW OF Clinical notes [X ] RN notes [X] PCT documentation [X] SW notes Labs [ X] Medications [X] Care trends/care activity [X] Vitals [X] DISCUSSION WITH computer engineering technician [X] Discharge UNSURE AT THIS TIME. PATIENT IS LPS CONSERVED AWAITING PLACEMENT CODING VISIT-PSYCHIATRY Date of Service: Nov 25, 2024 Billing Provider: BEATRIS VICTORIA APRN Psych Common Visit Codes: [id number] INP/OBS CARE(Mod) BEATRIS VICTORIA APRN Nov 25, 2024 12:12
[2024-11-25 19:00] VITALS: RESP 20; O2SAT 100
[2024-11-25 20:00] VITALS: BP 130/75; PULSE 75; RESP 20; TEMP 99.6; O2SAT 100
[2024-11-26 08:11] VITALS: BP 109/61; PULSE 63; RESP 14; TEMP 97.7; O2SAT 95
[2024-11-26 08:52] VITALS: RESP 16; O2SAT 95
--- NOTE | 2024-11-26 13:22 | PROGRESS NOTE ---
Progress Note Dictate Providers to CC ~ Central Line/PICC still needed: N\\A Antibiotic Ordered?: N/A MRSA Education MRSA Education Provided to pt: N/A Objective Vitals Vital Signs Date Time Temp Pulse Resp B/P (MAP) Pulse Ox O2 Delivery O2 Flow Rate FiO2 11/26/24 08:52 16 95 Room Air 11/26/24 08:11 97.7 63 109/61 (77) Psychiatrist's Progress Note Date of Service: Nov 26, 2024 Notes CHART REVIEW Pt is a 24-year-old single male who is currently conserved in [facility] and his conservator is Yocasta Vinson. Pt was recently at [facility] and was discharged in May 2024 and had placement at [facility] in [place]. 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 The pt is now at [facility] awaiting new placement. The pt reports that he felt he was doing well at his most recent placement and doesn't understand why he was moved out and why he likely cannot return. The pt reports that he was close to his dad and was getting visits and is worried he'll be moved to another facility with more restrictions. The pt appears upset and unable to process how the course of his actions led to where he's at now. The pt will likely be at [facility] until his conservator finds placement for him. ASSESSMENT The patient was interviewed in observation room. The patient was actively walking in the hallway with peers. The patient endorses " I only get the auditory hallucinations when IM on drugs or when i miss my meds." "My mood today is good," "I slept well last night."The patient endorses no worsening mental health symptoms. Denies SI. Denies HI. Denies AVH. Patient endorses adequate food intake food intake. The patient reports last BM was yesterday. The patient is stable no acute distress noted. The patient presents as calm, cooperative, and engaged during session. Per staff report patient is medication compliant. Per staff report no abnormal behaviors. Will continue daily assessment and adjusting treatment as needed. Closely monitor behavior and response to medication during hospitalization. Appearnace: Neat Speech: Normal Eye Contact: Intense Motor Activity: Normal Affect: Full Mood: Euthymic Orientation Impairment: None Memory Impairment: None Attention: Normal Hallucinations: None, Other (auditory hallucinations only happen when im on drugs, or i miss my meds.) Other: None Suicidality: None Homicidality: None Delusions: None Behavior: Cooperative, Guarded Insight: Fair, Poor Judgment: Fair, Poor Treatment ABILIFY 30 MG P.O. DAILY SEROQUEL 550 MG P.O. Q.H.S. TRAZODONE 200 MG P.O. Q.H.S. SENNA 8.6 MG ONE TAB P.O. Q.H.S. ATIVAN 1 MG P.O. Q.6 PRN NEEDED FOR ANXIETY Monitoring by Staff, Milieu, Group, and Individual counseling as needed -- According to the [place] Suicide Assessment the above named patient is on Q15 MINUTE CHECKS. LPS CONSERVED Total time spent 35 minutes on REVIEW OF Clinical notes [X ] RN notes [X] PCT documentation [X] SW notes Labs [ X] Medications [X] Care trends/care activity [X] Vitals [X] DISCUSSION WITH child adolescent care [X] Discharge UNSURE AT THIS TIME. PATIENT IS LPS CONSERVED AWAITING PLACEMENT CODING VISIT-PSYCHIATRY Date of Service: Nov 26, 2024 Billing Provider: BEATRIS VICTORIA APRN Psych Common Visit Codes: [id number] INP/OBS CARE(Mod) BEATRIS VICTORIA APRN Nov 26, 2024 13:22
--- NOTE | 2024-11-26 19:02 | PROGRESS NOTE- Residence ---
Progress Note - Resident Providers to CC Resident Creating Document: PHILLIP MEDINA, RES ~ Antibiotic Timeout Antibiotic Ordered?: No Subjective Patient was seen and examined at bedside, denied any new medical symptoms. Objective Vital Signs Date Time Temp Pulse Resp B/P (MAP) Pulse Ox O2 Delivery O2 Flow Rate FiO2 11/26/24 08:52 16 95 Room Air 11/26/24 08:11 97.7 63 109/61 (77) Awake , alert, and oriented x4, resting comfortably in the bed, in no acute distress HEENT: Atraumatic, normocephalic, EOMI, anicteric sclera ; pink conjunctiva Neck: Trachea midline. Supple, full range of motion, no JVD Cardiac: Regular rhythm, regular rate with no murmurs all over the precordium. Respiratory: Equal breath sounds bilaterally, no tachypnea, no wheezing ,rub or rales, Chest wall is symmetric and without deformity. Gastrointestinal: Abdomen symmetric, non-distended, soft, non-tender, normal bowel sounds x4 quadrant, normoactive, no hepatosplenomegaly Musculoskeletal: No pedal edema, no cyanosis Neurological: Speech is clear, alert, and oriented x 4. No motor or sensory deficit, deep tendon reflexes normal, cerebellar intact. Cranial nerves II-XII intact. Skin: Warm and dry Advance Care Planning Advanced Care plannin - 30 Minutes Assessment Assessment A 24-year-old single male who was transferred from [place] for behavior rehabilitation for his behavior issues and substance abuse history was admitted for further management. Plan Plan Schizophrenia Management as per Psychiatry. Substance use history Urine toxicology screen positive for cannabinoids and methamphetamines. Management as per Psychiatry. Substance use navigator and social services aide consulted. Pain in right wrist - resolved Wrist x-ray: There is no evidence of an acute fracture, dislocation, blastic, or lytic lesions. Disposition: Hospitalist team will follow the the patient as per protocol. Date of Service: Nov 26, 2024 Billing Provider: JOY NOLASCO MD Common Visit Codes: [id number] INP/OBS CARE(MOD) PHILLIP MEDINA, RES Nov 26, 2024 19:02 JOY NOLASCO MD Dec 11, 2024 14:36
[2024-11-26 19:40] VITALS: RESP 18; O2SAT 98
[2024-11-26 20:00] VITALS: BP 123/76; PULSE 94; RESP 18; TEMP 98.3; O2SAT 98
[2024-11-27 07:00] VITALS: RESP 16; O2SAT 97
[2024-11-27 08:00] VITALS: BP 105/60; PULSE 60; RESP 18; TEMP 98; O2SAT 97
[2024-11-27 19:00] VITALS: RESP 16; O2SAT 98
[2024-11-27 20:33] VITALS: BP 119/78; PULSE 101; RESP 16; TEMP 98.1; O2SAT 98
--- NOTE | 2024-11-27 20:33 | PROGRESS NOTE ---
Progress Note Dictate Providers to CC ~ Antibiotic Ordered?: No Objective Vitals Vital Signs Date Time Temp Pulse Resp B/P (MAP) Pulse Ox O2 Delivery O2 Flow Rate FiO2 11/27/24 19:00 16 98 Room Air 11/27/24 08:00 98.0 60 105/60 (75) Psychiatrist's Progress Note Date of Service: Nov 27, 2024 Notes CHART REVIEW Pt is a 24-year-old single male who is currently conserved in [facility] and his conservator is Yocasta Karel. Pt was recently at [facility] and was discharged in May 2024 and had placement at [facility] in [place]. 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 The pt is now at [facility] awaiting new placement. The pt reports that he felt he was doing well at his most recent placement and doesn't understand why he was moved out and why he likely cannot return. The pt reports that he was close to his dad and was getting visits and is worried he'll be moved to another facility with more restrictions. The pt appears upset and unable to process how the course of his actions led to where he's at now. The pt will likely be at [facility] until his conservator finds placement for him. ASSESSMENT The patient was interviewed in the conference room, In no distress, he is denying all psychiatric symptoms stating " I feel good" Patient is compliant with tx, no behavioral or safety concerns reported by staff. Patient is on LPS, awaiting placement. Will continue daily assessment and adjusting treatment as needed. Closely monitor behavior and response to medication during hospitalization. Mental Status Exam Appearance: Wearing scrubs Speech: Normal Eye Contact: good Motor Activity: Normal Affect: Full Mood: Euthymic Orientation Impairment: None Memory Impairment: None Attention: Normal Hallucinations: Denies Other: None Suicidality: None Homicidality: None Delusions: None Behavior: Cooperative, Guarded Insight: Fair, Poor Judgment: Fair, Poor Treatment ABILIFY 30 MG P.O. DAILY SEROQUEL 550 MG P.O. Q.H.S. TRAZODONE 200 MG P.O. Q.H.S. SENNA 8.6 MG ONE TAB P.O. Q.H.S. ATIVAN 1 MG P.O. Q.6 PRN NEEDED FOR ANXIETY Monitoring by Staff, Milieu, Group, and Individual counseling as needed -- According to the [place] Suicide Assessment the above named patient is on Q15 MINUTE CHECKS. LPS CONSERVED Total time spent 40 minutes on REVIEW OF Clinical notes [X ] RN notes [X] PCT documentation [X] SW notes Labs [ X] Medications [X] Care trends/care activity [X] Vitals [X] DISCUSSION WITH call center rn [X] Discharge UNSURE AT THIS TIME. PATIENT IS LPS CONSERVED AWAITING PLACEMENT CODING VISIT-PSYCHIATRY Date of Service: Nov 27, 2024 Billing Provider: DARYL DUBON DNP Psych Common Visit Codes: [id number] INP/OBS CARE(Mod) DARYL DUBON DNP Nov 27, 2024 20:33
[2024-11-28 07:00] VITALS: RESP 15; O2SAT 98
[2024-11-28 08:00] VITALS: BP 107/61; PULSE 58; RESP 15; TEMP 97.8; O2SAT 98
--- NOTE | 2024-11-28 17:09 | PROGRESS NOTE- Residence ---
Progress Note - Resident Providers to CC Resident Creating Document: PHILLIP MEDINA, RES ~ Antibiotic Timeout Antibiotic Ordered?: No Subjective Patient was seen and examined at bedside, denied any new medical symptoms. Objective Vital Signs Date Time Temp Pulse Resp B/P (MAP) Pulse Ox O2 Delivery O2 Flow Rate FiO2 11/28/24 08:00 97.8 58 15 107/61 (76) 98 Room Air Awake , alert, and oriented x4, resting comfortably in the bed, in no acute distress HEENT: Atraumatic, normocephalic, EOMI, anicteric sclera ; pink conjunctiva Neck: Trachea midline. Supple, full range of motion, no JVD Cardiac: Regular rhythm, regular rate with no murmurs all over the precordium. Respiratory: Equal breath sounds bilaterally, no tachypnea, no wheezing ,rub or rales, Chest wall is symmetric and without deformity. Gastrointestinal: Abdomen symmetric, non-distended, soft, non-tender, normal bowel sounds x4 quadrant, normoactive, no hepatosplenomegaly Musculoskeletal: No pedal edema, no cyanosis Neurological: Speech is clear, alert, and oriented x 4. No motor or sensory deficit, deep tendon reflexes normal, cerebellar intact. Cranial nerves II-XII intact. Skin: Warm and dry Advance Care Planning Advanced Care plannin - 30 Minutes Assessment Assessment A 24-year-old single male who was transferred from [place] for behavior rehabilitation for his behavior issues and substance abuse history was admitted for further management. Plan Plan Schizophrenia Management as per Psychiatry. Substance use history Urine toxicology screen positive for cannabinoids and methamphetamines. Management as per Psychiatry. Substance use navigator and nursing home social worker consulted. Pain in right wrist - resolved Wrist x-ray: There is no evidence of an acute fracture, dislocation, blastic, or lytic lesions. Disposition: Hospitalist team will follow the the patient as per protocol. Date of Service: Nov 28, 2024 Billing Provider: JOY NOLASCO MD Common Visit Codes: [id number] INP/OBS CARE(MOD) PHILLIP MEDINA, RES Nov 28, 2024 17:09 JOY NOLASCO MD Dec 11, 2024 14:36
[2024-11-28 19:00] VITALS: RESP 17; O2SAT 97
--- NOTE | 2024-11-28 19:19 | PROGRESS NOTE ---
Progress Note Dictate Providers to CC ~ Antibiotic Ordered?: No Objective Vitals Vital Signs Date Time Temp Pulse Resp B/P (MAP) Pulse Ox O2 Delivery O2 Flow Rate FiO2 11/28/24 08:00 97.8 58 15 107/61 (76) 98 Room Air Psychiatrist's Progress Note Date of Service: Nov 28, 2024 Notes Notes CHART REVIEW Pt is a 24-year-old single male who is currently conserved in [facility] and his conservator is Yocasta Vinson. Pt was recently at [facility] and was discharged in May 2024 and had placement at [facility] in [place]. 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 The pt is now at [facility] awaiting new placement. The pt reports that he felt he was doing well at his most recent placement and doesn't understand why he was moved out and why he likely cannot return. The pt reports that he was close to his dad and was getting visits and is worried he'll be moved to another facility with more restrictions. The pt appears upset and unable to process how the course of his actions led to where he's at now. The pt will likely be at [facility] until his conservator finds placement for him. ASSESSMENT The patient was interviewed in the conference room, Wearing a blue sweater, states he is doing well, slept good last night, spends time interacting with peers, compliant with tx, patient is at baseline, no behavioral or safety concerns reported by staff. Patient is on LPS, awaiting placement. Will continue daily assessment and adjusting treatment as needed. Closely monitor behavior and response to medication during hospitalization. Mental Status Exam Appearance: Dressed casually, blue sweater Speech: Normal Eye Contact: good Motor Activity: Normal Affect: Full Mood: Euthymic Orientation Impairment: None Memory Impairment: None Attention: Normal Hallucinations: Denies Other: None Suicidality: None Homicidality: None Delusions: None Behavior: Cooperative, Guarded Insight: Fair Judgment: Fair Treatment ABILIFY 30 MG P.O. DAILY SEROQUEL 550 MG P.O. Q.H.S. TRAZODONE 200 MG P.O. Q.H.S. SENNA 8.6 MG ONE TAB P.O. Q.H.S. ATIVAN 1 MG P.O. Q.6 PRN NEEDED FOR ANXIETY Monitoring by Staff, Milieu, Group, and Individual counseling as needed -- According to the [place] Suicide Assessment the above named patient is on Q15 MINUTE CHECKS. LPS CONSERVED Total time spent 40 minutes on REVIEW OF Clinical notes [X ] RN notes [X] PCT documentation [X] SW notes Labs [ X] Medications [X] Care trends/care activity [X] Vitals [X] DISCUSSION WITH fuel cell designer [X] Discharge UNSURE AT THIS TIME. PATIENT IS LPS CONSERVED AWAITING PLACEMENT CODING VISIT-PSYCHIATRY Date of Service: Nov 28, 2024 Billing Provider: DARYL DUBON DNP Psych Common Visit Codes: [id number] INP/OBS CARE(Mod) DARYL DUBON DNP Nov 28, 2024 19:19
[2024-11-28 19:41] VITALS: BP 129/83; PULSE 100; RESP 17; TEMP 97.7; O2SAT 97
[2024-11-29 07:00] VITALS: RESP 16; O2SAT 97
[2024-11-29 08:00] VITALS: BP 92/59; PULSE 63; RESP 16; TEMP 97.3; O2SAT 97
[2024-11-29 19:00] VITALS: RESP 18; O2SAT 93
--- NOTE | 2024-11-29 19:17 | PROGRESS NOTE ---
Progress Note Dictate Providers to CC ~ Antibiotic Ordered?: No Objective Vitals Vital Signs Date Time Temp Pulse Resp B/P (MAP) Pulse Ox O2 Delivery O2 Flow Rate FiO2 11/29/24 08:00 97.3 63 16 92/59 (70) 97 Room Air Psychiatrist's Progress Note Date of Service: Nov 29, 2024 Notes CHART REVIEW Pt is a 24-year-old single male who is currently conserved in [facility] and his conservator is Yocasta Vinson. Pt was recently at [facility] and was discharged in May 2024 and had placement at [facility] in [place]. 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 The pt is now at [facility] awaiting new placement. The pt reports that he felt he was doing well at his most recent placement and doesn't understand why he was moved out and why he likely cannot return. The pt reports that he was close to his dad and was getting visits and is worried he'll be moved to another facility with more restrictions. The pt appears upset and unable to process how the course of his actions led to where he's at now. The pt will likely be at [facility] until his conservator finds placement for him. ASSESSMENT The patient was interviewed in the conference room, calm, speaks in a soft voice, states he is doing well, no acute psychiatric symptoms reported/noted. Patient is compliant with treatment. LPS, awaiting placement. No behavioral or safety concerns reported by staff. Will continue daily assessment and adjusting treatment as needed. Closely monitor behavior and response to medication during hospitalization. Mental Status Exam Appearance: Dressed casually, blue sweater Speech: Normal Eye Contact: good Motor Activity: Normal Affect: Full Mood: Euthymic Orientation Impairment: None Memory Impairment: None Attention: Normal Hallucinations: Denies Other: None Suicidality: None Homicidality: None Delusions: None Behavior: Cooperative, Guarded Insight: Fair Judgment: Fair Treatment ABILIFY 30 MG P.O. DAILY SEROQUEL 550 MG P.O. Q.H.S. TRAZODONE 200 MG P.O. Q.H.S. SENNA 8.6 MG ONE TAB P.O. Q.H.S. ATIVAN 1 MG P.O. Q.6 PRN NEEDED FOR ANXIETY Monitoring by Staff, Milieu, Group, and Individual counseling as needed -- According to the [place] Suicide Assessment the above named patient is on Q15 MINUTE CHECKS. LPS CONSERVED Total time spent 35 minutes on REVIEW OF Clinical notes [X ] RN notes [X] PCT documentation [X] SW notes Labs [ X] Medications [X] Care trends/care activity [X] Vitals [X] DISCUSSION WITH stationary engineer refrigeration [X] Discharge UNSURE AT THIS TIME. PATIENT IS LPS CONSERVED AWAITING PLACEMENT CODING VISIT-PSYCHIATRY Date of Service: Nov 29, 2024 Billing Provider: DARYL DUBON DNP Psych Common Visit Codes: [id number] INP/OBS CARE(Mod) DARYL DUBON DNP Nov 29, 2024 19:17
[2024-11-29 20:00] VITALS: BP 116/63; PULSE 91; RESP 18; TEMP 98.7; O2SAT 93
[2024-11-30 07:00] VITALS: RESP 16; O2SAT 98
[2024-11-30 08:00] VITALS: BP 103/67; PULSE 60; RESP 16; TEMP 97.3; O2SAT 98
[2024-11-30 20:00] VITALS: BP 110/78; PULSE 93; RESP 17; TEMP 97.8; O2SAT 95
[2024-11-30 23:34] VITALS: RESP 17; O2SAT 95
[2024-12-01 07:00] VITALS: RESP 16; O2SAT 97
[2024-12-01 08:00] VITALS: BP 107/56; PULSE 60; RESP 16; TEMP 97.3; O2SAT 97
--- NOTE | 2024-12-01 18:21 | PROGRESS NOTE- Residence ---
Progress Note - Resident Providers to CC Resident Creating Document: PHILLIP MEDINA, RES ~ Antibiotic Timeout Antibiotic Ordered?: No Subjective Patient was seen and examined at bedside, denied any new medical symptoms. Objective Vital Signs Date Time Temp Pulse Resp B/P (MAP) Pulse Ox O2 Delivery O2 Flow Rate FiO2 12/01/24 08:00 97.3 60 16 107/56 (73) 97 Room Air Awake , alert, and oriented x4, resting comfortably in the bed, in no acute distress HEENT: Atraumatic, normocephalic, EOMI, anicteric sclera ; pink conjunctiva Neck: Trachea midline. Supple, full range of motion, no JVD Cardiac: Regular rhythm, regular rate with no murmurs all over the precordium. Respiratory: Equal breath sounds bilaterally, no tachypnea, no wheezing ,rub or rales, Chest wall is symmetric and without deformity. Gastrointestinal: Abdomen symmetric, non-distended, soft, non-tender, normal bowel sounds x4 quadrant, normoactive, no hepatosplenomegaly Musculoskeletal: No pedal edema, no cyanosis Neurological: Speech is clear, alert, and oriented x 4. No motor or sensory deficit, deep tendon reflexes normal, cerebellar intact. Cranial nerves II-XII intact. Skin: Warm and dry Advance Care Planning Advanced Care plannin - 30 Minutes Assessment Assessment A 24-year-old single male who was transferred from [place] for behavior rehabilitation for his behavior issues and substance abuse history was admitted for further management. Plan Plan Schizophrenia Management as per Psychiatry. Substance use history Urine toxicology screen positive for cannabinoids and methamphetamines. Management as per Psychiatry. Substance use navigator and social worker school consulted. Pain in right wrist - resolved Wrist x-ray: There is no evidence of an acute fracture, dislocation, blastic, or lytic lesions. Disposition: Hospitalist team will follow the the patient as per protocol. Date of Service: Dec 01, 2024 Billing Provider: JOY NOLASCO MD Common Visit Codes: [id number] INP/OBS CARE(MOD) PHILLIP MEDINA, RES Dec 01, 2024 18:21 JOY NOLASCO MD Dec 11, 2024 14:36
[2024-12-01 19:00] VITALS: RESP 16; O2SAT 97
[2024-12-01 20:00] VITALS: BP 123/61; PULSE 91; RESP 16; TEMP 98.6; O2SAT 97
--- NOTE | 2024-12-01 22:05 | PROGRESS NOTE ---
Progress Note Dictate Providers to CC ~ Antibiotic Ordered?: No Objective Vitals Vital Signs Date Time Temp Pulse Resp B/P (MAP) Pulse Ox O2 Delivery O2 Flow Rate FiO2 12/01/24 08:00 97.3 60 16 107/56 (73) 97 Room Air Psychiatrist's Progress Note Date of Service: Nov 30, 2024 Since PT.'S Admission CHART REVIEW Pt is a 24-year-old single male who is currently conserved in [facility] and his conservator is Yocasta Vinson. Pt was recently at [facility] and was discharged in May 2024 and had placement at [facility] in [place]. 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 The pt is now at [facility] awaiting new placement. The pt reports that he felt he was doing well at his most recent placement and doesn't understand why he was moved out and why he likely cannot return. The pt reports that he was close to his dad and was getting visits and is worried he'll be moved to another facility with more restrictions. The pt appears upset and unable to process how the course of his actions led to where he's at now. The pt will likely be at [facility] until his conservator finds placement for him. ASSESSMENT The patient was interviewed in the conference room,alert oriented x 3, states he is bored but otherwise doing ok, tries to keep busy in the unit. He is denying all psychiatric symptoms/none noted. patient is at baseline, LPS, awaiting placement. No behavioral or safety concerns reported by staff. Will continue daily assessment and adjusting treatment as needed. Closely monitor behavior and response to medication during hospitalization. Mental Status Exam Appearance: Dressed casually, blue sweater Speech: Normal Eye Contact: good Motor Activity: Normal Affect: Full Mood: Euthymic Orientation Impairment: None Memory Impairment: None Attention: Normal Hallucinations: Denies Other: None Suicidality: None Homicidality: None Delusions: None Behavior: Cooperative, Guarded Insight: Fair Judgment: Fair Treatment ABILIFY 30 MG P.O. DAILY SEROQUEL 550 MG P.O. Q.H.S. TRAZODONE 200 MG P.O. Q.H.S. SENNA 8.6 MG ONE TAB P.O. Q.H.S. ATIVAN 1 MG P.O. Q.6 PRN NEEDED FOR ANXIETY Monitoring by Staff, Milieu, Group, and Individual counseling as needed -- According to the [place] Suicide Assessment the above named patient is on Q15 MINUTE CHECKS. LPS CONSERVED Total time spent 45 minutes on REVIEW OF Clinical notes [X ] RN notes [X] PCT documentation [X] SW notes Labs [ X] Medications [X] Care trends/care activity [X] Vitals [X] DISCUSSION WITH stripping machine operator [X] Discharge UNSURE AT THIS TIME. PATIENT IS LPS CONSERVED AWAITING PLACEMENT CODING VISIT-PSYCHIATRY Date of Service: Nov 30, 2024 Billing Provider: DARYL DUBON DNP Psych Common Visit Codes: [id number] INP/OBS CARE(Mod) DARYL DUBON DNP Dec 01, 2024 22:05
--- NOTE | 2024-12-01 22:06 | PROGRESS NOTE ---
Progress Note Dictate Providers to CC ~ Antibiotic Ordered?: No Objective Vitals Vital Signs Date Time Temp Pulse Resp B/P (MAP) Pulse Ox O2 Delivery O2 Flow Rate FiO2 12/01/24 08:00 97.3 60 16 107/56 (73) 97 Room Air Psychiatrist's Progress Note Date of Service: Dec 01, 2024 Notes REID REVIEW Pt is a 24-year-old single male who is currently conserved in [facility] and his conservator is Yocasta Vinson. Pt was recently at [facility] and was discharged in May 2024 and had placement at [facility] in [place]. 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 The pt is now at [facility] awaiting new placement. The pt reports that he felt he was doing well at his most recent placement and doesn't understand why he was moved out and why he likely cannot return. The pt reports that he was close to his dad and was getting visits and is worried he'll be moved to another facility with more restrictions. The pt appears upset and unable to process how the course of his actions led to where he's at now. The pt will likely be at [facility] until his conservator finds placement for him. ASSESSMENT The patient was interviewed in the conference room, smiling, very happy, states he just finished his interview, may have found placement here at [place] which will be good because he mother can attend his mother can petition to take over his conservatorship. He is very hopeful, he is denying all acute psychiatric symptoms/none noted. Patient is complaint with treatment, on LPS, awaiting placement. Will continue daily assessment and adjusting treatment as needed. Closely monitor behavior and response to medication during hospitalization. Mental Status Exam Appearance: Dressed casually, blue sweater Speech: Normal Eye Contact: good Motor Activity: Normal Affect: Full Mood: Euthymic Orientation Impairment: None Memory Impairment: None Attention: Normal Hallucinations: Denies Other: None Suicidality: None Homicidality: None Delusions: None Behavior: Cooperative, happy Insight: Fair Judgment: Fair Treatment ABILIFY 30 MG P.O. DAILY SEROQUEL 550 MG P.O. Q.H.S. TRAZODONE 200 MG P.O. Q.H.S. SENNA 8.6 MG ONE TAB P.O. Q.H.S. ATIVAN 1 MG P.O. Q.6 PRN NEEDED FOR ANXIETY Monitoring by Staff, Milieu, Group, and Individual counseling as needed -- According to the [place] Suicide Assessment the above named patient is on Q15 MINUTE CHECKS. LPS CONSERVED Total time spent 35 minutes on REVIEW OF Clinical notes [X ] RN notes [X] PCT documentation [X] SW notes Labs [ X] Medications [X] Care trends/care activity [X] Vitals [X] DISCUSSION WITH napper runner [X] Discharge UNSURE AT THIS TIME. PATIENT IS LPS CONSERVED AWAITING PLACEMENT CODING VISIT-PSYCHIATRY Date of Service: Dec 01, 2024 Billing Provider: DARYL DUBON DNP Psych Common Visit Codes: [id number] INP/OBS CARE(Mod) DARYL DUBON DNP Dec 01, 2024 22:06
[2024-12-02 07:00] VITALS: RESP 16; O2SAT 97
[2024-12-02 08:00] VITALS: BP 107/64; PULSE 61; RESP 16; TEMP 97; O2SAT 97
--- NOTE | 2024-12-02 15:09 | PROGRESS NOTE ---
Progress Note Dictate Providers to CC ~ Central Line/PICC still needed: N\A Antibiotic Ordered?: No Objective Vitals Vital Signs Date Time Temp Pulse Resp B/P (MAP) Pulse Ox O2 Delivery O2 Flow Rate FiO2 12/02/24 08:00 97.0 61 16 107/64 (78) 97 Room Air Problem\Assessment\Plan Problems/Diagnosis: (1) Schizophrenia (2) Gravely disabled Psychiatrist's Progress Note Date of Service: Dec 02, 2024 Notes Temo Cook is a 24-year-old single male who is currently conserved in [facility] and his conservator is Yocasta Vinson. Pt was recently at [facility] and was discharged in May 2024 and had placement at [facility] in [place]. 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 The pt is now at [facility] awaiting new placement. The pt reports that he felt he was doing well at his most recent placement and doesn't understand why he was moved out and why he likely cannot return. The pt reports that he was close to his dad and was getting visits and is worried he'll be moved to another facility with more restrictions. The pt appears upset and unable to process how the course of his actions led to where he's at now. The pt will likely be at [facility] until his conservator finds placement for him. Patient is of normal height and weight. He has shaved head. Some acne. Some facial hair. Right guaged ear lobe. He is wearing street clothes. Nothing much. Doing okay. [place]. In 6 months mom will do 3rd alliance party. Drugs and was homeless. Depression always been there. Prefer not to take anything for it. Don't want to lose that part of myself. Wondering if he could be tested for ADHD. Literally can't sit still. Hyper as a kid. Discussed what happened to land him on [facility]. We talked about drugs but then he states 'and being homeless.' So we talked about what made him homeless. He accused his mom of kicking him out... why? because of drugs... but he did not see that he caused this to happen and casts blame on his mother. Sleeping alright and having good BMs. Mental Status Eye contact: Fair; Behavior: Cooperative. Speech: Regular Mood: 'I'm okay' Affect: Constricted. Thought process: No disorganization, Minimal speech. Denies Paranoid Delusions. Thought Content: immediate needs/medications. Cognition: A&O X4; Insight: Poor. Still accusing his mother of for his situations in spite of his own choice to bring drugs into the house. Judgment: Poor and impulsive; SI Denies/HI Denies, AH Denies/VH Denies Results Of any Diagn. Testing REVIEW OF LABS WBC 8.0 RBC 4.55 HEMOGLOBIN 14.2 HEMATOCRIT 41.8 PLATELET [id number] SODIUM 143 POTASSIUM 4.2 CHLORIDE 104 ANION GAP 10 BUN 11 CREATININE 0.71 CALCIUM 8.8 ALBUMIN 3.8 TSH 0.78 LDL 71 HDL 50 TRIGLYCERIDES 111 URINE TOX SCREEN POSITIVE CANNABIS AND AMPHETAMINES URINALYSIS NEGATIVE Treatment d/c PRAZOSIN 2 MG P.O. Q.H.S. Remeron 30mg one po hs. ABILIFY 30 MG P.O. DAILY SEROQUEL 550 MG P.O. Q.H.S. TRAZODONE 200 MG P.O. Q.H.S. SENNA 8.6 MG ONE TAB P.O. Q.H.S. ATIVAN 1 MG P.O. Q.6 PRN NEEDED FOR ANXIETY Monitoring by Staff, Milieu, Group, and Individual counseling as needed -- According to the [place] Suicide Assessment the above named patient is on Q15 MINUTE CHECKS. LPS CONSERVED Discharge UNSURE AT THIS TIME. PATIENT IS LPS CONSERVED AWAITING PLACEMENT. REVIEW OF Clinical notes [X ] RN notes [X] PCT documentation [X] SW notes [X] Labs [ X] Medications [X] Care trends/care activity [X] Vitals [X] DISCUSSION WITH spark tester [X] CODING VISIT-PSYCHIATRY Date of Service: Dec 02, 2024 Billing Provider: HARRY HALL Psych Common Visit Codes: [id number] INP/OBS CARE(High) Problem Qualifiers (1) Schizophrenia: Qualified Codes: F20.9 - Schizophrenia, unspecified HARRY HALL Dec 02, 2024 15:09
[2024-12-02 19:00] VITALS: RESP 16; O2SAT 100
[2024-12-02 20:00] VITALS: BP 131/76; PULSE 90; RESP 16; TEMP 97.6; O2SAT 100
[2024-12-03 07:00] VITALS: RESP 16; O2SAT 98
[2024-12-03 08:00] VITALS: BP 113/51; PULSE 62; RESP 16; TEMP 97.6; O2SAT 98
--- NOTE | 2024-12-03 12:55 | PROGRESS NOTE ---
Progress Note Dictate Providers to CC ~ Central Line/PICC still needed: N\A Antibiotic Ordered?: No Objective Vitals Vital Signs Date Time Temp Pulse Resp B/P (MAP) Pulse Ox O2 Delivery O2 Flow Rate FiO2 12/03/24 08:00 97.6 62 16 113/51 (71) 98 Room Air Problem\Assessment\Plan Problems/Diagnosis: (1) Schizophrenia (2) Gravely disabled Psychiatrist's Progress Note Date of Service: Dec 03, 2024 Notes Temo Cook is a 24-year-old single male who is currently conserved in [facility] and his conservator is Yocasta Vinson. Pt was recently at [facility] and was discharged in May 2024 and had placement at [facility] in [place]. 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 The pt is now at [facility] awaiting new placement. The pt reports that he felt he was doing well at his most recent placement and doesn't understand why he was moved out and why he likely cannot return. The pt reports that he was close to his dad and was getting visits and is worried he'll be moved to another facility with more restrictions. The pt appears upset and unable to process how the course of his actions led to where he's at now. The pt will likely be at [facility] until his conservator finds placement for him. Patient is of normal height and weight. He has shaved head. Some acne. Some facial hair. Right guaged ear lobe. He is wearing street clothes. Mental Status Eye contact: Fair; Behavior: Cooperative. Speech: Regular Mood: 'I'm okay' Affect: Constricted. Thought process: No disorganization, Minimal speech. Denies Paranoid Delusions. Thought Content: immediate needs/medications. Cognition: A&O X4; Insight: Still poor, blaming. Judgment: Poor and impulsive; SI Denies/HI Denies, AH Denies/VH Denies Results Of any Diagn. Testing REVIEW OF LABS WBC 8.0 RBC 4.55 HEMOGLOBIN 14.2 HEMATOCRIT 41.8 PLATELET [id number] SODIUM 143 POTASSIUM 4.2 CHLORIDE 104 ANION GAP 10 BUN 11 CREATININE 0.71 CALCIUM 8.8 ALBUMIN 3.8 TSH 0.78 LDL 71 HDL 50 TRIGLYCERIDES 111 URINE TOX SCREEN POSITIVE CANNABIS AND AMPHETAMINES URINALYSIS NEGATIVE Treatment d/c PRAZOSIN 2 MG P.O. Q.H.S. Remeron 30mg one po hs. ABILIFY 30 MG P.O. DAILY SEROQUEL 550 MG P.O. Q.H.S. TRAZODONE 200 MG P.O. Q.H.S. SENNA 8.6 MG ONE TAB P.O. Q.H.S. ATIVAN 1 MG P.O. Q.6 PRN NEEDED FOR ANXIETY Monitoring by Staff, Milieu, Group, and Individual counseling as needed -- According to the [place] Suicide Assessment the above named patient is on Q15 MINUTE CHECKS. LPS CONSERVED Discharge UNSURE AT THIS TIME. PATIENT IS LPS CONSERVED AWAITING PLACEMENT. REVIEW OF Clinical notes [X ] RN notes [X] PCT documentation [X] SW notes [X] Labs [ X] Medications [X] Care trends/care activity [X] Vitals [X] DISCUSSION WITH microfilm machine operator [X] CODING VISIT-PSYCHIATRY Date of Service: Dec 03, 2024 Billing Provider: HARRY HALL Psych Common Visit Codes: [id number] INP/OBS CARE(Low) Problem Qualifiers (1) Schizophrenia: Qualified Codes: F20.9 - Schizophrenia, unspecified HARRY HALL Dec 03, 2024 12:55
[2024-12-03 19:00] VITALS: RESP 16; O2SAT 97
[2024-12-03 20:00] VITALS: BP 117/67; PULSE 104; RESP 16; TEMP 98.3; O2SAT 97
--- NOTE | 2024-12-03 20:11 | PROGRESS NOTE- Residence ---
Progress Note - Resident Providers to CC Resident Creating Document: PHILLIP MEDINA, RES ~ Antibiotic Timeout Antibiotic Ordered?: No Subjective Patient was seen and examined at bedside, denied any new medical symptoms. Objective Vital Signs Date Time Temp Pulse Resp B/P (MAP) Pulse Ox O2 Delivery O2 Flow Rate FiO2 12/03/24 19:00 16 97 Room Air 12/03/24 08:00 97.6 62 113/51 (71) Awake , alert, and oriented x4, resting comfortably in the bed, in no acute distress HEENT: Atraumatic, normocephalic, EOMI, anicteric sclera ; pink conjunctiva Neck: Trachea midline. Supple, full range of motion, no JVD Cardiac: Regular rhythm, regular rate with no murmurs all over the precordium. Respiratory: Equal breath sounds bilaterally, no tachypnea, no wheezing ,rub or rales, Chest wall is symmetric and without deformity. Gastrointestinal: Abdomen symmetric, non-distended, soft, non-tender, normal bowel sounds x4 quadrant, normoactive, no hepatosplenomegaly Musculoskeletal: No pedal edema, no cyanosis Neurological: Speech is clear, alert, and oriented x 4. No motor or sensory deficit, deep tendon reflexes normal, cerebellar intact. Cranial nerves II-XII intact. Skin: Warm and dry Advance Care Planning Advanced Care plannin - 30 Minutes Assessment Assessment A 24-year-old single male who was transferred from [place] for behavior rehabilitation for his behavior issues and substance abuse history was admitted for further management. Plan Plan Schizophrenia Management as per Psychiatry. Substance use history Urine toxicology screen positive for cannabinoids and methamphetamines. Management as per Psychiatry. Substance use navigator and home health care social worker consulted. Pain in right wrist - resolved Wrist x-ray: There is no evidence of an acute fracture, dislocation, blastic, or lytic lesions. Disposition: Hospitalist team will follow the the patient as per protocol. Date of Service: Dec 03, 2024 Billing Provider: JOY NOLASCO MD Common Visit Codes: [id number] INP/OBS CARE(MOD) PHILLIP MEDINA, RES Dec 03, 2024 20:11 JOY NOLASCO MD Dec 11, 2024 14:37
[2024-12-04 07:00] VITALS: RESP 16; O2SAT 97
[2024-12-04 08:00] VITALS: BP 140/90; PULSE 104; RESP 16; TEMP 98; O2SAT 99
[2024-12-04 19:00] VITALS: RESP 18; O2SAT 98
[2024-12-04 19:35] VITALS: BP 122/81; PULSE 91; RESP 18; TEMP 97.6; O2SAT 98
--- NOTE | 2024-12-04 19:40 | PROGRESS NOTE ---
Progress Note Dictate Providers to CC ~ Antibiotic Ordered?: No Objective Vitals Vital Signs Date Time Temp Pulse Resp B/P (MAP) Pulse Ox O2 Delivery O2 Flow Rate FiO2 12/04/24 08:00 98.0 104 16 140/90 (107) 99 Room Air Psychiatrist's Progress Note Notes REID REVIEW Pt is a 24-year-old single male who is currently conserved in [facility] and his conservator is Yocasta Mohannandez. Pt was recently at [facility] and was discharged in May 2024 and had placement at [facility] in [place]. 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 The pt is now at [facility] awaiting new placement. The pt reports that he felt he was doing well at his most recent placement and doesn't understand why he was moved out and why he likely cannot return. The pt reports that he was close to his dad and was getting visits and is worried he'll be moved to another facility with more restrictions. The pt appears upset and unable to process how the course of his actions led to where he's at now. The pt will likely be at [facility] until his conservator finds placement for him. ASSESSMENT patient refused assessment assessment but was complaint with nursing interventions. Per report patient was socializing with peers, he is compliant ion taking his medication. No behavioral or safety concerns reported by staff.d. Patient is LPS, awaiting placement. Will continue daily assessment and adjusting treatment as needed. Closely monitor behavior and response to medication during hospitalization. Mental Status Exam Behavior: Uncooperative Insight: Poor Judgment: Poor Treatment ABILIFY 30 MG P.O. DAILY SEROQUEL 550 MG P.O. Q.H.S. TRAZODONE 200 MG P.O. Q.H.S. SENNA 8.6 MG ONE TAB P.O. Q.H.S. ATIVAN 1 MG P.O. Q.6 PRN NEEDED FOR ANXIETY Monitoring by Staff, Milieu, Group, and Individual counseling as needed -- According to the [place] Suicide Assessment the above named patient is on Q15 MINUTE CHECKS. LPS CONSERVED Total time spent 20 minutes on REVIEW OF Clinical notes [X ] RN notes [X] PCT documentation [X] SW notes Labs [ X] Medications [X] Care trends/care activity [X] Vitals [X] DISCUSSION WITH annual giving director [X] Discharge UNSURE AT THIS TIME. PATIENT IS LPS CONSERVED AWAITING PLACEMENT CODING VISIT-PSYCHIATRY Date of Service: Dec 04, 2024 Billing Provider: DARYL DUBON DNP Psych Common Visit Codes: [id number] INP/OBS CARE(Mod) DARYL DUBON DNP Dec 04, 2024 19:40
[2024-12-05 07:00] VITALS: RESP 16; O2SAT 97
[2024-12-05 08:00] VITALS: BP 109/65; PULSE 99; RESP 16; TEMP 97.9; O2SAT 99
--- NOTE | 2024-12-05 09:47 | PROGRESS NOTE ---
Daily Progress Note Providers to CC ~ no new complaint today, resting comfortably in the bed Central Line/PICC still needed: No [place]-Non Protocol [place] Indications Met/Not Met: F/C Indications Not Met Antibiotic Timeout Antibiotic Ordered?: No MRSA Education MRSA Education Provided to pt: No Subjective As above Objective Vital Signs Date Time Temp Pulse Resp B/P (MAP) Pulse Ox O2 Delivery O2 Flow Rate FiO2 12/05/24 08:00 97.9 99 16 109/65 (80) 99 Room Air Vital signs, stable ,afebrile. Pulse Oximetry reflects adequate oxygenation. General: well developed, well nourished. Awake , alert, and oriented x4, resting comfortably in the bed, in no acute distress . Skin: Warm, dry, no pallor, no rash or petechiae. HEENT: Atraumatic, normocephalic, EOMI, anicteric sclera B; pink conjunctiva; PERRLA, normal oropharynx, moist oral and nasal mucosa. Tympanic membrane , nose , throat clear. Neck: Trachea midline. Supple, full range of motion, no JVD, bruit , hepatojugular reflex , lymphadenopathy or masses, or other lesions Cardiac: Regular rhythm, regular rate no murmurs, rubs, or gallops. Normal S1 and S2, no S3 noticed. PMI is normal. Respiratory: Equal breath sounds bilaterally, no tachypnea; lungs clear to auscultation bilaterally, no wheezing ,rub or rales, or crackles. Chest wall is symmetric and without deformity. No signs of trauma. Chest wall is nontender. No signs of respiratory distress. Resonance is normal upon percussion bilaterally. Gastrointestinal: Abdomen symmetric, non-distended, soft, non-tender, normal bowel sounds x4 quadrant, normoactive, no hepatosplenomegaly , no masses , no bruit, no flank pain bilaterally. No voluntary guarding, rebound, or rigidity. No tenderness to percussion. No pulsatile masses. Equal femoral pulses. No Stafford's sign or McBurney point tenderness. Back; no CVA tenderness bilaterally, no deformities. Neck and back are without deformity as well. No tenderness noted on palpation of the spinous processes. Spinous processes are midline. Cervical, thoracic, and lumbar paraspinal muscles are not tender and are without spasm. : normal external genitalia, without lesions, swelling, masses or tenderness. Musculoskeletal: Extremities, normal range of motion, non-tender, muscle strength 5/5 x 4. Negative Homans signs bilaterally on lower extremity. Distal pulses full symmetrical, no clubbing, cyanosis , edema. Neurological: Speech is clear, alert, and oriented x 4. No motor or sensory deficit, deep tendon reflexes normal, cerebellar intact. Cranial nerves II-XII intact. Psych: Alert and or appropriate, normal affect. Vascular: Good distal pulses, which are equal x4; capillary refill less than 2 seconds. Lymphatic, no lymphadenopathy. Problem\Assessment\Plan Assessment/plan Schizophrenia in exacerbation Management as per Psychiatry. Substance use history Urine toxicology screen positive for cannabinoids and methamphetamines. Management as per Psychiatry. Substance use navigator and group social worker. Labs reviewed. Disposition: Hospitalist team will continue to follow the patient during the course of his hospital stay. Sepsis Screening Reassessment Date: Dec 05, 2024 Date of Service: Dec 05, 2024 Billing Provider: BULMARO SCANLON MD Common Visit Codes: [id number] INP/OBS CARE(LOW) BULMARO SCANLON MD Dec 05, 2024 09:47
[2024-12-05 19:00] VITALS: RESP 16; O2SAT 98
--- NOTE | 2024-12-05 19:49 | PROGRESS NOTE ---
Progress Note Dictate Providers to CC ~ Antibiotic Ordered?: No Objective Vitals Vital Signs Date Time Temp Pulse Resp B/P (MAP) Pulse Ox O2 Delivery O2 Flow Rate FiO2 12/05/24 08:00 97.9 99 16 109/65 (80) 99 Room Air Psychiatrist's Progress Note Date of Service: Dec 05, 2024 Notes REID REVIEW Pt is a 24-year-old single male who is currently conserved in [facility] and his conservator is Yocasta Vinson. Pt was recently at [facility] and was discharged in May 2024 and had placement at [facility] in [place]. 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 The pt is now at [facility] awaiting new placement. The pt reports that he felt he was doing well at his most recent placement and doesn't understand why he was moved out and why he likely cannot return. The pt reports that he was close to his dad and was getting visits and is worried he'll be moved to another facility with more restrictions. The pt appears upset and unable to process how the course of his actions led to where he's at now. The pt will likely be at [facility] until his conservator finds placement for him. ASSESSMENT The patient seen in the hallway, had refused assessment earlier in the day, states he fonds it hard to get out of bed in the mornings, prefers afternoon assessments other newberry he is doing well mentally, denying anxiety, depression or mood changes. No SI/HI/AVH. Patient is complaint with treatment, on LPS, awaiting placement. Will continue daily assessment and adjusting treatment as needed. Closely monitor behavior and response to medication during hospitalization. Mental Status Exam Appearance: Dressed casually, blue sweater Speech: Normal Eye Contact: good Motor Activity: Normal Affect: Full Mood: Euthymic Orientation Impairment: None Memory Impairment: None Attention: Normal Hallucinations: Denies Other: None Suicidality: None Homicidality: None Delusions: None Behavior: Cooperative, happy Insight: Fair Judgment: Fair Treatment ABILIFY 30 MG P.O. DAILY SEROQUEL 550 MG P.O. Q.H.S. TRAZODONE 200 MG P.O. Q.H.S. SENNA 8.6 MG ONE TAB P.O. Q.H.S. ATIVAN 1 MG P.O. Q.6 PRN NEEDED FOR ANXIETY Monitoring by Staff, Milieu, Group, and Individual counseling as needed -- According to the [place] Suicide Assessment the above named patient is on Q15 MINUTE CHECKS. LPS CONSERVED Total time spent 30 minutes on REVIEW OF Clinical notes [X ] RN notes [X] PCT documentation [X] SW notes Labs [ X] Medications [X] Care trends/care activity [X] Vitals [X] DISCUSSION WITH rotary saw operator [X] Discharge UNSURE AT THIS TIME. PATIENT IS LPS CONSERVED AWAITING PLACEMENT CODING VISIT-PSYCHIATRY Date of Service: Dec 05, 2024 Billing Provider: DARYL DUBON DNP Psych Common Visit Codes: [id number] INP/OBS CARE(Mod) DARYL DUBON DNP Dec 05, 2024 19:49
[2024-12-05 20:00] VITALS: BP 108/72; PULSE 98; RESP 16; TEMP 98.6; O2SAT 98
[2024-12-06 07:00] VITALS: RESP 12; O2SAT 100
[2024-12-06 08:00] VITALS: BP 127/71; PULSE 61; RESP 12; TEMP 98.1; O2SAT 100
--- NOTE | 2024-12-06 09:56 | PROGRESS NOTE ---
Progress Note Dictate Providers to CC ~ Central Line/PICC still needed: N\\A Antibiotic Ordered?: No MRSA Education MRSA Education Provided to pt: No Objective Vitals Vital Signs Date Time Temp Pulse Resp B/P (MAP) Pulse Ox O2 Delivery O2 Flow Rate FiO2 12/06/24 08:00 98.1 61 12 127/71 (89) 100 Room Air Problem\\Assessment\\Plan Problems/Diagnosis: (1) Gravely disabled (2) Schizophrenia Psychiatrist's Progress Note Date of Service: Dec 06, 2024 Notes CHART REVIEW Pt is a 24-year-old single male who is currently conserved in [facility] and his conservator is Yocasta Vinson. Pt was recently at [facility] and was discharged in May 2024 and had placement at [facility] in [place]. 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 The pt is now at [facility] awaiting new placement. The pt reports that he felt he was doing well at his most recent placement and doesn't understand why he was moved out and why he likely cannot return. The pt reports that he was close to his dad and was getting visits and is worried he'll be moved to another facility with more restrictions. The pt appears upset and unable to process how the course of his actions led to where he's at now. The pt will likely be at [facility] until his conservator finds placement for him. ASSESSMENT The patient was interviewed in observation room. The patient was actively in hallway engaging with nurse. The patient endorses "I am doing good." The patient endorses he maybe leaving next week for [place]. The patient endorses no worsening mental health symptoms. Denies SI. Denies HI. Denies AVH. Patient endorses adequate food intake food intake. The patient reports last BM was ye sterday. The patient is stable no acute distress noted. The patient presents as calm, cooperative, and engaged during session. Per staff report patient is medication compliant. Per staff report no abnormal behaviors. Will continue daily assessment and adjusting treatment as needed. Closely monitor behavior and response to medication during hospitalization. Results Of any Diagn. Testing REVIEW OF LABS WBC 8.0 RBC 4.55 HEMOGLOBIN 14.2 HEMATOCRIT 41.8 PLATELET [id number] SODIUM 143 POTASSIUM 4.2 CHLORIDE 104 ANION GAP 10 BUN 11 CREATININE 0.71 CALCIUM 8.8 ALBUMIN 3.8 TSH 0.78 LDL 71 HDL 50 TRIGLYCERIDES 111 URINE TOX SCREEN POSITIVE CANNABIS AND AMPHETAMINES URINALYSIS NEGATIVE Eye Contact: Other Motor Activity: Normal Affect: Full Orientation Impairment: None Memory Impairment: None Attention: Normal Hallucinations: None Other: None Suicidality: None Homicidality: None Delusions: None Behavior: Cooperative Insight: Fair Judgment: Fair Treatment ABILIFY 30 MG P.O. DAILY SEROQUEL 550 MG P.O. Q.H.S. TRAZODONE 200 MG P.O. Q.H.S. SENNA 8.6 MG ONE TAB P.O. Q.H.S. ATIVAN 1 MG P.O. Q.6 PRN NEEDED FOR ANXIETY Monitoring by Staff, Milieu, Group, and Individual counseling as needed -- According to the [place] Suicide Assessment the above named patient is on Q15 MINUTE CHECKS. LPS CONSERVED Total time spent 45 minutes on REVIEW OF Clinical notes [X ] RN notes [X] PCT documentation [X] SW notes Labs [ X] Medications [X] Care trends/care activity [X] Vitals [X] DISCUSSION WITH clean room assembler [X] Staff SW Treatment Team [X] Voice recognition software may have been used to dictate this note. There may be errors due to use of such software. Reporting of serious errors is apprecia rosi. Discharge UNSURE AT THIS TIME. PATIENT IS LPS CONSERVED AWAITING PLACEMENT CODING VISIT-PSYCHIATRY Date of Service: Dec 06, 2024 Billing Provider: KARIS HALLMAN APRN Psych Common Visit Codes: [id number] INP/OBS CARE(Mod) Problem Qualifiers (1) Schizophrenia: Qualified Codes: F20.9 - Schizophrenia, unspecified KARIS HALLMAN APRN Dec 06, 2024 09:56
[2024-12-06 19:27] VITALS: RESP 14; O2SAT 99
[2024-12-06 20:00] VITALS: BP 125/66; PULSE 104; RESP 18; TEMP 98; O2SAT 98
[2024-12-07 07:00] VITALS: RESP 16; O2SAT 99
[2024-12-07 08:00] VITALS: BP 98/55; PULSE 65; RESP 16; TEMP 97.6; O2SAT 99
--- NOTE | 2024-12-07 13:37 | PROGRESS NOTE ---
Progress Note Dictate Providers to CC ~ Central Line/PICC still needed: N\\A Antibiotic Ordered?: No MRSA Education MRSA Education Provided to pt: No Objective Vitals Vital Signs Date Time Temp Pulse Resp B/P (MAP) Pulse Ox O2 Delivery O2 Flow Rate FiO2 12/06/24 20:00 98.0 104 18 125/66 (85) 98 Room Air Problem\\Assessment\\Plan Problems/Diagnosis: (1) Gravely disabled (2) Schizophrenia Psychiatrist's Progress Note Date of Service: Dec 07, 2024 Notes CHART REVIEW Pt is a 24-year-old single male who is currently conserved in [facility] and his conservator is Yocasta Vinson. Pt was recently at [facility] and was discharged in May 2024 and had placement at [facility] in [place]. 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 The pt is now at [facility] awaiting new placement. The pt reports that he felt he was doing well at his most recent placement and doesn't understand why he was moved out and why he likely cannot return. The pt reports that he was close to his dad and was getting visits and is worried he'll be moved to another facility with more restrictions. The pt appears upset and unable to process how the course of his actions led to where he's at now. The pt will likely be at [facility] until his conservator finds placement for him. ASSESSMENT The patient was interviewed in observation room. The patient was actively resting in bed with eyes open. The patient endorses "good." The patient endorses he is excited about discharging to [place] next week. The patient endorses no worsening mental health symptoms. Denies SI. Denies HI. Denies AVH. Patient endorses adequate food intake food intake. The patient reports last BM was yesterday. The patient is stable no acute distress noted. The patient presents as calm, cooperative, and engaged during session. Per staff report patient is medication compliant. Per staff report no abnormal behaviors. Will continue daily assessment and adjusting treatment as needed. Closely monitor behavior and response to medication during hospitalization. Results Of any Diagn. Testing REVIEW OF LABS WBC 8.0 RBC 4.55 HEMOGLOBIN 14.2 HEMATOCRIT 41.8 PLATELET [id number] SODIUM 143 POTASSIUM 4.2 CHLORIDE 104 ANION GAP 10 BUN 11 CREATININE 0.71 CALCIUM 8.8 ALBUMIN 3.8 TSH 0.78 LDL 71 HDL 50 TRIGLYCERIDES 111 URINE TOX SCREEN POSITIVE CANNABIS AND AMPHETAMINES URINALYSIS NEGATIVE Appearnace: Other Speech: Other (CIRCUMSTANTIAL) Eye Contact: Normal Motor Activity: Normal Affect: Full Mood: Euthymic Orientation Impairment: None Memory Impairment: None Attention: Normal Hallucinations: None Other: None Suicidality: None Homicidality: None Delusions: None Behavior: Cooperative Insight: Fair Judgment: Fair Treatment ABILIFY 30 MG P.O. DAILY SEROQUEL 550 MG P.O. Q.H.S. TRAZODONE 200 MG P.O. Q.H.S. SENNA 8.6 MG ONE TAB P.O. Q.H.S. ATIVAN 1 MG P.O. Q.6 PRN NEEDED FOR ANXIETY Monitoring by Staff, Milieu, Group, and Individual counseling as needed -- According to the [place] Suicide Assessment the above named patient is on Q15 MINUTE CHECKS. LPS CONSERVED Total time spent 30 minutes on REVIEW OF Clinical notes [X ] RN notes [X] PCT documentation [X] SW notes Labs [ X] Medications [X] Care trends/care activity [X] Vitals [X] DISCUSSION WITH postdoctoral fellow [X] Staff SW Treatment Team [X] Voice recognition software may have been used to dictate this note. There may be errors due to use of such software. Reporting of serious errors is donya reciated. Discharge PATIENT IS LPS CONSERVED POSSIBLE DISCHARGE TO [facility] ON WEDNESDAY CODING VISIT-PSYCHIATRY Date of Service: Dec 07, 2024 Billing Provider: KARIS HALLMAN APRN Psych Common Visit Codes: [id number] INP/OBS CARE(Low) Problem Qualifiers (1) Schizophrenia: Qualified Codes: F20.9 - Schizophrenia, unspecified KARIS HALLMAN APRN Dec 07, 2024 13:37
--- NOTE | 2024-12-07 18:12 | PROGRESS NOTE- Residence ---
Progress Note - Resident Providers to CC Resident Creating Document: NADIA HAMMOND, RES ~ Antibiotic Timeout Antibiotic Ordered?: No Subjective Patient was seen and examined at bedside today. He has no new complaints. Objective Vital Signs Date Time Temp Pulse Resp B/P (MAP) Pulse Ox O2 Delivery O2 Flow Rate FiO2 12/07/24 08:00 97.6 65 16 98/55 (69) 99 Room Air Adult male, alert and oriented, not in acute distress Head: Normocephalic with an atraumatic Eyes: Pupils- 3mm, reacting to light, conjunctiva- anicteric Nose and throat: No polyps, septum- normal, no mucosal ulcers Neck: Supple, no lymphadenopathy, no carotid bruit Respiratory: No use of accessory muscles of respiration, Bilateral normal vesiscular breath sounds heard. No wheeze, rhochi or creps Cardiac: S1-S2 heard, rhythm regular, no gallop/murmur Abdomen: non distended, no tenderness, no organomegaly, bowel sounds - heard Extremities: no clubbing, no pedal edema, no deformities, peripheral pulses - 2+ Skin: warm and dry, no rash, no purpura, multiple acne on his face Neuro: No focal deficit, gross cranial nerve exam - normal Assessment Assessment A 24-year-old single male who was transferred from [place] for behavior rehabilitation for his behavior issues and substance abuse history was admitted for further management. Plan Plan Schizophrenia Management as per Psychiatry. Substance use history Urine toxicology screen positive for cannabinoids and methamphetamines. Management as per Psychiatry. Substance use navigator and renal social worker consulted. Pain in right wrist - resolved Wrist x-ray: There is no evidence of an acute fracture, dislocation, blastic, or lytic lesions. Disposition: Hospitalist team will continue to follow the patient during the course of his hospital stay. Nadia Hammond MD Internal Medicine Resident, PGY-2 Date of Service: Dec 07, 2024 Billing Provider: JOY NOLASCO MD Common Visit Codes: [id number] INP/OBS CARE(MOD) NADIA HAMMOND, RES Dec 07, 2024 18:12 JOY NOLASCO MD Dec 11, 2024 14:37
[2024-12-07 19:00] VITALS: RESP 16; O2SAT 97
[2024-12-07 20:00] VITALS: BP 119/54; PULSE 82; RESP 18; TEMP 98.7; O2SAT 97
[2024-12-08 07:00] VITALS: BP 100/53; PULSE 83; RESP 14; TEMP 97; O2SAT 100
--- NOTE | 2024-12-08 08:27 | PROGRESS NOTE ---
Progress Note Dictate Providers to CC ~ Central Line/PICC still needed: N\\A Antibiotic Ordered?: No MRSA Education MRSA Education Provided to pt: No Objective Vitals Vital Signs Date Time Temp Pulse Resp B/P (MAP) Pulse Ox O2 Delivery O2 Flow Rate FiO2 12/07/24 20:00 98.7 82 18 119/54 (75) 97 Room Air Problem\\Assessment\\Plan Problems/Diagnosis: (1) Gravely disabled (2) Schizophrenia Psychiatrist's Progress Note Date of Service: Dec 08, 2024 Notes CHART REVIEW Pt is a 24-year-old single male who is currently conserved in [facility] and his conservator is Yocasta Vinson. Pt was recently at [facility] and was discharged in May 2024 and had placement at [facility] in [place]. 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 The pt is now at [facility] awaiting new placement. The pt reports that he felt he was doing well at his most recent placement and doesn't understand why he was moved out and why he likely cannot return. The pt reports that he was close to his dad and was getting visits and is worried he'll be moved to another facility with more restrictions. The pt appears upset and unable to process how the course of his actions led to where he's at now. The pt will likely be at [facility] until his conservator finds placement for him. ASSESSMENT The patient was interviewed in observation room. The patient was actively ambulating in hallway. The patient endorses "I am doing okay." The patient endorses he is bored here in is ready to get to [place]. The patient endorses no worsening mental health symptoms. Denies SI. Denies HI. Denies AVH. Patient endorses adequate food intake food intake. The patient reports last BM was yeste rday. The patient is stable no acute distress noted. The patient presents as calm, cooperative, and engaged during session. Per staff report patient is medication compliant. Per staff report no abnormal behaviors. Will continue daily assessment and adjusting treatment as needed. Closely monitor behavior and response to medication during hospitalization. Results Of any Diagn. Testing REVIEW OF LABS WBC 8.0 RBC 4.55 HEMOGLOBIN 14.2 HEMATOCRIT 41.8 PLATELET [id number] SODIUM 143 POTASSIUM 4.2 CHLORIDE 104 ANION GAP 10 BUN 11 CREATININE 0.71 CALCIUM 8.8 ALBUMIN 3.8 TSH 0.78 LDL 71 HDL 50 TRIGLYCERIDES 111 URINE TOX SCREEN POSITIVE CANNABIS AND AMPHETAMINES URINALYSIS NEGATIVE Appearnace: Other Speech: Normal Eye Contact: Normal Motor Activity: Normal Affect: Full Orientation Impairment: None Memory Impairment: None Attention: Normal Hallucinations: None Other: None Suicidality: None Homicidality: None Delusions: None Behavior: Cooperative Insight: Fair Judgment: Fair Treatment ABILIFY 30 MG P.O. DAILY SEROQUEL 550 MG P.O. Q.H.S. TRAZODONE 200 MG P.O. Q.H.S. SENNA 8.6 MG ONE TAB P.O. Q.H.S. ATIVAN 1 MG P.O. Q.6 PRN NEEDED FOR ANXIETY Monitoring by Staff, Milieu, Group, and Individual counseling as needed -- According to the [place] Suicide Assessment the above named patient is on Q15 MINUTE CHECKS. LPS CONSERVED Total time spent 40 minutes on REVIEW OF Clinical notes [X ] RN notes [X] PCT documentation [X] SW notes Labs [ X] Medications [X] Care trends/care activity [X] Vitals [X] DISCUSSION WITH coal sampler [X] Staff SW Treatment Team [X] Voice recognition software may have been used to dictate this note. There may be errors due to use of such software. Reporting of serious errors is appreciated. Discharge PATIENT IS LPS CONSERVED POSSIBLE DISCHARGE TO [facility] ON WEDNESDAY CODING VISIT-PSYCHIATRY Date of Service: Dec 08, 2024 Billing Provider: KARIS HALLMAN APRN Psych Common Visit Codes: [id number] INP/OBS CARE(Low) Problem Qualifiers (1) Schizophrenia: Qualified Codes: F20.9 - Schizophrenia, unspecified KARIS HALLMAN APRN Dec 08, 2024 08:27
[2024-12-08 19:00] VITALS: RESP 17; O2SAT 99
[2024-12-08 20:00] VITALS: BP 128/66; PULSE 101; RESP 17; TEMP 97.6; O2SAT 99
[2024-12-09 07:00] VITALS: RESP 14
--- NOTE | 2024-12-09 08:22 | PROGRESS NOTE ---
Progress Note Dictate Providers to CC ~ Central Line/PICC still needed: N\\A Antibiotic Ordered?: No MRSA Education MRSA Education Provided to pt: No Objective Vitals Vital Signs Date Time Temp Pulse Resp B/P (MAP) Pulse Ox O2 Delivery O2 Flow Rate FiO2 12/08/24 20:00 97.6 101 17 128/66 (86) 99 Room Air Counseling Services Smoking & Tobacco Cessation: > 10 Minutes Problem\\Assessment\\Plan Problems/Diagnosis: (1) Gravely disabled (2) Schizophrenia Psychiatrist's Progress Note Date of Service: Dec 09, 2024 Notes CHART REVIEW Pt is a 24-year-old single male who is currently conserved in [facility] and his conservator is Yocasta Karel. Pt was recently at [facility] and was discharged in May 2024 and had placement at [facility] in [place]. 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 The pt is now at [facility] awaiting new placement. The pt reports that he felt he was doing well at his most recent placement and doesn't understand why he was moved out and why he likely cannot return. The pt reports that he was close to his dad and was getting visits and is worried he'll be moved to another facility with more restrictions. The pt appears upset and unable to process how the course of his actions led to where he's at now. The pt will likely be at [facility] until his conservator finds placement for him. ASSESSMENT The patient was interviewed in observation room. The patient was actively ambulating in hallway. The patient endorses "I am doing good." The patient endorses no worsening mental health symptoms. Denies SI. Denies HI. Denies AVH. Patient endorses adequate food intake food intake. The patient reports last BM was yesterday. The patient is stable no acute distress noted. The patient presents as calm, cooperative, and engaged during session. Per staff report patient is medication compliant. Per staff report no abnormal behaviors. Will continue daily assessment and adjusting treatment as needed. Closely monitor behavior and response to medication during hospitalization. Results Of any Diagn. Testing REVIEW OF LABS WBC 8.0 RBC 4.55 HEMOGLOBIN 14.2 HEMATOCRIT 41.8 PLATELET [id number] SODIUM 143 POTASSIUM 4.2 CHLORIDE 104 ANION GAP 10 BUN 11 CREATININE 0.71 CALCIUM 8.8 ALBUMIN 3.8 TSH 0.78 LDL 71 HDL 50 TRIGLYCERIDES 111 URINE TOX SCREEN POSITIVE CANNABIS AND AMPHETAMINES URINALYSIS NEGATIVE Treatment ABILIFY 30 MG P.O. DAILY SEROQUEL 550 MG P.O. Q.H.S. TRAZODONE 200 MG P.O. Q.H.S. SENNA 8.6 MG ONE TAB P.O. Q.H.S. ATIVAN 1 MG P.O. Q.6 PRN NEEDED FOR ANXIETY Monitoring by Staff, Milieu, Group, and Individual counseling as needed -- According to the [place] Suicide Assessment the above named patient is on Q15 MINUTE CHECKS. LPS CONSERVED Total time spent 25 minutes on REVIEW OF Clinical notes [X ] RN notes [X] PCT documentation [X] SW notes Labs [ X] Medications [X] Care trends/care activity [X] Vitals [X] DISCUSSION WITH swine genetics researcher [X] Staff SW Treatment Team [X] Voice recognition software may have been used to dictate this note. There may be errors due to use of such software. Reporting of serious errors is appreciated. Discharge PATIENT IS LPS CONSERVED POSSIBLE DISCHARGE TO [facility] ON WEDNESDAY CODING VISIT-PSYCHIATRY Date of Service: Dec 09, 2024 Billing Provider: KARIS HALLMAN APRN Psych Common Visit Codes: [id number] INP/OBS CARE(Low) Problem Qualifiers (1) Schizophrenia: Qualified Codes: F20.9 - Schizophrenia, unspecified KARIS HALLMAN APRN Dec 09, 2024 08:22
--- NOTE | 2024-12-09 10:22 | PROGRESS NOTE ---
Daily Progress Note Providers to CC ~ Antibiotic Timeout Antibiotic Ordered?: No Subjective No new complaints. Patient is seen resting comfortably at [facility] Objective Vital Signs Date Time Temp Pulse Resp B/P (MAP) Pulse Ox O2 Delivery O2 Flow Rate FiO2 12/09/24 08:00 Room Air 12/08/24 20:00 97.6 101 17 128/66 (86) 99 Gen. awake alert oriented asymptomatic HEENT: Normocephalic, atraumatic extraocular movements are intact, sclera anicteric, conjunctiva pinkish, moist oral mucosa, no rash or ulcers. NECK: Supple, no JVD, trachea midline. CHEST: Clear to auscultation, no wheezes crackles or rhonchi. HEART: Regular rate rhythm, no murmur gallop or rub. ABDOMEN: Soft, nontender, no organomegaly. EXTREMITIES: No cyanosis clubbing or edema. NEURO EXAM: Grossly nonfocal. MUSCULOSKELETAL : No joint swelling or deformities. SKIN: No rash or ulcers noted. Other Results Medications reviewed Problem\Assessment\Plan Schizophrenia Treate per Psychiatry. Substance use history Urine toxicology screen positive for cannabinoids and methamphetamines. Substance use navigator and nephrology social worker following the patient . I will sign off. Hospitalist team will continue to follow the patient. Please contact the hospitalist team for any change in patient's medical condition. Date of Service: Dec 09, 2024 Billing Provider: АЛЕКСАНДР HILTNO MD Common Visit Codes: [id number] INP/OBS CARE(LOW) АЛЕКСАНДР HILTON MD Dec 09, 2024 10:22
[2024-12-09 19:34] VITALS: RESP 17; O2SAT 98
[2024-12-09 19:36] VITALS: BP 115/74; PULSE 78; RESP 17; TEMP 98; O2SAT 98
[2024-12-10 07:00] VITALS: RESP 16
--- NOTE | 2024-12-10 10:51 | PROGRESS NOTE ---
Progress Note Dictate Providers to CC ~ Central Line/PICC still needed: N\\A Antibiotic Ordered?: No MRSA Education MRSA Education Provided to pt: No Objective Vitals Vital Signs Date Time Temp Pulse Resp B/P (MAP) Pulse Ox O2 Delivery O2 Flow Rate FiO2 12/10/24 08:00 Room Air 12/10/24 07:00 16 12/09/24 19:36 98.0 78 115/74 (88) 98 Counseling Services Smoking & Tobacco Cessation: > 10 Minutes Problem\\Assessment\\Plan Problems/Diagnosis: (1) Gravely disabled (2) Schizophrenia Psychiatrist's Progress Note Date of Service: Dec 10, 2024 Notes CHART REVIEW Pt is a 24-year-old single male who is currently conserved in [facility] and his conservator is Yocasta Vinson. Pt was recently at [facility] and was discharged in May 2024 and had placement at [facility] in [place]. 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 The pt is now at [facility] awaiting new placement. The pt reports that he felt he was doing well at his most recent placement and doesn't understand why he was moved out and why he likely cannot return. The pt reports that he was close to his dad and was getting visits and is worried he'll be moved to another facility with more restrictions. The pt appears upset and unable to process how the course of his actions led to where he's at now. The pt will likely be at [facility] until his conservator finds placement for him. ASSESSMENT The patient was interviewed in observation room. The patient was actively standing in hallway engaging with staff. The patient endorses "I am doing good." The patient endorses no worsening mental health symptoms. Denies SI. Denies HI. Denies AVH. Patient endorses adequate food intake food intake. The patient reports last BM was yesterday. The patient is stable no acute distress noted. The patient presents as calm, cooperative, and engaged during session. Per staff report patient is medication compliant. Per staff report no abnormal behaviors. Will continue daily assessment and adjusting treatment as needed. Closely monitor behavior and respo nse to medication during hospitalization. Results Of any Diagn. Testing REVIEW OF LABS WBC 8.0 RBC 4.55 HEMOGLOBIN 14.2 HEMATOCRIT 41.8 PLATELET [id number] SODIUM 143 POTASSIUM 4.2 CHLORIDE 104 ANION GAP 10 BUN 11 CREATININE 0.71 CALCIUM 8.8 ALBUMIN 3.8 TSH 0.78 LDL 71 HDL 50 TRIGLYCERIDES 111 URINE TOX SCREEN POSITIVE CANNABIS AND AMPHETAMINES URINALYSIS NEGATIVE Appearnace: Other (APPROPRIATE. AVERAGE HIGH AVERAGE WEIGHT MALE. WEARING STREET CLOTHING. SHORT DARK HAIR.) Speech: Other Eye Contact: Normal Motor Activity: Normal Affect: Full Mood: Euthymic Orientation Impairment: None Memory Impairment: None Attention: Normal Hallucinations: None Other: None Suicidality: None Homicidality: None Delusions: None Behavior: Cooperative Insight: Fair Judgment: Fair Treatment ABILIFY 30 MG P.O. DAILY SEROQUEL 550 MG P.O. Q.H.S. TRAZODONE 200 MG P.O. Q.H.S. SENNA 8.6 MG ONE TAB P.O. Q.H.S. ATIVAN 1 MG P.O. Q.6 PRN NEEDED FOR ANXIETY Monitoring by Staff, Milieu, Group, and Individual counseling as needed -- According to the [place] Suicide Assessment the above named patient is on Q15 MINUTE CHECKS. LPS CONSERVED Total time spent 25 minutes on REVIEW OF Clinical notes [X ] RN notes [X] PCT documentation [X] SW notes Labs [ X] Medications [X] Care trends/care activity [X] Vitals [X] DISCUSSION WITH plant operations coordinator [X] Staff SW Treatment Team [X] Voice recognition software may have been used to dictate this note. There may be errors due to use of such software. Reporting of serious errors is appreciated. Discharge PATIENT IS LPS CONSERVED POSSIBLE DISCHARGE TO [facility] ON WEDNESDAY CODING VISIT-PSYCHIATRY Date of Service: Dec 10, 2024 Billing Provider: KARIS HALLMAN APRN Psych Common Visit Codes: [id number] INP/OBS CARE(Low) Problem Qualifiers (1) Schizophrenia: Qualified Codes: F20.9 - Schizophrenia, unspecified KARIS HALLMAN APRN Dec 10, 2024 10:50
[2024-12-10 19:00] VITALS: RESP 16; O2SAT 90
[2024-12-10 20:00] VITALS: BP 121/71; PULSE 90; RESP 16; TEMP 98.6; O2SAT 96
[2024-12-11 07:00] VITALS: RESP 16
[2024-12-11 08:00] VITALS: RESP 16
--- NOTE | 2024-12-11 10:50 | PROGRESS NOTE ---
Progress Note Dictate Providers to CC ~ Central Line/PICC still needed: N\\A Antibiotic Ordered?: No MRSA Education MRSA Education Provided to pt: No Objective Vitals Vital Signs Date Time Temp Pulse Resp B/P (MAP) Pulse Ox O2 Delivery O2 Flow Rate FiO2 12/10/24 20:00 98.6 90 16 121/71 (88) 96 Room Air Problem\\Assessment\\Plan Problems/Diagnosis: (1) Gravely disabled (2) Schizophrenia Psychiatrist's Progress Note Date of Service: Dec 11, 2024 Notes CHART REVIEW Pt is a 24-year-old single male who is currently conserved in [facility] and his conservator is Yocasta Vinson. Pt was recently at [facility] and was disch arged in May 2024 and had placement at [facility] in [place]. 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 The pt is now at [facility] awaiting new placement. The pt reports that he felt he was doing well at his most recent placement and doesn't understand why he was moved out and why he likely cannot return. The pt reports that he was close to his dad and was getting visits and is worried he'll be moved to another facility with more restrictions. The pt appears upset and unable to process how the course of his actions led to where he's at now. The pt will likely be at [facility] until his conservator finds placement for him. ASSESSMENT The patient was interviewed in observation room. The patient was actively standing in hallway engaging with staff. The patient endorses "I am doing good." The patient endorses no worsening mental health symptoms. Denies SI. Denies HI. Denies AVH. Patient endorses adequate food intake food intake. The patient reports last BM was yesterday. The patient is stable no acute distress noted. The patient presents as calm, cooperative, and engaged during session. Per staff report patient is medication compliant. Per staff report no abnormal behaviors. Will continue daily assessment and adjusting treatment as needed. Closely monitor behavior and response to medication during hospitalization. Results Of any Diagn. Testing REVIEW OF LABS WBC 8.0 RBC 4.55 HEMOGLOBIN 14.2 HEMATOCRIT 41.8 PLATELET [id number] SODIUM 143 POTASSIUM 4.2 CHLORIDE 104 ANION GAP 10 BUN 11 CREATININE 0.71 CALCIUM 8.8 ALBUMIN 3.8 TSH 0.78 LDL 71 HDL 50 TRIGLYCERIDES 111 URINE TOX SCREEN POSITIVE CANNABIS AND AMPHETAMINES URINALYSIS NEGATIVE Appearnace: Other (APPROPRIATE. AVERAGE HIGH AVERAGE WEIGHT MALE. WEARING STREET CLOTHING. SHORT DARK HAIR.) Speech: Normal Eye Contact: Normal Motor Activity: Normal Affect: Full Mood: Euthymic Orientation Impairment: None Memory Impairment: None Attention: Normal Hallucinations: None Other: None Suicidality: None Homicidality: None Delusions: None Behavior: Cooperative Insight: Fair Judgment: Fair Treatment ABILIFY 30 MG P.O. DAILY SEROQUEL 550 MG P.O. Q.H.S. TRAZODONE 200 MG P.O. Q.H.S. SENNA 8.6 MG ONE TAB P.O. Q.H.S. ATIVAN 1 MG P.O. Q.6 PRN NEEDED FOR ANXIETY Monitoring by Staff, Milieu, Group, and Individual counseling as needed -- According to the [place] Suicide Assessment the above named patient is on Q15 MINUTE CHECKS. LPS CONSERVED Total time spent 35 minutes on REVIEW OF Clinical notes [X ] RN notes [X] PCT documentation [X] SW notes Labs [ X] Medications [X] Care trends/care activity [X] Vitals [X] DISCUSSION WITH aircraft cylinder mechanic [X] Staff SW Treatment Team [X] Voice recognition software may have been used to dictate this note. There may be errors due to use of such software. Reporting of serious errors is appre ciated. Discharge PATIENT IS LPS CONSERVED POSSIBLE DISCHARGE TO [facility] ON WEDNESDAY CODING VISIT-PSYCHIATRY Date of Service: Dec 11, 2024 Billing Provider: KARIS HALLMAN APRN Psych Common Visit Codes: [id number] INP/OBS CARE(Low) Problem Qualifiers (1) Schizophrenia: Qualified Codes: F20.9 - Schizophrenia, unspecified KARIS HALLMAN APRN Dec 11, 2024 10:50
--- NOTE | 2024-12-11 17:50 | PROGRESS NOTE- Residence ---
Progress Note - Resident Providers to CC Resident Creating Document: ELE RIVERA RES ~ Antibiotic Timeout Antibiotic Ordered?: No Subjective Patient seen and examined today. Denies any complaints. States that he no longer has right wrist pain. Objective Vital Signs Date Time Temp Pulse Resp B/P (MAP) Pulse Ox O2 Delivery O2 Flow Rate FiO2 12/11/24 08:00 16 12/11/24 07:00 Room Air 12/10/24 20:00 98.6 90 121/71 (88) 96 General: Awake and alert HEENT: Normocephalic and atraumatic. Pupils equal round and reactive to light and accommodation. Extraocular movements intact. Oral and nasal mucosa moist Neck: Trachea is in midline. No masses or JVD Lungs: Bilateral normal breath sounds. No crackles, rhonchi or wheezes Heart: Regular rate and rhythm. S1-S2 normal. No rubs or murmurs Abdomen: Soft, nontender and nondistended. Bowel sounds present INVENTORY CONTROL ASSOCIATE: No gross sensory or motor abnormalities. CN II to XII grossly intact Extremities: No cyanosis, clubbing or edema Skin: Warm and dry Assessment Assessment A 24-year-old single male who was transferred from [place] for behavior rehabilitation for his behavior issues and substance abuse history was admitted for further management. Plan Plan Schizophrenia Management as per Psychiatry. Substance use history Urine toxicology screen positive for cannabinoids and methamphetamines on 10/24/2024 Repeat urine tox on 11/06/2024 was negative Management as per Psychiatry. Substance use navigator and licensed social worker consulted. Pain in right wrist - resolved Wrist x-ray: There is no evidence of an acute fracture, dislocation, blastic, or lytic lesions. Ele Rivera MD Internal Medicine Resident, PGY 3 Date of Service: Dec 11, 2024 Billing Provider: ALBARO BARNETT MD Common Visit Codes: [id number] INP/OBS CARE(LOW) ELE RIVERA RES Dec 11, 2024 17:50 ALBARO BARNETT MD Dec 11, 2024 19:17
[2024-12-11 18:52] VITALS: RESP 16
[2024-12-11 20:00] VITALS: BP 119/86; PULSE 105; RESP 18; TEMP 98.9; O2SAT 98
[2024-12-12 07:00] VITALS: RESP 14; O2SAT 98
[2024-12-12 07:30] VITALS: BP 81/42; PULSE 61; RESP 14; TEMP 97.9; O2SAT 98
[2024-12-12 07:40] VITALS: BP 124/71; PULSE 77
--- NOTE | 2024-12-12 10:55 | RADIOLOGY REPORT ---
INDICATION: RLQ ABD pain, constant/sharp TECHNIQUE: Graded compression technique along with Multiple real-time sonographic images were obtain ed for evaluation of the right lower quadrant. FINDINGS: The appendix was not visualized. No free fluid or lymph nodes are seen on this exam. IMPRESSION: 1.Nonvisualization of the appendix, thus cannot exclude appendicitis.
--- NOTE | 2024-12-12 14:14 | PROGRESS NOTE ---
Progress Note Dictate Providers to CC ~ Central Line/PICC still needed: N\\A Antibiotic Ordered?: No MRSA Education MRSA Education Provided to pt: No Objective Vitals Vital Signs Date Time Temp Pulse Resp B/P (MAP) Pulse Ox O2 Delivery O2 Flow Rate FiO2 12/12/24 07:40 77 124/71 (88) 12/12/24 07:30 97.9 14 98 Room Air Problem\\Assessment\\Plan Problems/Diagnosis: (1) Gravely disabled (2) Schizophrenia Psychiatrist's Progress Note Date of Service: Dec 12, 2024 Notes CHART REVIEW Pt is a 24-year-old single male who is currently conserved in [facility] and his conservator is Yocasta Mohannandez. Pt was recently at [facility] and was discharged in May 2024 and had placement at [facility] in [place]. 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 The pt is now at [facility] awaiting new placement. The pt reports that he felt he was doing well at his most recent placement and doesn't understand why he was moved out and why he likely cannot return. The pt reports that he was close to his dad and was getting visits and is worried he'll be moved to another facility with more restrictions. The pt appears upset and unable to process how the course of his actions led to where he's at now. The pt will likely be at [facility] until his conservator finds placement for him. ASSESSMENT The patient was interviewed in observation room. The patient was actively standing in hallway engaging with peers. The patient endorses "good." The patient endorses he is very excited about being discharged tomorrow to [facility]. The patient endorses no worsening mental health symptoms. Denies SI. Denies HI. Denies AVH. Patient endorses adequate food intake food intake. The patient reports last BM was yesterday. The patient is stable no acute distress noted. The patient presents as calm, cooperative, and engaged during session. The patient was encouraged to continue his medication regimen into follow all rules at [facility] in order to continue to further stabilize in keep placement. Per staff report patient is medication compliant. Per staff report no abnormal behaviors. Will continue daily assessment and adjusting treatment as needed. Closely monitor behavior and response to medication during hospitalization. Results Of any Diagn. Testing REVIEW OF LABS WBC 8.0 RBC 4.55 HEMOGLOBIN 14.2 HEMATOCRIT 41.8 PLATELET [id number] SODIUM 143 POTASSIUM 4.2 CHLORIDE 104 ANION GAP 10 BUN 11 CREATININE 0.71 CALCIUM 8.8 ALBUMIN 3.8 TSH 0.78 LDL 71 HDL 50 TRIGLYCERIDES 111 URINE TOX SCREEN POSITIVE CANNABIS AND AMPHETAMINES URINALYSIS NEGATIVE Appearnace: Other (APPROPRIATE. AVERAGE HIGH AVERAGE WEIGHT MALE. WEARING STREET CLOTHING. SHORT DARK HAIR.) Speech: Normal Eye Contact: Normal Motor Activity: Normal Affect: Full Mood: Euthymic Orientation Impairment: None Memory Impairment: None Attention: Normal Hallucinations: None Other: None Suicidality: None Homicidality: None Delusions: None Behavior: Cooperative Insight: Fair Judgment: Fair Treatment ABILIFY 30 MG P.O. DAILY SEROQUEL 550 MG P.O. Q.H.S. TRAZODONE 200 MG P.O. Q.H.S. SENNA 8.6 MG ONE TAB P.O. Q.H.S. ATIVAN 1 MG P.O. Q.6 PRN NEEDED FOR ANXIETY Monitoring by Staff, Milieu, Group, and Individual counseling as needed -- According to the [place] Suicide Assessment the above named patient is on Q15 MINUTE CHECKS. LPS CONSERVED Total time spent 30 minutes on REVIEW OF Clinical notes [X ] RN notes [X] PCT documentation [X] SW notes Labs [ X] Medications [X] Care trends/care activity [X] Vitals [X] DISCUSSION WITH building coordinator [X] Staff SW Treatment Team [X] Voice recognition software may have been used to dictate this note. There may be errors due to use of such software. Reporting of serious errors is appreciated. Discharge PATIENT IS LPS CONSERVED POSSIBLE DISCHARGE TO [facility] ON WEDNESDAY CODING VISIT-PSYCHIATRY Date of Service: Dec 12, 2024 Billing Provider: KARIS HALLMAN APRN Psych Common Visit Codes: [id number] INP/OBS CARE(Low) Problem Qualifiers (1) Schizophrenia: Qualified Codes: F20.9 - Schizophrenia, unspecified KARIS HALLMAN APRN Dec 12, 2024 14:14
[2024-12-12 20:00] VITALS: BP 132/81; PULSE 88; RESP 18; TEMP 97.8; O2SAT 99
[2024-12-12 22:43] VITALS: RESP 18; O2SAT 99
[2024-12-13 08:00] VITALS: BP 95/56; PULSE 59; RESP 15; TEMP 97.5; O2SAT 98
--- NOTE | 2024-12-13 10:50 | DISCHARGE SUMMARY ---
Discharge Summary Providers to CC ~ Discharge Summary Admission Diagnosis: SCHIZOPHRENIA. GRAVELY DISABLED Hospital Course DATE OF ADMISSION: DATE OF DISCHARGE: Discharge Diagnosis\\Comment: SCHIZOPHRENIA. GRAVELY DISABLED Operations\\Procedures: NONE Consultants: MEDICAL TEAM Complications: NONE Condition on DC: Stable 2 or more antipsychotic used: No 2/more antipsychotic addressed: No Does Patient smoke: Yes Smoking education given.: Yes Discharge Summary: CHART REVIEW Pt was recently at [facility] and was discharged in May 2024 and had placement at [facility] in [place]. 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 The pt is now at [facility] awaiting new placement. The pt reports that he felt he was doing well at his most recent placement and doesn't understand why he was moved out and why he likely cannot return. The pt reports that he was close to his dad and was getting visits and is worried he'll be moved to another facility with more restrictions. The pt appears upset and unable to process how the course of his actions led to where he's at now. The pt will likely be at [facility] until his conservator finds placement for him. Patient actively seen and examined on day of discharge 12/13/2024, by myself, AHSAN Rudolph. The patient is interviewed in observation room. The patient endorses "Good." Denies SI. Denies HI. Denies AVH. Temo was able to formulate a safety plan which includes going to the emergency room if symptoms return or worsen. Call [phone] or [phone] for immediate assistance if necessary. During his hospital stay, Temo received multidisciplinary treatment he adhered to his medication regimen and has been pleasant and cooperative. He denies any suicidal ideation (SI), homicidal ideation (HI), auditory/visual hallucination (HI). Staff has reported no behavioral issues, and the patient has been sleeping well, adequate food intake, with no mood or behavioral changes no rosi. MENTAL STATUS EXAM APPEARANCE: APPROPRIATELY. DRESSED IN STREET CLOTHING. SPEECH: CIRCUMSTANCE EYE CONTACT: NORMAL AFFECT: CONGRUENT WITH MOOD MOOD: "GOOD" ORIENTATION IMPAIRMENT: NONE MEMORY IMPAIRMENT: NONE ATTENTION: NORMAL HALLUCINATIONS: NONE SUICIDALITY: NONE HOMICIDALITY: NONE DELUSIONS: NONE BEHAVIOR: COOPERATIVE, PLEASANT JUDGMENT: FAIR INSIGHT: FAIR Continue Current Inpatient Psychotropic Regimen @ home Follow-Up with Psychiatric Provider Safety Plan Discussed DISCHARGE CONDITION: His readiness for discharge is supported by his stable mental status, adherence to treatment, and proactive approach to managing his mental health. Denies SI. Denies HI. Denies A/V/H. The patient has been informed to continue follow-up care to ensure ongoing support and monitoring. Patient discharged to [facility]. *Problems/Diagnosis: (1) Schizophrenia Status: Chronic (2) Gravely disabled Status: Acute Total Time Spent on D/C: > 30 Minutes Counseling Services Smoking & Tobacco Cessation: > 10 Minutes CODING VISIT-PSYCHIATRY Date of Service: Dec 13, 2024 Billing Provider: KARIS HALLMAN APRN Psych Common Visit Codes: 93164-[facility]/OBS DISCH DAY >30min Problem Qualifiers (1) Schizophrenia: Qualified Codes: F20.9 - Schizophrenia, unspecified KARIS HALLMAN APRN Dec 13, 2024 10:50
== END 2024-12-13 10:33 | DRG 885 ==
LOC: ADULT MH 15:37
PROVIDERS: ADMIT Psychiatry & Neurology Psychiatry; ATTEND Psychiatry & Neurology Psychiatry
PROC: GZHZZZZ Group Psychotherapy (ICD-10-PCS; principal; 2024-10-24)
PROC: GZ51ZZZ Individual Psychotherapy, Behavioral (ICD-10-PCS; 2024-10-24)
DX: F20.9 Schizophrenia, unspecified (principal); Z59.00 Homelessness unspecified; F12.10 Cannabis abuse, uncomplicated; Z20.822 Contact with and (suspected) exposure to COVID-19; M25.531 Pain in right wrist; Z91.040 Latex allergy status; Z91.09 Other allergy status, other than to drugs and biological substances; Z79.899 Other long term (current) drug therapy
CPT/HCPCS: 36415; 71045; 73100; 76705; 80053; 80061; 80305; 84443; 85025; 87081; 87811; A6250; Q0163; Q0177